=== PATIENT | male | born 1960 | race Hispanic/Latino ===

== ENCOUNTER 2017-08-16 13:31 | Inpatient (IN) | payer MEDICAID, OTHER ==
[2017-08-16 13:42] VITALS: BMI 36.1
--- NOTE | 2017-08-16 13:53 | ED PDOC ---
Arrival/HPI - General Time Seen by Provider: 08/16/17 13:40 Historian: Patient, EMS - History of Present Illness Narrative History of Present Illness (Text): 08/16/17 13:45 A 57 year old male, whose past medical history includes CVA with residual right sided weakness, hypertension and COPD, brought into the emergency department by EMS for possible code stroke. EMS reports patient was found face down on the floor unresponsive at 12:30 today. Patient was turned over then became uncooperative with slurred speech and was unable to move right side. Patient only recalls waking up at 10:00 this morning to have breakfast. Patient admits using heroin daily, her last used 2 bags of heroin yesterday night. He is unable to provide any further details. No clear time to when patient was last seen normal. Patient denies any fever, chills, nausea, vomiting, abdominal pain , chest pain, shortness of breath, headache, dizziness or any other complaints. PMD: Dr. Baxter Past Medical History - Provider Review Nursing Documentation Reviewed: Yes - Past History Past History: Non-Contributing - Infectious Disease Hx of Infectious Diseases: None - Cardiac Hx Hypertension: Yes - Pulmonary Hx Chronic Obstructive Pulmonary Disease (COPD): Yes Hx Emphysema: Yes - Neurological HX Cerebrovascular Accident: Yes Hx Seizures: No - HEENT Hx HEENT Disorder: No - Renal Hx Renal Disorder: No - Endocrine/Metabolic Hx Endocrine Disorders: No - Hematological/Oncological Hx Cancer: No - Integumentary Hx Dermatological Disorder: No - Musculoskeletal/Rheumatological Hx Musculoskeletal Disorders: Yes Hx Back Pain: Yes Hx Falls: No - Gastrointestinal Hx Gastrointestinal Disorders: No - Genitourinary/Gynecological Hx Sexually Transmitted Diseases: No - Psychiatric Hx Substance Use: Yes - Past Surgical History Past Surgical History: No Previous - Surgical History Hx Cardiac Catheterization: Yes - Anesthesia Hx Anesthesia: No - Suicidal Assessment Feels Threatened In Home Enviroment: No Family/Social History - Physician Review Nursing Documentation Reviewed: Yes Family/Social History: No Known Family HX Smoking Status: Light Smoker < 10 Cigarettes Daily Hx Alcohol Use: No Hx Substance Use: Yes Substance used: Heroin daily, last used yesterday night Hx Substance Use Treatment: Yes Allergies/Home Meds Allergies/Adverse Reactions: Allergies Penicillins Allergy (Verified 05/02/16 13:39) RASH Home Medications: Home Meds Medication Instructions Recorded Confirmed Tiotropium [Spiriva] 18 mcg IH DAILY 05/24/17 08/16/17 ALPRAZolam [Xanax] 1 tab PO TID PRN 08/16/17 08/16/17 Atorvastatin [Lipitor] 1 tab PO DAILY 08/16/17 08/16/17 Review of Systems - Physician Review All systems were reviewed & negative as marked: Yes - Review of Systems Constitutional: absent: Fevers, Night Sweats Respiratory: absent: SOB Cardiovascular: absent: Chest Pain Gastrointestinal: absent: Abdominal Pain, Nausea, Vomiting Neurological: Focal Weakness (right sided weakness ), Speech Changes (slurred speech). absent: Headache, Dizziness Physical Exam Vital Signs Reviewed: Yes Vital Signs Temp Pulse Resp BP Pulse Ox 08/16/17 18:20 78 17 165/100 H 95 08/16/17 17:32 82 18 159/110 H 98 08/16/17 16:39 87 168/123 H 08/16/17 16:37 86 18 168/123 H 95 08/16/17 14:45 195/116 H 08/16/17 13:32 98.6 F 89 18 156/122 H 94 L Temperature: Afebrile Blood Pressure: Hypertensive Pulse: Regular Respiratory Rate: Normal Appearance: Positive for: Well-Appearing, Non-Toxic, Comfortable Pain Distress: None Mental Status: Positive for: Alert and Oriented X 3 Finger Stick Blood Glucose: 98 - Systems Exam Head: Present: Other (Abrasion and hemotoma to right sided of forehead) Pupils: Present: PERRL Extroacular Muscles: Present: EOMI Conjunctiva: Present: Normal Mouth: Present: Moist Mucous Membranes Neck: Present: Normal Range of Motion Respiratory/Chest: Present: Clear to Auscultation, Good Air Exchange. No: Respiratory Distress, Accessory Muscle Use Cardiovascular: Present: Regular Rate and Rhythm, Normal S1, S2. No: Murmurs Abdomen: Present: Normal Bowel Sounds. No: Tenderness, Distention, Peritoneal Signs Back: Present: Normal Inspection Upper Extremity: Present: Normal Inspection, Normal ROM, NORMAL PULSES. No: Cyanosis, Edema Lower Extremity: Present: Normal Inspection, NORMAL PULSES. No: Edema, CALF TENDERNESS Neurological: Present: GCS=15, CN II-XII Intact, Speech Normal, Motor Func Grossly Intact, Normal Sensory Function, Normal Cerebellar Funct Skin: Present: Warm, Dry, Normal Color. No: Rashes Psychiatric: Present: Alert, Oriented x 3, Normal Insight, Normal Concentration Medical Decision Making ED Course and Treatment: 08/16/17 13:45 Impression: A 57 year old male brought in for slurred speech and right sided weakness. Patient admits to using 2 bags of heroin last night. Plan: -- Head CT -- Head CTA -- EKG -- Labs -- Reassess and disposition Progress Notes: Code stroke activated at 13:45. 08/16/17 13:45 Case discussed with neurologist Dr. Burnett, states no tPA since time frame is greater than 3 hours. Requests CTA head. States to administer Aspirin if CT results are negative. Report Date : 08/16/2017 14:11:06 PROCEDURE: CT HEAD WITHOUT CONTRAST. Dictator : Wisam Nino MD IMPRESSION: No acute findings. Dr. Lamas was called with results at 2:10 p.m. Report Date: 08/16/17 14:26 Procedure: CT angiography of the neck with contrast Dictated By: Wisam Thakkar MD Impression: Unremarkable CT angiography of the brain. EKG shows NSR at 93 BPM with 1 PVC. Interpreted by me. Will administer Aspirin. 08/16/17 14:55 On reevaluation, blood pressure 180/110. Patient denies any headache or dizziness at this time. Report Date : 08/16/2017 16:15:51 PROCEDURE: CT Cervical Spine without contrast Dictator : Rich Parada MD IMPRESSION: No acute findings related to/accounting for the clinical presentation. Additional benign and/or incidental findings described above. 08/16/17 16:33 Dr. Bae admitting physician for patients PMD Dr. Baxter. Case discussed with Dr. Bae, states to admit to hospitalist. Dr. Duncan jacob, awaiting call back. 08/16/17 17:[address] Song, who accepts patient admission to telemetry. 08/16/17 18:00 Negative Troponin. - Lab Interpretations Microbiology Results: Microbiology Results 08/16/17 14:41 Urine Urine Culture - Final <10,000 CFU/ML. MULTIPLE SPECIES. PROBABLE CONTAMINATION. Lab Results: 08/16/17 14:41 08/16/17 14:41 Lab Results 08/16/17 16:39: Urine Color Yellow, Urine Appearance Clear, Urine pH 6.5, Ur Specific [place] 1.010, Urine Protein Negative, Urine Glucose (UA) Negative, Urine Ketones Negative, Urine Blood Trace-intact H, Urine Nitrate Negative, Urine Bilirubin Negative, Urine Urobilinogen 0.2, Ur Leukocyte Esterase Negative , Urine RBC 0 - 2, Urine WBC 1 - 3, Ur Epithelial Cells 1 - 3 08/16/17 16:39: Urine Opiates Screen Positive H, Urine Methadone Screen Negative , Ur Barbiturates Screen Negative, Ur Phencyclidine Scrn Negative, Ur Amphetamines Screen Negative, U Benzodiazepines Scrn Negative, U Oth Cocaine Metabols Negative, U Cannabinoids Screen Negative 08/16/17 14:41: Hemoglobin A1c 6.1 08/16/17 14:41: Triglycerides 80, Cholesterol 166, LDL Cholesterol Direct 88, HDL Cholesterol 55 08/16/17 14:41: Troponin I < 0.01 08/16/17 14:41: WBC 8.9 D, RBC 5.32, Hgb 15.7, Hct 45.2, MCV 85.0, MCH 29.5, MCHC 34.7, RDW 15.2 H, Plt Count 123, MPV 10.4, Gran % 74.4 H, Lymph % (Auto) 13.4 L, Pierce % (Auto) 10.9 H, Eos % (Auto) 1.1 L, Baso % (Auto) 0.2, Gran # 6.59 H, Lymph # (Auto) 1.2, Pierce # (Auto) 1.0 H, Eos # (Auto) 0.1, Baso # (Auto ) 0.02 08/16/17 14:41: Sodium 136, Potassium 3.7, Chloride 99, Carbon Dioxide 25, Anion Gap 15, BUN 17, Creatinine 1.0, Est GFR ( Amer) > 60, Est GFR (Non- Af Amer) > 60, Random Glucose 106, Calcium 9.8, Total Bilirubin 1.1, AST 62 H, ALT 48, Alkaline Phosphatase 108, Total Protein 8.9 H, Albumin 4.3, Globulin 4.6 , Albumin/Globulin Ratio 0.9 L 08/16/17 14:41: PT 15.0 H, INR 1.31 H, APTT 35.4 - RAD Interpretation Radiology Orders: 08/16/17 13:46 HEAD W/O (CODE STROKE) [CT] Stat 08/16/17 13:47 CTA HEAD/NECK CODE STROKE [CT] Stat 08/16/17 14:54 CERVICAL SPINE W/O CONTRAST [CT] Stat - Medication Orders Current Medication Orders: Alprazolam (Xanax) 1 mg PO BID PRN; Protocol PRN Reason: Anxiety Last Admin: 08/20/17 21:20 Dose: 1 mg Behavioural Document 08/20/17 21:20 JAVIER (Rec: 08/20/17 21:20 JAVIER [id number]) Maintenance Maintenance Dose Yes Nonmedicinal Nonmedicinal Interventions Redirect Behavior Behavior for Medication: Anxiety Amlodipine Besylate (Norvasc) 10 mg PO DAILY MARLYN Last Admin: 08/20/17 09:16 Dose: 10 mg MAR Blood Pressure Document 08/20/17 09:16 TELOL (Rec: 08/20/17 09:16 TELOL [id number]) Blood Pressure Blood Pressure (100/60-150/90) 111/77 Aspirin (Ecotrin) 81 mg PO 0800 MARLYN Last Admin: 08/20/17 09:17 Dose: 81 mg Atorvastatin Calcium (Lipitor) 20 mg PO DIN MARLYN Last Admin: 08/20/17 17:34 Dose: 20 mg Clonidine HCl (Catapres) 0.1 mg PO TID PRN PRN Reason: hypertension Last Admin: 08/17/17 17:39 Dose: 0.1 mg MAR Pulse and Blood Pressure Document 08/17/17 17:39 DELIJ (Rec: 08/17/17 17:41 DELIJ [id number]) Pulse Pulse Rate (60-90) 78 Blood Pressure Blood Pressure (100/60-150/90) 156/108 Gabapentin (Neurontin) 300 mg PO BID MARLYN PRN Reason: Protocol Last Admin: 08/20/17 17:34 Dose: 300 mg Behavioural Document 08/20/17 17:34 [employer] (Rec: 08/20/17 17:34 [employer]VE[employer] WORKER [id number]) Maintenance Maintenance Dose Yes Nonmedicinal Nonmedicinal Interventions Therapeutic Communication Dextrose/Sodium Chloride (Dextrose 5%/0.45% Ns 1000 Ml) 1,000 mls @ 125 mls/hr IV .Q8H MARLYN Last Admin: 08/20/17 21:20 Dose: 125 mls/hr eMAR Start Stop Document 08/20/17 21:20 JAVIER (Rec: 08/20/17 21:21 JAVIER [id number]) Intravenous Solution Start Date 08/20/17 Start Time 21:21 End Date 08/21/17 Labetalol HCl (Trandate) 20 mg IV Q6H PRN PRN Reason: SBP>180 Lisinopril (Zestril) 20 mg PO DAILY MARLYN Last Admin: 08/20/17 09:16 Dose: 20 mg MAR Pulse and Blood Pressure Document 08/20/17 09:16 TELOL (Rec: 08/20/17 09:17 TELOL [id number]) Pulse Pulse Rate (60-90) 75 Blood Pressure Blood Pressure (100/60-150/90) 111/77 Lorazepam (Ativan) 1 mg IVP Q2H PRN; Protocol PRN Reason: Agitation Last Admin: 08/18/17 07:03 Dose: 1 mg IVP Administration Document 08/18/17 07:03 KOPPS (Rec: 08/18/17 07:04 KOPPS [id number]) Charges for Administration # of IVP Administrations 1 Behavioural Document 08/18/17 07:03 KOPPS (Rec: 08/18/17 07:04 KOPPS [id number]) Maintenance Maintenance Dose Yes Nonmedicinal Nonmedicinal Interventions Redirect Therapeutic Communication Activity Behavior Behavior for Medication: Anxiety Re-Assess: Reassess Psych Meds Document 08/18/17 07:33 KOPPS (Rec: 08/18/17 07:49 KOPPS [id number]) Reassess Psych Med Effective Paroxetine HCl (Paxil) 10 mg PO HS MARLYN Last Admin: 08/20/17 21:16 Dose: 10 mg Quetiapine Fumarate (Seroquel) 75 mg PO HS MARLYN PRN Reason: Protocol Tiotropium [place] (Spiriva) 18 mcg IH DAILY MARLYN Last Admin: 08/20/17 09:17 Dose: 18 mcg Discontinued Medications Alprazolam (Xanax) 1 mg PO TID PRN; Protocol PRN Reason: Anxiety Last Admin: 08/18/17 16:27 Dose: 1 mg Behavioural Document 08/18/17 16:27 DC (Rec: 08/18/17 16:27 DC [place] [id number]) Maintenance Maintenance Dose No Nonmedicinal Nonmedicinal Interventions Redirect Therapeutic Communication Activity Behavior Behavior for Medication: Anxiety Re-Assess: Reassess Psych Meds Document 08/18/17 17:27 DC (Rec: 08/18/17 18:17 DC [id number]) Reassess Psych Med Effective Amlodipine Besylate (Norvasc) 10 mg PO DAILY MARLYN Amlodipine Besylate (Norvasc) 10 mg PO STAT STA Stop: 08/17/17 07:45 Last Admin: 08/17/17 08:49 Dose: 10 mg MAR Blood Pressure Document 08/17/17 08:49 DELIJ (Rec: 08/17/17 08:50 DELIJ [id number]) Blood Pressure Blood Pressure (100/60-150/90) 169/71 Aspirin (Aspirin) 325 mg PO STAT STA Stop: 08/16/17 14:59 Last Admin: 08/16/17 15:21 Dose: 325 mg Atorvastatin Calcium (Lipitor) 40 mg PO DAILY [facility] Last Admin: 08/17/17 09:40 Dose: 40 mg Enalaprilat (Vasotec Iv) 1.25 mg IVP STAT STA Stop: 08/16/17 18:55 Last Admin: 08/16/17 19:24 Dose: Not Given Non-Admin Reason: BP Parameters Not Met MAR Blood Pressure Document 08/16/17 19:24 AP (Rec: 08/16/17 19:24 AP [id number]) Blood Pressure Blood Pressure (100/60-150/90) 143/88 Hydralazine HCl (Apresoline) 50 mg PO ONCE ONE Stop: 08/16/17 18:56 Last Admin: 08/16/17 19:59 Dose: 50 mg [facility] Pulse and Blood Pressure Document 08/16/17 19:59 AP (Rec: 08/16/17 19:59 AP [id number]) Pulse Pulse Rate (60-90) 75 Blood Pressure Blood Pressure (100/60-150/90) 143/88 Sodium Chloride (Sodium Chloride 0.9%) 500 mls @ 999 mls/hr IV .Q31M STA Stop: 08/19/17 17:32 Last Admin: 08/19/17 18:26 Dose: 999 mls/hr Comments: does not scan eMAR Start Stop Document 08/19/17 18:26 NALLELY (Rec: 08/19/17 18:26 NALLELY [id number]) Intravenous Solution Start Date 08/19/17 Start Time 18:26 Labetalol HCl (Trandate) 20 mg IV STAT STA Stop: 08/16/17 16:16 Last Admin: 08/16/17 16:39 Dose: 20 mg eMAR Start Stop Document 08/16/17 16:39 [facility] (Rec: 08/16/17 16:39 [facility] [id number]) Intravenous Solution Start Date 08/16/17 Start Time 16:39 End Date 08/16/17 End time 16:43 Total Infusion Time 4 MAR Pulse and Blood Pressure Document 08/16/17 16:39 [facility] (Rec: 08/16/17 16:39 [facility] [id number]) Pulse Pulse Rate (60-90) 87 Blood Pressure Blood Pressure (100/60-150/90) 168/123 Labetalol HCl (Trandate) 20 mg IV PRN PRN PRN Reason: SBP>180 Lisinopril (Zestril) 10 mg PO DAILY [facility] Last Admin: 08/17/17 09:40 Dose: 10 mg MAR Pulse and Blood Pressure Document 08/17/17 09:40 MAYTE (Rec: 08/17/17 09:40 [id number] Pulse Pulse Rate (60-90) 74 Blood Pressure Blood Pressure (100/60-150/90) 169/71 Lisinopril (Zestril) 10 mg PO DAILY [facility] Lisinopril (Zestril) 10 mg PO STAT STA Stop: 08/17/17 13:00 Last Admin: 08/17/17 13:55 Dose: 10 mg MAR Pulse and Blood Pressure Document 08/17/17 13:55 MAYTE (Rec: 08/17/17 13:55 [id number]) Pulse Pulse Rate (60-90) 88 Blood Pressure Blood Pressure (100/60-150/90) 169/108 Methadone HCl (Methadone) 20 mg PO ONCE ONE Stop: 08/17/17 12:05 Last Admin: 08/17/17 13:57 Dose: 20 mg MAR Pain Assessment Document 08/17/17 13:57 MAYTE (Rec: 08/17/17 13:58 [id number]) Pain Reassessment Is this a pain reassessment? No Presence of Pain Presence of Pain No Re-Assess: [facility] Pain Assessment Document 08/17/17 14:57 DELIJ (Rec: 08/17/17 17:39 DELIJ [id number]) Pain Reassessment Is this a pain reassessment? Yes Sleep Is patient sleeping during reassessment? No Presence of Pain Presence of Pain No Methadone HCl (Methadone) 15 mg PO ONCE ONE Stop: 08/18/17 12:01 Last Admin: 08/18/17 11:16 Dose: 15 mg [facility] Pain Assessment Document 08/18/17 11:16 DC (Rec: 08/18/17 11:16 DC [id number]) Pain Reassessment Is this a pain reassessment? Yes Presence of Pain Presence of Pain No Re-Assess: [facility] Pain Assessment Document 08/18/17 12:16 DC (Rec: 08/18/17 13:09 DC [id number]) Pain Reassessment Is this a pain reassessment? No Presence of Pain Presence of Pain No Description Effects of Pain not given for pain Methadone HCl (Methadone) 10 mg PO ONCE ONE Stop: 08/19/17 12:01 Last Admin: 08/19/17 11:34 Dose: Not Given Non-Admin Reason: Patient Refused [facility] Pain Assessment Document 08/19/17 11:34 NALLELY (Rec: 08/19/17 11:35 NALLELY [id number]) Pain Reassessment Is this a pain reassessment? No Pneumococcal Polyvalent Vaccine (Pneumovax 23 Vaccine) 0.5 ml IM .ONCE ONE Stop: 08/16/17 23:04 Last Admin: 08/16/17 23:49 Dose: Immunization Registry Document 08/16/17 23:49 AP (Rec: 08/16/17 23:49 AP [id number]) Immunization Registry Consent Date 05/24/17 Quetiapine Fumarate (Seroquel) 100 mg PO HS [facility] PRN Reason: Protocol Last Admin: 08/18/17 22:06 Dose: 100 mg Behavioural Document 08/18/17 22:06 KOPPS (Rec: 08/18/17 22:06 KOPPS [id number]) Maintenance Maintenance Dose Yes Nonmedicinal Nonmedicinal Interventions Redirect Therapeutic Communication Activity Behavior Behavior for Medication: Anxiety Re-Assess: Reassess Psych Meds Document 08/18/17 23:06 ROSSS (Rec: 08/19/17 05:37 KOPPS [id number]) Reassess Psych Med Effective Disposition/Present on Arrival - Present on Arrival Any Indicators Present on Arrival: No History of DVT/PE: No History of Uncontrolled Diabetes: No Urinary Catheter: No History Surgical Site Infection Following: None - Disposition Have Diagnosis and Disposition been Completed?: Yes Diagnosis: Syncope Disposition: HOSPITALIZED Disposition Time: 15:00 Patient Plan: Admission Patient Problems: Current Active Problems Problem Status Onset Syncope Acute Condition: STABLE
--- NOTE | 2017-08-16 14:19 | CT ---
PROCEDURE: CT HEAD WITHOUT CONTRAST. HISTORY: Code stroke COMPARISON: 07/25/2013 TECHNIQUE: Axial computed tomography images were obtained through the head/brain without intravenous contrast. Radiation dose: Total exam DLP = 1077 mGy-cm. This CT exam was performed using one or more of the following dose reduction techniques: Automated exposure control, adjustment of the mA and/or kV according to patient size, and/or use of iterative reconstruction technique. FINDINGS: HEMORRHAGE: No intracranial hemorrhage. BRAIN: No mass effect or edema. Chronic lacunar infarcts are seen in the left thalamus and the left leblanc radiata. VENTRICLES: Unremarkable. No hydrocephalus. CALVARIUM: Unremarkable. PARANASAL SINUSES: Unremarkable as visualized. No significant inflammatory changes. MASTOID AIR CELLS: Unremarkable as visualized. No inflammatory changes. OTHER FINDINGS: Dr. Lamas was called with results at 2:10 p.m. IMPRESSION: No acute findings
--- NOTE | 2017-08-16 14:28 | CT ---
PROCEDURE: CT Angiography of the neck with contrast HISTORY: ct COMPARISON: None available. TECHNIQUE: Contiguous axial images of the neck were obtained from the level of the skull-base to the superior mediastinum in the arteriographic phase of enhancement. Coronal and sagittal reformats or also generated. IV contrast dose: 150 cc of Omni 350 Radiation Dose - DLP: 738 mGy-cm This CT exam was performed using one or more of the following dose reduction techniques: Automated exposure control, adjustment of the mA and/or kV according to patient size, and/or use of iterative reconstruction technique. FINDINGS: RIGHT CAROTID ARTERIES: Common Carotid Artery: Normal. Carotid Bifurcation: Minimal calcified plaque. No significant stenosis Internal Carotid Artery:Normal. External Carotid Artery (proximal branches): Normal. LEFT CAROTID ARTERIES: Common Carotid Artery: Normal. Carotid Bifurcation: Minimal calcified plaque. No significant stenosis Internal Carotid Artery:Normal. External Carotid Artery (proximal branches): Normal. VERTEBRAL ARTERIES: Right Vertebral Artery: Normal. Left Vertebral Artery: Normal. OTHER FINDINGS: None. IMPRESSION: No evidence of stenosis CT Angiography of the Brain. HISTORY: ct COMPARISON: None available. TECHNIQUE: CT angiography of the intracranial arteries was performed. Coronal and sagittal maximum intensity projection reformated images were generated. This CT exam was performed using one or more of the following dose reduction techniques: Automated exposure control, adjustment of the mA and/or kV according to patient size, and/or use of iterative reconstruction technique. FINDINGS: INTERNAL CEREBRAL ARTERIES: Unremarkable. The skull base, petrous, cavernous and supraclinoid segments are bilaterally widely patent. ANTERIOR CEREBRAL ARTERIES: Unremarkable. A1 and A2 segments are widely patent. Smaller distal branches unremarkable, as visualized. MIDDLE CEREBRAL ARTERIES: Unremarkable. M1 and M2 segments are widely patent. Perisylvian branches grossly symmetric. POSTERIOR CIRCULATION: Basilar Artery: Unremarkable. Distal Vertebral Arteries: Unremarkable. Posterior Cerebral Arteries: Unremarkable. Posterior Inferior Cerebellar Arteries: Unremarkable. ANEURYSM/ VASCULAR MALFORMATIONS: None. OTHER FINDINGS: None. IMPRESSION: Unremarkable CT Angiography of the Brain.
[2017-08-16 15:02] LABS: BASO # 0.02 K/mm3 (0.0-2.0); BASO % 0.2 % (0.0-3.0); EOS # 0.1 (0.0-0.7); EOS % 1.1 % (1.5-5.0); GRAN # 6.59 (1.4-6.5); GRAN % 74.4 % (50.0-68.0); HEMOGLOBIN 15.7 g/dL (14.0-18.0); LYMPH # 1.2 (1.2-3.4); LYMPH % 13.4 % (22.0-35.0); MEAN CORPUSCULAR HEMOGLOBIN 29.5 pg (25.0-35.0); MEAN CORPUSCULAR HGB CONC 34.7 g/dl (31.0-37.0); MEAN PLATELET VOLUME 10.4 fl (7.0-11.0); MONO % 10.9 % (1.0-6.0); RBC 5.32 10^6/uL (3.5-6.1); RED CELL DISTRIBUTION WIDTH 15.2 % (11.5-14.5); WHITE BLOOD COUNT 8.9 10^3/ul (4.5-11.0)
[2017-08-16 15:08] LABS: ALB/GLOB RATIO 0.9 (1.1-1.8); ALBUMIN 4.3 g/dL (3.0-4.8); ALT/SGPT 48 U/L (7-56); AST/SGOT 62 U/L (17-59); BLOOD UREA NITROGEN 17 mg/dL (7-21); CALCIUM 9.8 mg/dL (8.4-10.5); GFR AFRICAN-AMERICAN > 60; GFR NON-AFRICAN AMERICAN > 60
[2017-08-16 15:10] LABS: INR 1.31 (0.93-1.08); PARTIAL THROMBOPLASTIN TIME 35.4 Seconds (25.1-36.5)
[2017-08-16] MEDS ORDERED: Labetalol 5 mg/ml Inj 20ML IV STA (16:15)
--- NOTE | 2017-08-16 16:17 | CT ---
PROCEDURE: CT Cervical Spine without contrast HISTORY: Trauma COMPARISON: None available. TECHNIQUE: Axial computed tomography images were obtained of the cervical spine without the use of intravenous contrast. Coronal and sagittal reformatted images were created and reviewed. Radiation dose: Total exam DLP = 030557 mGy-cm. This CT exam was performed using one or more of the following dose reduction techniques: Automated exposure control, adjustment of the mA and/or kV according to patient size, and/or use of iterative reconstruction technique. FINDINGS: VERTEBRAE: Reversal of the anatomic lordosis with kyphosis. Degree: Mild DISCS/SPINAL CANAL/NEURAL FORAMINA: Degenerative changes C5-6, C6-7. This primarily consists disc space. Discs heights are grossly preserved. PARASPINAL SOFT TISSUES: Unremarkable. OTHER FINDINGS: Upper lobe infiltrates incompletely visualized primarily affecting visible portions of the right upper lobe. Likely underlying emphysematous change. IMPRESSION: No acute findings related to/accounting for the clinical presentation. Additional benign and/or incidental findings described above.
[2017-08-16 17:03] LABS: PH,URINE 6.5 (4.7-8.0); URINE BILIRUBIN NEGATIVE (NEGATIVE); URINE BLOOD TRACE-INTACT (NEGATIVE); URINE GLUCOSE (UA) NEGATIVE (NEGATIVE); URINE LEUKOCYTE ESTERASE NEGATIVE Leu/uL (NEGATIVE); URINE PROTEIN NEGATIVE mg/dL (<30 mg/dL); URINE UROBILINOGEN 0.2 E.U./dL (<1 E.U./dL)
[2017-08-16 17:06] LABS: URINE APPEARANCE CLEAR (CLEAR); URINE COLOR YELLOW (YELLOW)
[2017-08-16 17:18] LABS: URINE RBC 0 - 2 /hpf (0-2)
[2017-08-16 17:22] LABS: BARBITURATES, UR NEGATIVE (NEGATIVE); BENZODIAZEPINES, UR NEGATIVE (NEGATIVE); OPIATES, UR POSITIVE (NEGATIVE); PHENCYCLIDINE, UR NEGATIVE (NEGATIVE)
--- NOTE | 2017-08-16 18:22 | CP.PCM.HP ---
<Liz Cooley - Last Filed: 08/16/17 19:03> History of Present Illness - History of Present Illness History of Present Illness: 57 year old male with a past medical history of hypertension, COPD, HCV, heroin snorting and tobacco smoking and a CVA with right sided residual weakness who presents for a syncopal episode. The son is present at bedside. The patient does not recollect the event. The son states he was sleeping and woke up to a loud noise and saw his father with his face planted on the floor (the area where he normally smokes cigarettes and snorts heroin). The patient denies any pre-syncopal events or experiencing any chest pain, nausea, twitching, or seizure like activity. The son was worried given his father's inebriated state so called 911. PMD: Dr. Baxter PMH: hypertension, CVA, HCV, heroin abuse PSH: Denies Allergies: Penicillin Medications: Reviewed Social: Disabled, smokes, drinks, and snorts heroin-used to do it intravenously in the past. Present on Admission - Present on Admission Any Indicators Present on Admission: No Review of Systems - Review of Systems All systems: reviewed and no additional remarkable complaints except Review of Systems: as per HPI Past Patient History - Infectious Disease Hx of Infectious Diseases: None - Past Medical History & Family History Past Medical History?: Yes - Past Social History Smoking Status: Light Smoker < 10 Cigarettes Daily - CARDIAC Hx Hypertension: Yes - PULMONARY Hx Chronic Obstructive Pulmonary Disease (COPD): Yes Hx Emphysema: Yes - NEUROLOGICAL HX Cerebrovascular Accident: Yes Hx Seizures: No - HEENT Hx HEENT Problems: No - RENAL Hx Chronic Kidney Disease: No - ENDOCRINE/METABOLIC Hx Endocrine Disorders: No - HEMATOLOGICAL/ONCOLOGICAL Hx Cancer: No - INTEGUMENTARY Hx Dermatological Problems: No - MUSCULOSKELETAL/RHEUMATOLOGICAL Hx Musculoskeletal Disorders: Yes Hx Back Pain: Yes Hx Falls: No - GASTROINTESTINAL Hx Gastrointestinal Disorders: No - GENITOURINARY/GYNECOLOGICAL Hx Sexually Transmitted Disorders: No - PSYCHIATRIC Hx Substance Use: Yes - SURGICAL HISTORY Hx Cardiac Catheterization: Yes - ANESTHESIA Hx Anesthesia: No Meds Allergies/Adverse Reactions: Allergies Allergy/AdvReac Type Severity Reaction Status Date / Time Penicillins Allergy RASH Verified 05/02/16 13:39 Physical Exam - Constitutional Appears: Non-toxic, No Acute Distress - Head Exam Head Exam: NORMOCEPHALIC Additional comments: abrasion on right forehead - Eye Exam Eye Exam: Conjunctival injection, Normal appearance - ENT Exam ENT Exam: Mucous Membranes Moist, Normal Oropharynx - Neck Exam Neck exam: Positive for: Normal Inspection - Respiratory Exam Respiratory Exam: Prolonged Expiratory Phase Additional comments: end expiratory wheezes - Cardiovascular Exam Cardiovascular Exam: RRR, +S1, +S2 - GI/Abdominal Exam GI & Abdominal Exam: Normal Bowel Sounds. absent: Guarding, Rebound - Extremities Exam Extremities exam: Positive for: normal inspection. Negative for: normal capillary refill - Back Exam Back exam: NORMAL INSPECTION. absent: CVA tenderness (L), CVA tenderness (R) - Neurological Exam Neurological exam: Alert, Oriented x3 Additional comments: right upper and lower extremity weakness - Psychiatric Exam Psychiatric exam: Normal Affect, Normal Mood - Skin Skin Exam: Dry, Intact, Normal Color, Warm Results - Vital Signs Recent Vital Signs: Last Vital Signs Temp 98.6 F 08/16/17 13:32 Pulse 82 08/16/17 17:32 Resp 18 08/16/17 17:32 BP 159/110 H 08/16/17 17:32 Pulse Ox 98 08/16/17 17:32 - Labs Result Diagrams: 08/16/17 14:41 08/16/17 14:41 Assessment & Plan - Assessment and Plan (Free Text) Assessment: 57 year old male with a past medical history of hypertension, COPD, HCV, heroin snorting and tobacco smoking and a CVA with right sided residual weakness who presents for a syncopal episode. Plan: 1) Syncope - CT head negative for acute infarct, but does demonstrate old left lacunar infarcts - CTA head, neck, and cervical spine - Consult neurology - Swallow and speech evaluation - PT evaulation - monitoring manager with vitals q4h 2) Hypertension - Amlodipine 10 mg - Lisinopril 10 mg 3) History of CVA - Aspirin 81 mg - Lipitor 40 mg 4) COPD - Tiotropium 18 mch INH 5) Affective disorder - Seroquel 100 mg HS - Xanax 1 mg TID PRN for anxiety 6) DVT - SCD Case discussed with attending physician, Dr. Delvis Song - Date & Time Date: 08/16/17 Time: 19:01 <Delvis Song - Last Filed: 08/18/17 16:40> Results - Vital Signs Recent Vital Signs: Last Vital Signs Temp 98.5 F 08/18/17 05:39 Pulse 89 08/18/17 05:39 Resp 20 08/18/17 05:39 BP 147/94 H 08/18/17 05:39 Pulse Ox 92 L 08/18/17 05:39 - Labs Result Diagrams: 08/16/17 14:41 08/16/17 14:41 Labs: Laboratory Results - last 24 hr 08/17/17 08/17/17 08/17/17 13:08 13:30 13:30 Vitamin B12 698 25-OH Vitamin D Total 22.4 L Thyroxine (T4) 15.4 H Total T3 1.80 H TSH 3rd Generation 0.22 L Attending/Attestation - Attestation I have personally seen and examined this patient.: Yes I have fully participated in the care of the patient.: Yes I have reviewed all pertinent clinical information: Yes Notes (Text): I have seen and examined the patient at bedside. Agree with the note above with the following additions/ exceptions: Briefly this is 57 year old male with history of hypertension, COPD, HCV (known and untreated), heroin abuse, tobacco use and CVA with right sided residual weakness who was brought by the son for evaluation of syncope. Patient denies any presyncopal and postictal confusion. CT revealed old lacunar infact. CTA pending. Patient is NPO until speech and swallow eval is done. Will start aspirin, lipitor, norvasc and lisinopril once he will pass his swallow eval. Continue seroquel and xanax prn. Tobacco and substance abuse counsellinng will be provided once he is more awake. Upon discharge patient will follow up with Dr Baxter. Dr Delvis Song
[2017-08-16] MEDS ORDERED: EnalaprilAT 1.25 mg/ml Inj IVP STA (18:54)
[2017-08-16] MEDS ORDERED: Labetalol 5 mg/ml Inj 20ML IV PRN ×2 (19:06→19:18)
[2017-08-16 20:27] LABS: HDL CHOLESTEROL 55 mg/dL (29-60)
[2017-08-16 20:37] LABS: LDL CHOLESTEROL 88 mg/dL (0-129)
[2017-08-16] MEDS ORDERED: Pneumococcal 23-Valent Vaccine IM ONE (23:03)
[2017-08-16] MEDS ORDERED: Influenza Vaccine 60 mcg/0.5 mL SYR (4YR UP) IM ONE (23:03)
--- NOTE | 2017-08-17 08:31 | RAD ---
HISTORY: code stroke COMPARISON: 05/02/2016 FINDINGS: LUNGS: No active pulmonary disease. PLEURA: No significant pleural effusion identified, no pneumothorax apparent. CARDIOVASCULAR: Mild cardiomegaly. OSSEOUS STRUCTURES: No significant abnormalities. VISUALIZED UPPER ABDOMEN: Normal. OTHER FINDINGS: None. IMPRESSION: No active disease.
[2017-08-17] MEDS: Tiotropium 18 mcg Cap For Inhalation IH SCH (11:01)
--- NOTE | 2017-08-17 11:08 | CARD ---
APPROVED REPORT EKG Measurement Heart [id number] [id number] <Conclusion> Sinus rhythm with one premature ventricular complex PRWP Possible Left atrial enlargement Left axis deviation/LAHB Prolonged QTc STTW changes c/w ischemia
--- NOTE | 2017-08-17 12:49 | CP.PCM.CON ---
History of Present Illness - History of Present Illness History of Present Illness: Mr. Yani Bravo is a 57 year old male with a past medical history of hypertension, COPD, HCV, heroin snorting and tobacco smoking and a CVA with right sided residual weakness who presents for a syncopal episode. The patient does not recollect the event. According to the H&P, his son states he was sleeping and woke up to a loud noise and saw his father with his face planted on the floor ( the area where he normally smokes cigarettes and snorts heroin).The son was worried given his father's inebriated state so called 911. The patient denies any pre-syncopal events or experiencing any chest pain, nausea, twitching, or seizure like activity. CTH of the head showed no acute findings. CTA of the head and neck showed no evidence of stenosis in the neck and unremarkable CTA of the brain. The UDOA showed positive for opiates.At present, he denies any headache, dizziness, blurred vision,tongue biting or incontinence, nausea, or vomiting. He does not remember being transported by ambulance, but remember being awake in the ED. He has superficial abrasion in his right side forehead and temporal area. Review of Systems - Review of Systems All systems: reviewed and no additional remarkable complaints except Past Patient History - Infectious Disease Hx of Infectious Diseases: None - Past Medical History & Family History Past Medical History?: Yes - Past Social History Smoking Status: Light Smoker < 10 Cigarettes Daily - CARDIAC Hx Hypertension: Yes Hx Peripheral Edema: Yes (ble +1) - PULMONARY Hx Respiratory Disorders: Yes (rti) Hx Chronic Obstructive Pulmonary Disease (COPD): Yes Hx Emphysema: Yes - NEUROLOGICAL HX Cerebrovascular Accident: Yes (r side weakness residual) Hx Dizziness: Yes Hx Seizures: No - HEENT Hx HEENT Problems: Yes (eyeglasses) - RENAL Hx Chronic Kidney Disease: No - ENDOCRINE/METABOLIC Hx Endocrine Disorders: No - HEMATOLOGICAL/ONCOLOGICAL Hx Hepatitis C: Yes - INTEGUMENTARY Other/Comment: abrasion/hematoma r forehead - MUSCULOSKELETAL/RHEUMATOLOGICAL Hx Falls: Yes (found face down unresponsive today) - GASTROINTESTINAL Hx Gastrointestinal Disorders: Yes (obese) - GENITOURINARY/GYNECOLOGICAL Hx Sexually Transmitted Disorders: No - PSYCHIATRIC Hx Substance Use: Yes (heroine iv) - SURGICAL HISTORY Hx Surgeries: Yes Hx Cardiac Catheterization: Yes - ANESTHESIA Hx Anesthesia: No Meds Allergies/Adverse Reactions: Allergies Allergy/AdvReac Type Severity Reaction Status Date / Time Penicillins Allergy RASH Verified 05/02/16 13:39 - Medications Medications: Current Medications Alprazolam (Xanax) 1 mg PO TID PRN; Protocol PRN Reason: Anxiety Last Admin: 08/16/17 19:59 Dose: 1 mg Amlodipine Besylate (Norvasc) 10 mg PO DAILY [facility] Aspirin (Ecotrin) 81 mg PO 0800 [facility] Last Admin: 08/17/17 08:50 Dose: 81 mg Atorvastatin Calcium (Lipitor) 40 mg PO DAILY [facility] Last Admin: 08/17/17 09:40 Dose: 40 mg Gabapentin (Neurontin) 300 mg PO BID [facility] PRN Reason: Protocol Last Admin: 08/17/17 09:40 Dose: 300 mg Labetalol HCl (Trandate) 20 mg IV Q6H PRN PRN Reason: SBP>180 Lisinopril (Zestril) 10 mg PO DAILY [facility] Last Admin: 08/17/17 09:40 Dose: 10 mg Lorazepam (Ativan) 1 mg IVP Q2H PRN; Protocol PRN Reason: Agitation Quetiapine Fumarate (Seroquel) 100 mg PO HS [facility] PRN Reason: Protocol Last Admin: 08/16/17 23:00 Dose: Not Given Tiotropium [place] (Spiriva) 18 mcg IH DAILY [facility] Last Admin: 08/17/17 11:01 Dose: 18 mcg Physical Exam - Constitutional Appears: No Acute Distress - Head Exam Head Exam: NORMAL INSPECTION - Eye Exam Eye Exam: PERRL Pupil Exam: NORMAL ACCOMODATION, PERRL - ENT Exam ENT Exam: Mucous Membranes Moist, Normal Exam - Neck Exam Neck exam: Positive for: Normal Inspection - Respiratory Exam Respiratory Exam: Clear to Auscultation Bilateral - Cardiovascular Exam Cardiovascular Exam: +S1, +S2 - GI/Abdominal Exam GI & Abdominal Exam: Normal Bowel Sounds, Soft. absent: Tenderness - Extremities Exam Extremities exam: Positive for: normal inspection - Neurological Exam Neurological exam: Alert, CN II-XII Intact, Oriented x3, Reflexes Normal - Expanded Neurological Exam Expanded Patient oriented to: person, place, time Cranial nerves: EOM's Intact: Normal, Facial Palsey w/Forehead Movement: Normal , Facial Palsey w/o Forehead Movement: Normal, Facial Sensation: Normal, Gag Reflex: Normal, Nystagmus: Normal, Tongue Deviation: Normal Ataxia: No Cerebellar Function: Finger to Nose: Normal, Heel to [place]: Normal Upper motor neuron: Pronator Drift: Normal, Sensory Extinction: Normal Sensory exam: Lower Extremity 2 Point Discrimination: Normal, Lower Extremity Light Touch: Normal, Lower Extremity Pin Prick: Normal, Lower Extremity Temperature: Normal, Upper Extremity 2 Point Discrimination: Normal, Upper Extremity Light Touch: Normal, Upper Extremity Pin Prick: Normal, Upper Extremity Temperature: Normal Neuro motor strength exam: Left Upper Extremity: 5, Right Upper Extremity: 4, Left Lower Extremity: 5, Right Lower Extremity: 4 Results - Vital Signs Recent Vital Signs: Last Vital Signs Temp 97.7 F 08/17/17 06:00 Pulse 74 08/17/17 09:40 Resp 20 08/17/17 06:00 BP 169/71 H 08/17/17 09:40 Pulse Ox 95 08/17/17 06:00 - Labs Result Diagrams: 08/16/17 14:41 08/16/17 14:41 Assessment & Plan (1) Syncope Assessment and Plan: 57 year old male with a past medical history of hypertension, COPD, HCV, heroin snorting and tobacco smoking and a CVA with right sided residual weakness who presents for a syncopal episode. Case discussed with Dr. Burnett with recommendations for the following 1. Telemetry monitoring 2. MRI of the brain without contrast 3. Echocardiogram 4. PT, OT, eval. and treat. 5. Aspirin 81 mg PO daily 6. Lipitor 20 mg PO daily to keep LDL< 70. 7. social media designer/ case management referral for alcohol/ drug counseling. 8. DVT prophylaxis. 9. Blood pressure control 10. Blood work: TSH, T3, T4, vitamin D, Vitamin b12 11. EEG Thank you Status: Acute
--- NOTE | 2017-08-17 13:42 | CP.PCM.PN ---
<MiladyDanny - Last Filed: 08/17/17 13:29> Subjective - Date & Time of Evaluation Date of Evaluation: 08/17/17 Time of Evaluation: 13:29 - Subjective Subjective: Medicine progress note: Dr. Tiffani Song Patient seen and examined at bedside. He states he does not recall biting his tongue, losing bowel bladder, or feeling post-ictal after his suspected syncopal episode. Patient does state that he feels like he is withdrawing, and is diaphoretic. Other than that, patient is doing okay. Patient does admit to injecting heroin two months ago but states that now he only snorts it. Objective - Vital Signs/Intake and Output Vital Signs (last 24 hours): Temp Pulse Resp BP Pulse Ox 97.7 F 74 20 169/71 H 95 08/17/17 06:00 08/17/17 09:40 08/17/17 06:00 08/17/17 09:40 08/17/17 06:00 Intake and Output: 08/17/17 08/17/17 06:59 18:59 Intake Total 240 Balance 240 - Medications Medications: Current Medications Alprazolam (Xanax) 1 mg PO TID PRN; Protocol PRN Reason: Anxiety Last Admin: 08/16/17 19:59 Dose: 1 mg Amlodipine Besylate (Norvasc) 10 mg PO DAILY [facility] Aspirin (Ecotrin) 81 mg PO 0800 [facility] Last Admin: 08/17/17 08:50 Dose: 81 mg Atorvastatin Calcium (Lipitor) 20 mg PO DIN [facility] Clonidine HCl (Catapres) 0.1 mg PO TID PRN PRN Reason: hypertension Gabapentin (Neurontin) 300 mg PO BID [facility] PRN Reason: Protocol Last Admin: 08/17/17 09:40 Dose: 300 mg Labetalol HCl (Trandate) 20 mg IV Q6H PRN PRN Reason: SBP>180 Lisinopril (Zestril) 20 mg PO DAILY [facility] Lorazepam (Ativan) 1 mg IVP Q2H PRN; Protocol PRN Reason: Agitation Quetiapine Fumarate (Seroquel) 100 mg PO HS [facility] PRN Reason: Protocol Last Admin: 08/16/17 23:00 Dose: Not Given Tiotropium [place] (Spiriva) 18 mcg IH DAILY [facility] Last Admin: 08/17/17 11:01 Dose: 18 mcg - Labs Labs: PT 15.0 SECONDS (9.4-12.5) H 08/16/17 14:41 INR 1.31 (0.93-1.08) H 08/16/17 14:41 APTT 35.4 Seconds (25.1-36.5) 08/16/17 14:41 - Constitutional Appears: Well - Head Exam Head Exam: NORMAL INSPECTION, NORMOCEPHALIC. absent: ATRAUMATIC (Patient has an abrasion on the right side of his forehead) - Eye Exam Eye Exam: EOMI, Normal appearance, PERRL Pupil Exam: NORMAL ACCOMODATION, PERRL - ENT Exam ENT Exam: Mucous Membranes Moist, Normal Exam - Neck Exam Neck Exam: Full ROM, Normal Inspection. absent: Lymphadenopathy - Respiratory Exam Respiratory Exam: Clear to Ausculation Bilateral, NORMAL BREATHING PATTERN - Cardiovascular Exam Cardiovascular Exam: REGULAR RHYTHM, +S1, +S2, Murmur (Aortic ausculation point) - GI/Abdominal Exam GI & Abdominal Exam: Soft, Normal Bowel Sounds. absent: Tenderness - Extremities Exam Extremities Exam: Full ROM, Normal Capillary Refill, Normal Inspection. absent : Joint Swelling, Pedal Edema - Back Exam Back Exam: NORMAL INSPECTION - Neurological Exam Neurological Exam: Alert, Awake, CN II-XII Intact, Normal Gait, Oriented x3 - Psychiatric Exam Psychiatric exam: Normal Affect, Normal Mood - Skin Skin Exam: Dry, Intact, Normal Color, Warm Assessment and Plan - Assessment and Plan (Free Text) Assessment: 57 year old male with a past medical history of hypertension, COPD, HCV, heroin snorting and tobacco smoking and a CVA with right sided residual weakness who presents for a syncopal episode. Plan: Syncope - CT head negative for acute infarct, but does demonstrate old left lacunar infarcts - CTA head and neck: no acute process - CT Cervical spine: - Consult neurology: Dr. Burnett - Swallow and speech evaluation: passed - PT evaulation: pending - air pumper with vitals q4h Hypertension - Amlodipine 10 mg - Lisinopril 20 mg - Patient started on .1 clonidine TID and was given stat dose of lisinopril 10 just now Heroin Abuse - Discussed use of Methadone 20 with patient, gave him 20 today - ECHO ordered, patient used to inject and murmur appreciated History of CVA - Aspirin 81 mg - Lipitor 40 mg COPD - Tiotropium 18 mch INH Affective disorder - Seroquel 100 mg HS - Xanax 1 mg TID PRN for anxiety DVT - SCD <Delvis Song - Last Filed: 08/18/17 16:44> Objective - Vital Signs/Intake and Output Vital Signs (last 24 hours): Temp Pulse Resp BP Pulse Ox 99.5 F 105 H 20 109/75 92 L 08/18/17 12:00 08/18/17 12:00 08/18/17 12:00 08/18/17 12:00 08/18/17 05:39 Intake and Output: 08/18/17 08/18/17 06:59 18:59 Intake Total 480 Output Total 550 Balance -70 - Medications Medications: Current Medications Alprazolam (Xanax) 1 mg PO TID PRN; Protocol PRN Reason: Anxiety Last Admin: 08/18/17 05:03 Dose: 1 mg Amlodipine Besylate (Norvasc) 10 mg PO DAILY [facility] Last Admin: 08/18/17 11:15 Dose: 10 mg Aspirin (Ecotrin) 81 mg PO 0800 [facility] Last Admin: 08/18/17 11:16 Dose: 81 mg Atorvastatin Calcium (Lipitor) 20 mg PO DIN [facility] Last Admin: 08/17/17 17:38 Dose: 20 mg Clonidine HCl (Catapres) 0.1 mg PO TID PRN PRN Reason: hypertension Last Admin: 08/17/17 17:39 Dose: 0.1 mg Gabapentin (Neurontin) 300 mg PO BID [facility] PRN Reason: Protocol Last Admin: 08/18/17 11:15 Dose: 300 mg Labetalol HCl (Trandate) 20 mg IV Q6H PRN PRN Reason: SBP>180 Lisinopril (Zestril) 20 mg PO DAILY [facility] Last Admin: 08/18/17 11:16 Dose: 20 mg Lorazepam (Ativan) 1 mg IVP Q2H PRN; Protocol PRN Reason: Agitation Last Admin: 08/18/17 07:03 Dose: 1 mg Quetiapine Fumarate (Seroquel) 100 mg PO HS [facility] PRN Reason: Protocol Last Admin: 08/17/17 22:21 Dose: Not Given Tiotropium [place] (Spiriva) 18 mcg IH DAILY [facility] Last Admin: 08/18/17 11:16 Dose: 18 mcg - Labs Labs: PT 15.0 SECONDS (9.4-12.5) H 08/16/17 14:41 INR 1.31 (0.93-1.08) H 08/16/17 14:41 APTT 35.4 Seconds (25.1-36.5) 08/16/17 14:41 Attending/Attestation - Attestation I have personally seen and examined this patient.: Yes I have fully participated in the care of the patient.: Yes I have reviewed all pertinent clinical information, including history, physical exam and plan: Yes Notes (Text): I have seen and examined the patient at bedside. Agree with the note above with the following additions/ exceptions: Briefly this is 57 year old male with history of hypertension, COPD, HCV (known and untreated), heroin abuse, tobacco use and CVA with right sided residual weakness who was brought by the son for evaluation of syncope. Patient denies any presyncopal and postictal confusion. CT revealed old lacunar infact. CTA unremarkable. Patient has passed swallow eval. Will continue aspirin, lipitor, norvasc, seroquel, xanax prn and lisinopril. Patient reports that he is withdrawing from heroin and has lacrimation, rhinorrhea, diaphoresis, nausea, cramps, dizziness, irritability, insomnia and agitation. Will start methadone. Tobacco and substance abuse counselling provided. Upon discharge patient will follow up with Dr Baxter. Dr Delvis Song
[2017-08-17 14:31] LABS: T4 15.4 ug/dL (5.5-11.0)
[2017-08-17 14:45] LABS: T3 1.8 ng/mL (0.97-1.69)
--- NOTE | 2017-08-17 16:31 | MRI ---
PROCEDURE: MRI BRAIN WITHOUT CONTRAST HISTORY: syncope COMPARISON: None. TECHNIQUE: Multiplanar, multisequence MR images of the brain were obtained without intravenous contrast enhancement. FINDINGS: HEMORRHAGE: There is a small area of hemosiderin deposition in the sandra consistent with a previous hemorrhagic infarct. DWI: No evidence of an acute or early subacute infarction. BRAIN PARENCHYMA: No mass effect or edema. Chronic lacunar infarcts are seen in the left leblanc radiata the left thalamus and the sandra. There are no acute findings. VENTRICLES: Unremarkable. No hydrocephalus. CRANIUM: Unremarkable. ORBITS: Grossly unremarkable. PARANASAL SINUSES/MASTOIDS: Clear VASCULAR SYSTEM: Skull base flow voids intact. OTHER FINDINGS: None. IMPRESSION: No acute findings
[2017-08-18] MEDS: Tiotropium 18 mcg Cap For Inhalation IH SCH (11:16)
--- NOTE | 2017-08-18 12:39 | CP.PCM.PN ---
Subjective - Date & Time of Evaluation Date of Evaluation: 08/18/17 Time of Evaluation: 12:32 - Subjective Subjective: Mr. Lomeli was seen and examined at the bedside. He is alert, oriented x 3. He denies any headache, lightheadedness, blurred vision, diplopia, nausea, and vomiting. He is able to follow simple commands. He is able to ambulate in steady gait. MRI of the brain showed no acute findings but small area of hemosiderin deposition in the sandra consistent with a previous hemorrhagic infarct. There was no untoward events overnight. Objective - Vital Signs/Intake and Output Vital Signs (last 24 hours): Temp Pulse Resp BP Pulse Ox 98.5 F 89 20 140/80 92 L 08/18/17 05:39 08/18/17 05:39 08/18/17 05:39 08/18/17 11:15 08/18/17 05:39 Intake and Output: 08/18/17 08/18/17 06:59 18:59 Intake Total 480 Output Total 550 Balance -70 - Medications Medications: Current Medications Alprazolam (Xanax) 1 mg PO TID PRN; Protocol PRN Reason: Anxiety Last Admin: 08/18/17 05:03 Dose: 1 mg Amlodipine Besylate (Norvasc) 10 mg PO DAILY [facility] Last Admin: 08/18/17 11:15 Dose: 10 mg Aspirin (Ecotrin) 81 mg PO 0800 [facility] Last Admin: 08/18/17 11:16 Dose: 81 mg Atorvastatin [place] (Lipitor) 20 mg PO DIN [facility] Last Admin: 08/17/17 17:38 Dose: 20 mg Clonidine HCl (Catapres) 0.1 mg PO TID PRN PRN Reason: hypertension Last Admin: 08/17/17 17:39 Dose: 0.1 mg Gabapentin (Neurontin) 300 mg PO BID [facility] PRN Reason: Protocol Last Admin: 08/18/17 11:15 Dose: 300 mg Labetalol HCl (Trandate) 20 mg IV Q6H PRN PRN Reason: SBP>180 Lisinopril (Zestril) 20 mg PO DAILY [facility] Last Admin: 08/18/17 11:16 Dose: 20 mg Lorazepam (Ativan) 1 mg IVP Q2H PRN; Protocol PRN Reason: Agitation Last Admin: 08/18/17 07:03 Dose: 1 mg Quetiapine Fumarate (Seroquel) 100 mg PO HS [facility] PRN Reason: Protocol Last Admin: 08/17/17 22:21 Dose: Not Given Tiotropium [place] (Spiriva) 18 mcg IH DAILY [facility] Last Admin: 08/18/17 11:16 Dose: 18 mcg - Labs Labs: PT 15.0 SECONDS (9.4-12.5) H 08/16/17 14:41 INR 1.31 (0.93-1.08) H 08/16/17 14:41 APTT 35.4 Seconds (25.1-36.5) 08/16/17 14:41 - Constitutional Appears: No Acute Distress - Head Exam Head Exam: NORMAL INSPECTION - Neurological Exam Neurological Exam: Alert, Awake, Oriented x3 Neuro motor strength exam: Left Upper Extremity: 5, Right Upper Extremity: 4, Left Lower Extremity: 5, Right Lower Extremity: 5 Additional comments: He is alert, oriented in all spheres, follows simple commands. Assessment and Plan (1) Syncope Assessment & Plan: Case discussed with Dr. Burnett, continue all current medical, physical, occupational therapies. Recommend to follow up with an outpatient neurologist and counselling regarding alcohol/ drug use upon discharge. Status: Acute
--- NOTE | 2017-08-18 17:40 | CP.PCM.PN ---
<MiladyDanny Mak - Last Filed: 08/18/17 18:09> Subjective - Date & Time of Evaluation Date of Evaluation: 08/18/17 Time of Evaluation: 17:37 - Subjective Subjective: Medicine progress note for Dr. Song Patient seen and examined at bedside, stated that he was withdrawing today. He got a xanax around 5A, but that did not help. Patient is also stating that he is wondering around ending his life, and patient said this to other staff as well. Other than that, patient has no new complaints Objective - Vital Signs/Intake and Output Vital Signs (last 24 hours): Temp Pulse Resp BP Pulse Ox 99.5 F 105 H 20 109/75 92 L 08/18/17 12:00 08/18/17 12:00 08/18/17 12:00 08/18/17 12:00 08/18/17 05:39 Intake and Output: 08/18/17 08/18/17 06:59 18:59 Intake Total 480 Output Total 550 Balance -70 - Medications Medications: Current Medications Alprazolam (Xanax) 1 mg PO TID PRN; Protocol PRN Reason: Anxiety Last Admin: 08/18/17 16:27 Dose: 1 mg Amlodipine Besylate (Norvasc) 10 mg PO DAILY [facility] Last Admin: 08/18/17 11:15 Dose: 10 mg Aspirin (Ecotrin) 81 mg PO 0800 [facility] Last Admin: 08/18/17 11:16 Dose: 81 mg Atorvastatin Calcium (Lipitor) 20 mg PO DIN [facility] Last Admin: 08/17/17 17:38 Dose: 20 mg Clonidine HCl (Catapres) 0.1 mg PO TID PRN PRN Reason: hypertension Last Admin: 08/17/17 17:39 Dose: 0.1 mg Gabapentin (Neurontin) 300 mg PO BID [facility] PRN Reason: Protocol Last Admin: 08/18/17 11:15 Dose: 300 mg Labetalol HCl (Trandate) 20 mg IV Q6H PRN PRN Reason: SBP>180 Lisinopril (Zestril) 20 mg PO DAILY [facility] Last Admin: 08/18/17 11:16 Dose: 20 mg Lorazepam (Ativan) 1 mg IVP Q2H PRN; Protocol PRN Reason: Agitation Last Admin: 08/18/17 07:03 Dose: 1 mg Quetiapine Fumarate (Seroquel) 100 mg PO [facility] PRN Reason: Protocol Last Admin: 08/17/17 22:21 Dose: Not Given Tiotropium [place] (Spiriva) 18 mcg IH DAILY [facility] Last Admin: 08/18/17 11:16 Dose: 18 mcg - Labs Labs: PT 15.0 SECONDS (9.4-12.5) H 08/16/17 14:41 INR 1.31 (0.93-1.08) H 08/16/17 14:41 APTT 35.4 Seconds (25.1-36.5) 08/16/17 14:41 - Constitutional Appears: Well - Head Exam Head Exam: ATRAUMATIC, NORMAL INSPECTION, NORMOCEPHALIC - Eye Exam Eye Exam: EOMI, Normal appearance, PERRL Pupil Exam: NORMAL ACCOMODATION, PERRL - ENT Exam ENT Exam: Mucous Membranes Moist, Normal Exam - Neck Exam Neck Exam: Full ROM, Normal Inspection. absent: Lymphadenopathy - Respiratory Exam Respiratory Exam: Clear to Ausculation Bilateral, NORMAL BREATHING PATTERN - Cardiovascular Exam Cardiovascular Exam: REGULAR RHYTHM, +S1, +S2. absent: Murmur - GI/Abdominal Exam GI & Abdominal Exam: Soft, Normal Bowel Sounds. absent: Tenderness - Extremities Exam Extremities Exam: Full ROM, Normal Capillary Refill, Normal Inspection. absent : Joint Swelling, Pedal Edema - Back Exam Back Exam: NORMAL INSPECTION - Neurological Exam Neurological Exam: Alert, Awake, CN II-XII Intact, Normal Gait, Oriented x3 - Psychiatric Exam Psychiatric exam: Normal Affect, Normal Mood - Skin Skin Exam: Dry, Intact, Normal Color, Warm Assessment and Plan - Assessment and Plan (Free Text) Assessment: 57 year old male with a past medical history of hypertension, COPD, HCV, heroin snorting and tobacco smoking and a CVA with right sided residual weakness who presents for a syncopal episode. Plan: Syncope - CT head negative for acute infarct, but does demonstrate old left lacunar infarcts - CTA head and neck: no acute process - CT Cervical spine: No acute findings - Consult neurology: Dr. Burnett - Swallow and speech evaluation: passed - PT evaulation: pending - dial brusher with vitals q4h Hypertension - Amlodipine 10 mg - Lisinopril 20 mg - Patient started on .1 clonidine TID and was given stat dose of lisinopril 10 just now Heroin Abuse - Discussed use of Methadone 20 with patient, gave him 20 today - ECHO ordered, patient used to inject and murmur appreciated: performed, pending read History of CVA - Aspirin 81 mg - Lipitor 40 mg COPD - Tiotropium 18 mch INH Affective disorder - Seroquel 100 mg HS - Xanax 1 mg TID PRN for anxiety Suicidal Ideations - Psych consult: Dr. Peguero - 1:1 DVT - SCD <Delvis Song B - Last Filed: 08/19/17 11:30> Objective - Vital Signs/Intake and Output Vital Signs (last 24 hours): Temp Pulse Resp BP Pulse Ox 97.5 F L 88 20 122/85 91 L 08/18/17 16:00 08/18/17 16:00 08/18/17 16:00 08/18/17 16:00 08/18/17 16:00 Intake and Output: 08/18/17 08/18/17 06:59 18:59 Intake Total 480 Output Total 550 Balance -70 - Medications Medications: Current Medications Alprazolam (Xanax) 1 mg PO TID PRN; Protocol PRN Reason: Anxiety Last Admin: 08/18/17 16:27 Dose: 1 mg Amlodipine Besylate (Norvasc) 10 mg PO DAILY [facility] Last Admin: 08/18/17 11:15 Dose: 10 mg Aspirin (Ecotrin) 81 mg PO 0800 [facility] Last Admin: 08/18/17 11:16 Dose: 81 mg Atorvastatin Calcium (Lipitor) 20 mg PO DIN [facility] Last Admin: 08/18/17 18:17 Dose: 20 mg Clonidine HCl (Catapres) 0.1 mg PO TID PRN PRN Reason: hypertension Last Admin: 08/17/17 17:39 Dose: 0.1 mg Gabapentin (Neurontin) 300 mg PO BID [facility] PRN Reason: Protocol Last Admin: 08/18/17 18:17 Dose: 300 mg Labetalol HCl (Trandate) 20 mg IV Q6H PRN PRN Reason: SBP>180 Lisinopril (Zestril) 20 mg PO DAILY [facility] Last Admin: 08/18/17 11:16 Dose: 20 mg Lorazepam (Ativan) 1 mg IVP Q2H PRN; Protocol PRN Reason: Agitation Last Admin: 08/18/17 07:03 Dose: 1 mg Quetiapine Fumarate (Seroquel) 100 mg PO HS [facility] PRN Reason: Protocol Last Admin: 08/17/17 22:21 Dose: Not Given Tiotropium [place] (Spiriva) 18 mcg IH DAILY [facility] Last Admin: 08/18/17 11:16 Dose: 18 mcg - Labs Labs: PT 15.0 SECONDS (9.4-12.5) H 08/16/17 14:41 INR 1.31 (0.93-1.08) H 08/16/17 14:41 APTT 35.4 Seconds (25.1-36.5) 08/16/17 14:41 Attending/Attestation - Attestation I have personally seen and examined this patient.: Yes I have fully participated in the care of the patient.: Yes I have reviewed all pertinent clinical information, including history, physical exam and plan: Yes Notes (Text): I have seen and examined the patient at bedside. Agree with the note above with the following additions/ exceptions: Briefly this is 57 year old male with history of hypertension, COPD, HCV (known and untreated), heroin abuse, tobacco use and CVA with right sided residual weakness who was brought by the son for evaluation of syncope. Patient denies any presyncopal and postictal confusion. CT revealed old lacunar infact. CTA unremarkable. Patient has passed swallow eval. Will continue aspirin, lipitor, norvasc, seroquel, xanax prn and lisinopril. Patient also has been having heroin withdrawal. Patient had lacrimation, rhinorrhea, diaphoresis, nausea, cramps, dizziness, irritability, insomnia and agitation. All symptoms are slightly better today. Continue tapering dose of methadone. Patient also expressed suicidal ideation. 1:1 was started and psych consult was called. Tobacco and substance abuse counselling provided. Upon discharge patient will follow up with Dr Baxter. Dr Delvis Song
[2017-08-19] MEDS: Tiotropium 18 mcg Cap For Inhalation IH SCH (09:23)
--- NOTE | 2017-08-19 13:30 | CP.PCM.PN ---
Subjective - Date & Time of Evaluation Date of Evaluation: 08/19/17 Time of Evaluation: 13:26 - Subjective Subjective: Medicine progress note: Dr. Tiffani Song Patient seen and examined at bedside. Patient denies any new complaints besides being sleepy. Objective - Vital Signs/Intake and Output Vital Signs (last 24 hours): Temp Pulse Resp BP Pulse Ox 97.8 F 70 20 120/80 94 L 08/19/17 06:00 08/19/17 06:00 08/19/17 06:00 08/19/17 09:22 08/19/17 06:00 Intake and Output: 08/19/17 08/19/17 06:59 18:59 Intake Total 900 Balance 900 - Medications Medications: Current Medications Alprazolam (Xanax) 1 mg PO TID PRN; Protocol PRN Reason: Anxiety Last Admin: 08/18/17 16:27 Dose: 1 mg Amlodipine Besylate (Norvasc) 10 mg PO DAILY [facility] Last Admin: 08/19/17 09:22 Dose: 10 mg Aspirin (Ecotrin) 81 mg PO 0800 [facility] Last Admin: 08/19/17 07:46 Dose: 81 mg Atorvastatin Calcium (Lipitor) 20 mg PO DIN [facility] Last Admin: 08/18/17 18:17 Dose: 20 mg Clonidine HCl (Catapres) 0.1 mg PO TID PRN PRN Reason: hypertension Last Admin: 08/17/17 17:39 Dose: 0.1 mg Gabapentin (Neurontin) 300 mg PO BID [facility] PRN Reason: Protocol Last Admin: 08/19/17 09:22 Dose: 300 mg Labetalol HCl (Trandate) 20 mg IV Q6H PRN PRN Reason: SBP>180 Lisinopril (Zestril) 20 mg PO DAILY [facility] Last Admin: 08/19/17 09:23 Dose: 20 mg Lorazepam (Ativan) 1 mg IVP Q2H PRN; Protocol PRN Reason: Agitation Last Admin: 08/18/17 07:03 Dose: 1 mg Quetiapine Fumarate (Seroquel) 100 mg PO HS [facility] PRN Reason: Protocol Last Admin: 08/18/17 22:06 Dose: 100 mg Tiotropium Lead (Spiriva) 18 mcg IH DAILY [facility] Last Admin: 08/19/17 09:23 Dose: 18 mcg - Labs Labs: PT 15.0 SECONDS (9.4-12.5) H 08/16/17 14:41 INR 1.31 (0.93-1.08) H 08/16/17 14:41 APTT 35.4 Seconds (25.1-36.5) 08/16/17 14:41 - Constitutional Appears: Well - Head Exam Head Exam: ATRAUMATIC, NORMAL INSPECTION, NORMOCEPHALIC - Eye Exam Eye Exam: EOMI, Normal appearance, PERRL Pupil Exam: NORMAL ACCOMODATION, PERRL - ENT Exam ENT Exam: Mucous Membranes Moist, Normal Exam - Neck Exam Neck Exam: Full ROM, Normal Inspection. absent: Lymphadenopathy - Respiratory Exam Respiratory Exam: Clear to Ausculation Bilateral, NORMAL BREATHING PATTERN - Cardiovascular Exam Cardiovascular Exam: REGULAR RHYTHM, +S1, +S2. absent: Murmur - GI/Abdominal Exam GI & Abdominal Exam: Soft, Normal Bowel Sounds. absent: Tenderness - Extremities Exam Extremities Exam: Full ROM, Normal Capillary Refill, Normal Inspection. absent : Joint Swelling, Pedal Edema - Back Exam Back Exam: NORMAL INSPECTION - Neurological Exam Neurological Exam: Alert, Awake, CN II-XII Intact, Normal Gait, Oriented x3 - Psychiatric Exam Psychiatric exam: Normal Affect, Normal Mood - Skin Skin Exam: Dry, Intact, Normal Color, Warm Assessment and Plan - Assessment and Plan (Free Text) Assessment: 57 year old male with a past medical history of hypertension, COPD, HCV, heroin snorting and tobacco smoking and a CVA with right sided residual weakness who presents for a syncopal episode. Plan: Syncope - CT head negative for acute infarct, but does demonstrate old left lacunar infarcts - CTA head and neck: no acute process - CT Cervical spine: No acute findings - Consult neurology: Dr. Burnett Patient should follow up as an outpatient - ECHO shows normal EF - Swallow and speech evaluation: passed - PT evaulation: Patient safe for discharge home - change director with vitals q4h Hypertension - Amlodipine 10 mg - Lisinopril 20 mg - Patient started on .1 clonidine TID Heroin Abuse - Discussed use of Methadone with patient; Methadone 10 given 08/19 (20 day 1, 15 day 2, 10 today) - Psych on board for cessation History of CVA - Aspirin 81 mg - Lipitor 40 mg COPD - Tiotropium 18 mch INH Affective disorder - Seroquel 100 mg HS - Xanax 1 mg TID PRN for anxiety Suicidal Ideations - Psych consult: Dr. Peguero Per Dr. Guo, patient should be kept for the weekend, may be taken to Psych tomorrow. Depends on bed availability - 1:1 discontinued DVT - SCD
[2017-08-19] MEDS ORDERED: Dextrose 50% SYRINGE Inj (50 ml) IVP ONE (16:55)
[2017-08-19] MEDS ORDERED: Sodium Chloride 0.9% 500 ML IV SCH (17:00)
[2017-08-19] MEDS ORDERED: Sodium Chloride 0.9% 500 ML IV STA (17:02)
[2017-08-19 17:27] LABS: HEMOGLOBIN 16.3 g/dL (14.0-18.0); MEAN CELL VOLUME 86.3 fl (80.0-105.0); MEAN CORPUSCULAR HEMOGLOBIN 30.1 pg (25.0-35.0); MEAN CORPUSCULAR HGB CONC 34.9 g/dl (31.0-37.0); MEAN PLATELET VOLUME 10.7 fl (7.0-11.0); RBC 5.41 10^6/uL (3.5-6.1); RED CELL DISTRIBUTION WIDTH 15.4 % (11.5-14.5); WHITE BLOOD COUNT 12.4 10^3/ul (4.5-11.0)
[2017-08-19 17:47] LABS: ALB/GLOB RATIO 1.1 (1.1-1.8); ALBUMIN 4.5 g/dL (3.0-4.8)
[2017-08-19 17:52] LABS: CALCIUM 9.8 mg/dL (8.4-10.5)
[2017-08-19 18:16] LABS: FREE T4 1.44 ng/dL (0.78-2.19)
[2017-08-19] MEDS: Dextrose 5%/0.45% NS 1,000 ML IV SCH (18:25)
--- NOTE | 2017-08-19 18:42 | CT ---
PROCEDURE: CT HEAD WITHOUT CONTRAST. HISTORY: Patient sukhdeep, has hx of cva COMPARISON: Comparison is made to the previous study dated 08/16/2017 TECHNIQUE: Axial computed tomography images were obtained through the head/brain without intravenous contrast. Radiation dose: Total exam DLP = 1006.97 mGy-cm. This CT exam was performed using one or more of the following dose reduction techniques: Automated exposure control, adjustment of the mA and/or kV according to patient size, and/or use of iterative reconstruction technique. FINDINGS: HEMORRHAGE: No intracranial hemorrhage. BRAIN: Again seen are foci of encephalomalacia at the left basal ganglia and leblanc radiata suggestive of old chronic infarction. Mild atrophy and mild chronic microvascular white matter ischemic disease are again noted. VENTRICLES: Unremarkable. No hydrocephalus. CALVARIUM: Unremarkable. PARANASAL SINUSES: Unremarkable as visualized. No significant inflammatory changes. MASTOID AIR CELLS: Unremarkable as visualized. No inflammatory changes. OTHER FINDINGS: None. IMPRESSION: No significant interval change noted since the previous exam. No evidence of acute intracranial hemorrhage mass effect or midline shift.
--- NOTE | 2017-08-20 00:29 | CON ---
DATE: HISTORY OF PRESENT ILLNESS: The patient is a 57-year-old white male with a long history of opiate dependency, almost 50-year history with multiple relapses, history of likely substance-induced mood disorder, possible major depression, anxiety disorder, no prior psychiatric admissions, no current psychiatric outpatient treatment, no history of suicide attempt, who was admitted to Medicine due to status post a syncopal episode. Psychiatrist called this patient; he indicated that he did not want to live anymore, and Psychiatry was requested for evaluation in this regard. Patient has been on a one-to-one and has been in fair control, but currently I prepared this recent note and met the patient at bedside. He feels tired, mildly sedated; however, he is well oriented to month, year, circumstances; and responses are coherent and consistent. Patient demonstrates that he is friendly and he is engaged and cooperative with questioning. Patient admits to feeling depressed, reports that this is because of major stressors, which includes his difficulty with opiate dependency, which started at age 10 and continues to use 10 to 15 bags of heroin daily. Patient also uses multiple other drugs and states, "doctor, I will be honest, I will use whatever comes my way." Patient is prescribed Xanax 1 mg p.o. t.i.d. by his primary care doctor, who he does not know the name of but is located on [place]. Patient reports that he minimizes the use of Xanax because he is aware that this drug can cause seizures and . Consistent with this, the patient has not required the Xanax three times daily while he was hospitalized [facility]. Patient appears generally well related and is not overly constricted and does not appear hopeless. He reports multiple stressors such as, as mentioned, heroin use as well as financial issues and he is wishing to move back to his home. Patient also has legal issues and putting a warrant for misdemeanor conduct, and because of this he cannot apply for housing. Patient reports that he wants to live; however, feels overwhelmed by current stressors. He also indicates that he is worried about returning to drugs, he has a very long history, and would like some social support as well in this regard. He does not appear to be interested in psychiatric admission at this time. Denies any suicidal thoughts or wishes and presented coherent, calm, and consistent and does not show any evidence of thought disorder. The vital signs and labs were reviewed by this provider. Relevant medications include Xanax 1 mg p.o. t.i.d., Neurontin 300 mg p.o. b.i.d., Ativan 1 mg IV q. 2 p.r.n., Seroquel 100 mg p.o. nightly and patient also received a 10 mg dose of methadone at noon this morning. SOCIAL HISTORY: The patient was born and raised in [place]. He is . He has three sons, he lives with his older son. He had a stroke a few years ago which led him to be on disability. Patient has a very long debilitating history of opiate dependency since age 10 with multiple relapses. He currently uses 10-15 bags of heroin daily and "whatever else he can gets his hands on." Please note that UDS was only positive for opiates on 08/16/2017. Patient reports there is warrant for arrest for misdemeanor due to disorderly conduct. Patient denies any alcohol abuse. Patient reports that he is prescribed Xanax 1 mg p.o. t.i.d.; however, does not use this medication on a daily basis. He fears the repercussions from withdrawal can lead to , and patient reports he has a supply at home which was recently written to him by his primary care doctor located in [place]. PSYCHIATRIC HISTORY: Patient denies any prior psychiatric admissions, suicide attempts, or psychiatric outpatient treatment. As noted above in social history, he is prescribed Xanax 1 mg p.o. t.i.d. by his primary care doctor and reports he has a supply at home and that he tries to take his medication infrequently as he is aware that would cause stroke and lead to . 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 RECOMMENDATIONS: At this time, patient is not in acute danger to himself or others; however, would benefit from stabilization on the Psychiatric Unit; however, patient differs on this treatment intervention. I would continue Xanax 1 mg p.o. t.i.d. p.r.n. for patient. He appears to be using this medication possibly on the unit. I would also continue Seroquel; however, lowered the dose to 75 mg nightly that he appeared very little sedated this morning. I would continue methadone 10 mg, to be decreased to 5 mg tomorrow, and then discontinued on Monday. Regarding depression, it is unclear whether the patient requires an antidepressant at this time as he does have multiple stressors including drug use causing mood issues as well as the fact that the patient does not appear hopeless or apathetic or depressed during my interview with him this morning. We will hold on an antidepressant recommendation at this time unless of course he changes his mind about going to the Psychiatric Inpatient Unit. I strongly recommend the patient that he get Social Work involved to determine his options regarding inpatient versus outpatient rehab program as well as referrals for prescribers of possible Suboxone or methadone on even naltrexone, which may help patient focus on his main priorities of improving his life rather than obtaining his next opiate dose for his craving. Patient knows that naltrexone cannot be given to the patient at this time as he must be clean from all opiates for at least 7 to 10 days. Psychiatry will continue to follow the patient every other day to monitor his progress on the unit and tolerance to the medication and stability. Please note that next followup will be on 08/21/2017. Osmany Guo MD
[2017-08-20] MEDS: Dextrose 5%/0.45% NS 1,000 ML IV SCH ×4 (06:06→21:20)
[2017-08-20 08:57] LABS: HEMOGLOBIN 15.2 g/dL (14.0-18.0); MEAN CELL VOLUME 87.2 fl (80.0-105.0); MEAN CORPUSCULAR HEMOGLOBIN 29.9 pg (25.0-35.0); MEAN CORPUSCULAR HGB CONC 34.3 g/dl (31.0-37.0); MEAN PLATELET VOLUME 10.6 fl (7.0-11.0); RBC 5.08 10^6/uL (3.5-6.1); RED CELL DISTRIBUTION WIDTH 15.2 % (11.5-14.5); WHITE BLOOD COUNT 9.1 10^3/ul (4.5-11.0)
[2017-08-20 09:10] LABS: CALCIUM 9.4 mg/dL (8.4-10.5)
[2017-08-20] MEDS: Tiotropium 18 mcg Cap For Inhalation IH SCH (09:17)
--- NOTE | 2017-08-20 12:46 | CP.PCM.PN ---
<MiladyDanny - Last Filed: 08/20/17 12:42> Subjective - Date & Time of Evaluation Date of Evaluation: 08/20/17 Time of Evaluation: 12:42 - Subjective Subjective: Medicine progress note: Dr. Talbot Patient seen and examined at bedside. Patient states he still feels drowsy, but feels better from yesterday. Patient denies any other complaints, and is willing to go to psych. Nurse called me yesterday and stated that patient felt fatigued and drowsy. Given Hx of CVA and initial presentation, I ordered Fingerstick, CT Head, Carotid U/s, NS bolus and D5 at 125/hr. Patient felt better. Objective - Vital Signs/Intake and Output Vital Signs (last 24 hours): Temp Pulse Resp BP Pulse Ox 97.8 F 81 19 111/77 98 08/20/17 06:00 08/20/17 10:00 08/20/17 06:00 08/20/17 09:16 08/20/17 06:00 Intake and Output: 08/20/17 08/20/17 06:59 18:59 Intake Total 1440 3480 Output Total 600 600 Balance 840 2880 - Medications Medications: Current Medications Alprazolam (Xanax) 1 mg PO BID PRN; Protocol PRN Reason: Anxiety Amlodipine Besylate (Norvasc) 10 mg PO DAILY [facility] Last Admin: 08/20/17 09:16 Dose: 10 mg Aspirin (Ecotrin) 81 mg PO 0800 [facility] Last Admin: 08/20/17 09:17 Dose: 81 mg Atorvastatin Calcium (Lipitor) 20 mg PO DIN [facility] Last Admin: 08/19/17 18:29 Dose: 20 mg Clonidine HCl (Catapres) 0.1 mg PO TID PRN PRN Reason: hypertension Last Admin: 08/17/17 17:39 Dose: 0.1 mg Gabapentin (Neurontin) 300 mg PO BID [facility] PRN Reason: Protocol Last Admin: 08/20/17 09:16 Dose: 300 mg Dextrose/Sodium Chloride (Dextrose 5%/0.45% Ns 1000 Ml) 1,000 mls @ 125 mls/hr IV .Q8H [facility] Last Admin: 08/20/17 10:35 Dose: Not Given Labetalol HCl (Trandate) 20 mg IV Q6H PRN PRN Reason: SBP>180 Lisinopril (Zestril) 20 mg PO DAILY [facility] Last Admin: 08/20/17 09:16 Dose: 20 mg Lorazepam (Ativan) 1 mg IVP Q2H PRN; Protocol PRN Reason: Agitation Last Admin: 08/18/17 07:03 Dose: 1 mg Paroxetine HCl (Paxil) 10 mg PO HS [facility] Quetiapine Fumarate (Seroquel) 75 mg PO HS [facility] PRN Reason: Protocol Tiotropium [place] (Spiriva) 18 mcg IH DAILY [facility] Last Admin: 08/20/17 09:17 Dose: 18 mcg - Labs Labs: 08/20/17 08:45 08/20/17 08:45 PT 15.0 SECONDS (9.4-12.5) H 08/16/17 14:41 INR 1.31 (0.93-1.08) H 08/16/17 14:41 APTT 35.4 Seconds (25.1-36.5) 08/16/17 14:41 - Constitutional Appears: Well - Head Exam Head Exam: ATRAUMATIC, NORMAL INSPECTION, NORMOCEPHALIC - Eye Exam Eye Exam: EOMI, Normal appearance, PERRL Pupil Exam: NORMAL ACCOMODATION, PERRL - ENT Exam ENT Exam: Mucous Membranes Moist, Normal Exam - Neck Exam Neck Exam: Full ROM, Normal Inspection. absent: Lymphadenopathy - Respiratory Exam Respiratory Exam: Clear to Ausculation Bilateral, NORMAL BREATHING PATTERN - Cardiovascular Exam Cardiovascular Exam: REGULAR RHYTHM, +S1, +S2. absent: Murmur - GI/Abdominal Exam GI & Abdominal Exam: Soft, Normal Bowel Sounds. absent: Tenderness - Extremities Exam Extremities Exam: Full ROM, Normal Capillary Refill, Normal Inspection. absent : Joint Swelling, Pedal Edema - Back Exam Back Exam: NORMAL INSPECTION - Neurological Exam Neurological Exam: Alert, Awake, CN II-XII Intact, Normal Gait, Oriented x3 - Psychiatric Exam Psychiatric exam: Normal Affect, Normal Mood - Skin Skin Exam: Dry, Intact, Normal Color, Warm Assessment and Plan - Assessment and Plan (Free Text) Assessment: 57 year old male with a past medical history of hypertension, COPD, HCV, heroin snorting and tobacco smoking and a CVA with right sided residual weakness who presents for a syncopal episode. Plan: Syncope - CT head negative for acute infarct, but does demonstrate old left lacunar infarcts - CTA head and neck: no acute process - CT Cervical spine: No acute findings - Consult neurology: Dr. 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 - CT head yesterday: No acute process - Carotid U/s: Performed, pending read AMANDA likely 2/2 dehydration - Patient's creatinine was 4.1 08/19, down to 2.8 08/20 - Continue hydration Hypertension - Hold all meds right now except Clonidine .1 TID - Amlodipine 10 mg - Lisinopril 20 mg - Patient started on .1 clonidine TID Heroin Abuse - Discussed use of Methadone with patient; No more methadone being given - Psych on board for cessation - Xanax for severe withdrawals History of CVA - Aspirin 81 mg - Lipitor 40 mg COPD - Tiotropium 18 mch INH Affective disorder - Seroquel 100 mg HS - Xanax 1 mg TID PRN for anxiety Suicidal Ideations - Psych consult: Dr. Peguero Per Dr. Guo, patient should be kept for the weekend, may be taken to Psych tomorrow. Depends on bed availability - 1:1 discontinued DVT - SCD Dispo: Pending resolution of AMANDA, Carotid Ultrasound read, and bed availability , patient may be able to go to psych tomorrow <Breanna Talbot - Last Filed: 08/20/17 14:45> Objective - Vital Signs/Intake and Output Vital Signs (last 24 hours): Temp Pulse Resp BP Pulse Ox 99.6 F 74 18 146/91 H 98 08/20/17 12:00 08/20/17 14:00 08/20/17 12:00 08/20/17 12:00 08/20/17 06:00 Intake and Output: 08/20/17 08/20/17 06:59 18:59 Intake Total 1440 3480 Output Total 600 600 Balance 840 2880 - Medications Medications: Current Medications Alprazolam (Xanax) 1 mg PO BID PRN; Protocol PRN Reason: Anxiety Amlodipine Besylate (Norvasc) 10 mg PO DAILY [facility] Last Admin: 08/20/17 09:16 Dose: 10 mg Aspirin (Ecotrin) 81 mg PO 0800 [facility] Last Admin: 08/20/17 09:17 Dose: 81 mg Atorvastatin Calcium (Lipitor) 20 mg PO DIN [facility] Last Admin: 08/19/17 18:29 Dose: 20 mg Clonidine HCl (Catapres) 0.1 mg PO TID PRN PRN Reason: hypertension Last Admin: 08/17/17 17:39 Dose: 0.1 mg Gabapentin (Neurontin) 300 mg PO BID [facility] PRN Reason: Protocol Last Admin: 08/20/17 09:16 Dose: 300 mg Dextrose/Sodium Chloride (Dextrose 5%/0.45% Ns 1000 Ml) 1,000 mls @ 125 mls/hr IV .Q8H [facility] Last Admin: 08/20/17 10:35 Dose: Not Given Labetalol HCl (Trandate) 20 mg IV Q6H PRN PRN Reason: SBP>180 Lisinopril (Zestril) 20 mg PO DAILY [facility] Last Admin: 08/20/17 09:16 Dose: 20 mg Lorazepam (Ativan) 1 mg IVP Q2H PRN; Protocol PRN Reason: Agitation Last Admin: 08/18/17 07:03 Dose: 1 mg Paroxetine HCl (Paxil) 10 mg PO HS [facility] Quetiapine Fumarate (Seroquel) 75 mg PO HS [facility] PRN Reason: Protocol Tiotropium [place] (Spiriva) 18 mcg IH DAILY [facility] Last Admin: 08/20/17 09:17 Dose: 18 mcg - Labs Labs: 08/20/17 08:45 08/20/17 08:45 PT 15.0 SECONDS (9.4-12.5) H 08/16/17 14:41 INR 1.31 (0.93-1.08) H 08/16/17 14:41 APTT 35.4 Seconds (25.1-36.5) 08/16/17 14:41 Attending/Attestation - Attestation I have personally seen and examined this patient.: Yes I have fully participated in the care of the patient.: Yes I have reviewed all pertinent clinical information, including history, physical exam and plan: Yes Notes (Text): 08/20/17 14:40 attending note; Patient seen and examined with resident. Patient is a 57 year old male with history of hypertension, COPD, HCV (known and untreated), heroin abuse, tobacco use and CVA with right sided residual weakness who was brought by the son for evaluation of syncope. Patient denies any presyncopal and postictal confusion. CT revealed old lacunar infact. CTA unremarkable. MRI of the brain is normal. patient had an episode of hypotension and dizziness yesterday. Repeat CT head is normal. Blood pressure medications on hold. creatinine improved from 4.1-2.6. continue IV fluids. Monitor creatinine closely. Will continue aspirin, lipitor. neurology evaluation appreciated. Patient also has been having heroin withdrawal.improved significantly. Patient also expressed suicidal ideation. Psychiatric evaluation appreciated. One-to-one discontinued. Tobacco and substance abuse counselling provided. Upon discharge patient will follow up with Dr. Baxter. possible transfer to psychiatric floor tomorrow if creatinine improves.
--- NOTE | 2017-08-21 00:24 | CON ---
DATE: HISTORY OF PRESENT ILLNESS: Patient is a 57-year-old white male with a long history of opiate dependency with multiple relapses, history of substance-induced mood disorder, anxiety disorder, multiple bouts of depression throughout his life, no prior psychiatric admissions, no current outpatient psychiatric treatment or suicide attempts, who was admitted to Medicine for further evaluation status post syncopal episode. Psychiatry was called to follow up on patient as he indicated to staff nurse that he did not want to live anymore. I met with patient at bedside yesterday and patient indicated that he was not suicidal or he was depressed and that he was frustrated about his stressors in his life. I met with him again today and he remains well oriented to month, year, and circumstances. His responses are coherent and consistent as they were yesterday. He is friendly, he is engaged, and he reports feeling more depressed today, a little hopeless, which he relates to his major stressors which include his opiate addiction and pending legal issues, and wish to finally move out of his son's home. He reports that he has low motivation, low energy, feels overwhelmed easily as well as hopeless and helpless. He is not hallucinating. He denies hallucinations. Anxiety is under fair control. There have been no behavioral issues on the unit. Affect is constricted, but at times appropriately reactive. Insight and judgement are considered to be fair. Vital signs and laboratory data were reviewed by this provider. Psychiatric medications were reviewed by this provider including Xanax 1 mg p.o. b.i.d. p.r.n., Neurontin 300 mg p.o. b.i.d., Seroquel 100 mg p.o. nightly. IMPRESSION: 1. Mood disorder, not otherwise specified. 2. Severe opiate use disorder. 3. Anxiety disorder, not otherwise specified, likely contribution of substance-induced mood disorder and substance-induced anxiety disorder, rule out major depressive disorder, moderate to severe. RECOMMENDATIONS: At this time, we will continue with medications as prescribed and start low-dose antidepressants for this patient, as this might help with his mood and anxiety. I appreciate that the patient's Xanax dose was decreased to 1 mg p.o. b.i.d., and addition of a standing agent might decrease his reliance on p.r.n. benzos for anxiety. Seroquel will be reduced to 75 mg nightly. Patient is interested in transfer to the Psychiatric Inpatient Unit for treatment and stabilization of depression; however, there are no beds available at this time. We will continue to monitor the patient on the medical floor. The Psychiatry will continue to visit with the patient in the medical floor and monitor his mood, symptoms, tolerance to the medications and determine continued appropriateness of psychiatric transfer. Specifically, Dr. Campos will follow up with patient tomorrow, on 08/21/2017. Osmany Guo MD
[2017-08-21] MEDS: Dextrose 5%/0.45% NS 1,000 ML IV SCH ×2 (06:17→14:31)
[2017-08-21 06:51] LABS: BASO # 0.04 K/mm3 (0.0-2.0); BASO % 0.5 % (0.0-3.0); EOS # 0.4 (0.0-0.7); EOS % 4.6 % (1.5-5.0); GRAN # 4.63 (1.4-6.5); GRAN % 54.6 % (50.0-68.0); HEMOGLOBIN 16.2 g/dL (14.0-18.0); LYMPH # 2.3 (1.2-3.4); LYMPH % 27.4 % (22.0-35.0); MEAN CORPUSCULAR HEMOGLOBIN 29.7 pg (25.0-35.0); MEAN PLATELET VOLUME 10.6 fl (7.0-11.0); MONO # 1.1 (0.1-0.6); MONO % 12.9 % (1.0-6.0); RBC 5.45 10^6/uL (3.5-6.1); RED CELL DISTRIBUTION WIDTH 14.7 % (11.5-14.5); WHITE BLOOD COUNT 8.5 10^3/ul (4.5-11.0)
[2017-08-21 07:18] LABS: ALB/GLOB RATIO 0.9 (1.1-1.8); ALBUMIN 3.8 g/dL (3.0-4.8); ALT/SGPT 38 U/L (7-56); AST/SGOT 36 U/L (17-59); BLOOD UREA NITROGEN 24 mg/dL (7-21); GFR AFRICAN-AMERICAN > 60; GFR NON-AFRICAN AMERICAN > 60
--- NOTE | 2017-08-21 10:02 | CARD ---
APPROVED REPORT EXAM: Two-dimensional and M-mode echocardiogram with Doppler and color Doppler. Other Information Quality : AverageRhythm : INDICATION Syncope , IV DRUG ABUSE 2D DIMENSIONS RVDd3.8 (2.9-3.5cm)Left Atrium (2D)3.8 (1.6-4.0cm) IVSd1.0 (0.7-1.1cm)LVDd4.0 (3.9-5.9cm) PWd1.2 (0.7-1.1cm)LVDs2.5 (2.5-4.0cm) FS (%) 37.9 %LVEF (%)68.0 (>50%) M-Mode DIMENSIONS Aortic Root3.80 (2.2-3.7cm)Aortic Cusp Exc.1.90 (1.5-2.0cm) Aortic Valve AoV Peak Qjtqdamu096.0cm/s Mitral Valve MV E Zywfizzo14.1cm/sMV A Kqyprqxa70.2cm/sE/A ratio0.6 TDI Lateral E' Peak V8.97cm/sMedial E' Peak V5.07cm/sE/Lateral E'6.3 E/Medial E'11.1 Pulmonary Valve PV Peak Dlwjnbka67.5cm/sPV Peak Grad.1mmHg Tricuspid Valve TR Peak Opxbcntg512cd/sRAP [id number] Peak Gr.61mmHg [id number] LEFT VENTRICLE The left ventricle is normal size. There is normal left ventricular wall thickness. The left ventricular function is normal. The left ventricular ejection fraction is within the normal range. Septal motion is abnormal. RIGHT VENTRICLE The right ventricle is mildly to moderately dilated. ATRIA The left atrium size is normal. The right atrium is mildly dilated. The interatrial septum is intact with no evidence for an atrial septal defect. AORTIC VALVE The aortic valve is normal in structure. MITRAL VALVE The mitral valve is normal in structure. TRICUSPID VALVE The tricuspid valve is normal in structure. There is mild tricuspid regurgitation. There is moderate-severe pulmonary hypertension. PULMONIC VALVE The pulmonary valve is normal in structure. GREAT VESSELS The aortic root is normal in size. PERICARDIAL EFFUSION There is no pericardial effusion. <Conclusion> The left ventricle is normal size. There is normal left ventricular wall thickness. The left ventricular function is normal. Septal motion is abnormal c/w RV pressure or volume overload. The right ventricle is mildly to moderately dilated. The right atrium is mildly dilated. There is mild tricuspid regurgitation. There is moderate-severe pulmonary hypertension.
[2017-08-21] MEDS: Tiotropium 18 mcg Cap For Inhalation IH SCH (10:16)
--- NOTE | 2017-08-21 12:57 | CP.PCM.PN ---
Subjective - Date & Time of Evaluation Date of Evaluation: 08/21/17 Time of Evaluation: 12:57 - Subjective Subjective: Mr. Lomeli was seen and examined at the bedside. He is alert, oriented x 3. He denies any headache, lightheadedness, blurred vision, diplopia, nausea, and vomiting. He is able to follow simple commands. He is able to ambulate in steady gait with the right side slightly weaker than the left. Echocardiogram showed moderate to severe pulmonary hypertension.There was no untoward events overnight. Objective - Vital Signs/Intake and Output Vital Signs (last 24 hours): Temp Pulse Resp BP Pulse Ox 98.1 F 70 18 177/99 H 93 L 08/21/17 12:00 08/21/17 12:00 08/21/17 12:00 08/21/17 12:00 08/21/17 06:00 Intake and Output: 08/21/17 08/21/17 06:59 18:59 Intake Total 2940 Output Total 4500 Balance -1560 - Medications Medications: Current Medications Alprazolam (Xanax) 1 mg PO BID PRN; Protocol PRN Reason: Anxiety Last Admin: 08/21/17 10:12 Dose: 1 mg Amlodipine Besylate (Norvasc) 10 mg PO DAILY [facility] Last Admin: 08/21/17 10:12 Dose: 10 mg Aspirin (Ecotrin) 81 mg PO 0800 [facility] Last Admin: 08/21/17 10:12 Dose: 81 mg Atorvastatin Calcium (Lipitor) 20 mg PO DIN [facility] Last Admin: 08/20/17 17:34 Dose: 20 mg Clonidine HCl (Catapres) 0.1 mg PO TID PRN PRN Reason: hypertension Last Admin: 08/20/17 23:54 Dose: 0.1 mg Gabapentin (Neurontin) 300 mg PO BID [facility] PRN Reason: Protocol Last Admin: 08/21/17 10:12 Dose: 300 mg Labetalol HCl (Trandate) 20 mg IV Q6H PRN PRN Reason: SBP>180 Lisinopril (Zestril) 20 mg PO DAILY [facility] Last Admin: 08/20/17 09:16 Dose: 20 mg Lorazepam (Ativan) 1 mg IVP Q2H PRN; Protocol PRN Reason: Agitation Last Admin: 08/18/17 07:03 Dose: 1 mg Paroxetine HCl (Paxil) 10 mg PO HS [facility] Last Admin: 08/20/17 21:16 Dose: 10 mg Quetiapine Fumarate (Seroquel) 75 mg PO HS [facility] PRN Reason: Protocol Tiotropium [place] (Spiriva) 18 mcg IH DAILY [facility] Last Admin: 08/21/17 10:16 Dose: 18 mcg - Labs Labs: 08/21/17 06:00 08/21/17 06:00 PT 15.0 SECONDS (9.4-12.5) H 08/16/17 14:41 INR 1.31 (0.93-1.08) H 08/16/17 14:41 APTT 35.4 Seconds (25.1-36.5) 08/16/17 14:41 - Constitutional Appears: No Acute Distress - Head Exam Head Exam: NORMAL INSPECTION - Neurological Exam Neurological Exam: Alert, Awake, Oriented x3 Neuro motor strength exam: Left Upper Extremity: 5, Right Upper Extremity: 4, Left Lower Extremity: 5, Right Lower Extremity: 4 Additional comments: Neurological unchanged from previous examination. Assessment and Plan (1) Syncope Assessment & Plan: Case discussed with Dr. Burnett, continue all current medical, physical, and occupational therapies. Recommend cardiology consult for the evaluation of moderate to severe pulmonary hypertension. Recommend blood pressure control. Status: Acute
--- NOTE | 2017-08-21 13:32 | CP.PCM.PN ---
<MiladyDanny - Last Filed: 08/21/17 13:28> Subjective - Date & Time of Evaluation Date of Evaluation: 08/21/17 Time of Evaluation: 09:15 - Subjective Subjective: Medicine progress note for Dr. Talbot Patient seen and examined at bedside. No acute complaints at this time, patient is less fatigued and groggy than he was over the weekend. Per chart review, patient has had a few hypertensive episodes over night. Patient is otherwise doing well, denies withdrawal symptoms. Objective - Vital Signs/Intake and Output Vital Signs (last 24 hours): Temp Pulse Resp BP Pulse Ox 98.1 F 70 18 177/99 H 93 L 08/21/17 12:00 08/21/17 12:00 08/21/17 12:00 08/21/17 12:00 08/21/17 06:00 Intake and Output: 08/21/17 08/21/17 06:59 18:59 Intake Total 2940 Output Total 4500 Balance -1560 - Medications Medications: Current Medications Alprazolam (Xanax) 1 mg PO BID PRN; Protocol PRN Reason: Anxiety Last Admin: 08/21/17 10:12 Dose: 1 mg Amlodipine Besylate (Norvasc) 10 mg PO DAILY [facility] Last Admin: 08/21/17 10:12 Dose: 10 mg Aspirin (Ecotrin) 81 mg PO 0800 [facility] Last Admin: 08/21/17 10:12 Dose: 81 mg Atorvastatin Calcium (Lipitor) 20 mg PO DIN [facility] Last Admin: 08/20/17 17:34 Dose: 20 mg Clonidine HCl (Catapres) 0.1 mg PO TID PRN PRN Reason: hypertension Last Admin: 08/20/17 23:54 Dose: 0.1 mg Gabapentin (Neurontin) 300 mg PO BID [facility] PRN Reason: Protocol Last Admin: 08/21/17 10:12 Dose: 300 mg Labetalol HCl (Trandate) 20 mg IV Q6H PRN PRN Reason: SBP>180 Lisinopril (Zestril) 20 mg PO DAILY [facility] Last Admin: 08/20/17 09:16 Dose: 20 mg Lorazepam (Ativan) 1 mg IVP Q2H PRN; Protocol PRN Reason: Agitation Last Admin: 08/18/17 07:03 Dose: 1 mg Paroxetine HCl (Paxil) 10 mg PO HS [facility] Last Admin: 08/20/17 21:16 Dose: 10 mg Quetiapine Fumarate (Seroquel) 75 mg PO HS [facility] PRN Reason: Protocol Tiotropium [place] (Spiriva) 18 mcg IH DAILY [facility] Last Admin: 08/21/17 10:16 Dose: 18 mcg - Labs Labs: 08/21/17 06:00 08/21/17 06:00 PT 15.0 SECONDS (9.4-12.5) H 08/16/17 14:41 INR 1.31 (0.93-1.08) H 08/16/17 14:41 APTT 35.4 Seconds (25.1-36.5) 08/16/17 14:41 - Constitutional Appears: Well - Head Exam Head Exam: ATRAUMATIC, NORMAL INSPECTION, NORMOCEPHALIC - Eye Exam Eye Exam: EOMI, Normal appearance, PERRL Pupil Exam: NORMAL ACCOMODATION, PERRL - ENT Exam ENT Exam: Mucous Membranes Moist, Normal Exam - Neck Exam Neck Exam: Full ROM, Normal Inspection. absent: Lymphadenopathy - Respiratory Exam Respiratory Exam: Clear to Ausculation Bilateral, NORMAL BREATHING PATTERN - Cardiovascular Exam Cardiovascular Exam: REGULAR RHYTHM, +S1, +S2. absent: Murmur - GI/Abdominal Exam GI & Abdominal Exam: Soft, Normal Bowel Sounds. absent: Tenderness - Extremities Exam Extremities Exam: Full ROM, Normal Capillary Refill, Normal Inspection. absent : Joint Swelling, Pedal Edema - Back Exam Back Exam: NORMAL INSPECTION - Neurological Exam Neurological Exam: Alert, Awake, CN II-XII Intact, Normal Gait, Oriented x3 - Psychiatric Exam Psychiatric exam: Normal Affect, Normal Mood - Skin Skin Exam: Dry, Intact, Normal Color, Warm Assessment and Plan - Assessment and Plan (Free Text) Assessment: 57 year old male with a past medical history of hypertension, COPD, HCV, heroin snorting and tobacco smoking and a CVA with right sided residual weakness who presents for a syncopal episode. Plan: Syncope - CT head negative for acute infarct, but does demonstrate old left lacunar infarcts - CTA head and neck: no acute process - CT Cervical spine: No acute findings - Consult neurology: Dr. Burnett Patient should follow up as an outpatient - ECHO shows normal EF - Swallow and speech evaluation: passed - PT evaulation: Patient safe for discharge home - Telemetry: discontinued Hypertension - Amlodipine 10 mg - restarted - Lisinopril 20 mg - still held, continue tomorrow - Labetalol 20 - restarted - Patient started on .1 clonidine TID Heroin Abuse - Discussed use of Methadone with patient; Methadone 10 given 08/19 (20 day 1, 15 day 2, 10 day 3) - Psych on board for cessation History of CVA - Aspirin 81 mg - Lipitor 40 mg COPD - Tiotropium 18 mch INH Affective disorder - Seroquel 100 mg HS - on hold 07/07 patient being groggy and hypotensive - Xanax 1 mg TID PRN for anxiety Suicidal Ideations - Psych consult: Dr. Peguero Per Dr. Guo, patient should be kept for the weekend, may be taken to Psych tomorrow. Depends on bed availability - 1:1 discontinued - Patient will be transferred to psychiatry DVT - SCD Dispo: At this time, patient stable from a medicine standpoint. Awaiting a bed in psychiatry unit. Will continue to monitor blood pressure today <Breanna Talbot - Last Filed: 08/21/17 15:55> Objective - Vital Signs/Intake and Output Vital Signs (last 24 hours): Temp Pulse Resp BP Pulse Ox 98.1 F 77 18 141/82 93 L 08/21/17 12:00 08/21/17 13:45 08/21/17 12:00 08/21/17 15:35 08/21/17 06:00 Intake and Output: 08/21/17 08/21/17 06:59 18:59 Intake Total 2940 540 Output Total 4500 Balance -1560 540 - Medications Medications: Current Medications Alprazolam (Xanax) 1 mg PO BID PRN; Protocol PRN Reason: Anxiety Last Admin: 08/21/17 10:12 Dose: 1 mg Amlodipine Besylate (Norvasc) 10 mg PO DAILY [facility] Last Admin: 08/21/17 10:12 Dose: 10 mg Aspirin (Ecotrin) 81 mg PO 0800 [facility] Last Admin: 08/21/17 10:12 Dose: 81 mg Atorvastatin [place] (Lipitor) 20 mg PO DIN [facility] Last Admin: 08/20/17 17:34 Dose: 20 mg Clonidine HCl (Catapres) 0.1 mg PO TID PRN PRN Reason: hypertension Last Admin: 08/20/17 23:54 Dose: 0.1 mg Gabapentin (Neurontin) 300 mg PO BID [facility] PRN Reason: Protocol Last Admin: 08/21/17 10:12 Dose: 300 mg Labetalol HCl (Trandate) 20 mg IV Q6H PRN PRN Reason: SBP>180 Last Admin: 08/21/17 13:45 Dose: 20 mg Lisinopril (Zestril) 20 mg PO DAILY [facility] Last Admin: 08/20/17 09:16 Dose: 20 mg Lorazepam (Ativan) 1 mg IVP Q2H PRN; Protocol PRN Reason: Agitation Last Admin: 08/18/17 07:03 Dose: 1 mg Paroxetine HCl (Paxil) 10 mg PO HS [facility] Last Admin: 08/20/17 21:16 Dose: 10 mg Quetiapine Fumarate (Seroquel) 75 mg PO HS [facility] PRN Reason: Protocol Tiotropium [place] (Spiriva) 18 mcg IH DAILY [facility] Last Admin: 08/21/17 10:16 Dose: 18 mcg - Labs Labs: 08/21/17 06:00 08/21/17 06:00 PT 15.0 SECONDS (9.4-12.5) H 08/16/17 14:41 INR 1.31 (0.93-1.08) H 08/16/17 14:41 APTT 35.4 Seconds (25.1-36.5) 08/16/17 14:41 Attending/Attestation - Attestation I have personally seen and examined this patient.: Yes I have fully participated in the care of the patient.: Yes I have reviewed all pertinent clinical information, including history, physical exam and plan: Yes Notes (Text): 08/21/17 15:53 attending note; Patient seen and examined with resident. Patient is a 57 year old male with history of hypertension, COPD, HCV (known and untreated), heroin abuse, tobacco use and CVA with right sided residual weakness who was brought by the son for evaluation of syncope. Patient denies any presyncopal and postictal confusion. CT revealed old lacunar infact. CTA unremarkable. MRI of the brain showed old lacunar infarct. No acute stroke. Blood pressure is elevated today. Started back on Norvasc and clonidine. creatinine improved from 2.6 to 1.1. Will continue aspirin, lipitor. neurology evaluation appreciated. Patient also has been having heroin withdrawal.improved significantly. Patient also expressed suicidal ideation. Psychiatric evaluation appreciated. Possible transfer to psychiatric floor tomorrow once bed available. Tobacco and substance abuse counselling provided. Upon discharge patient will follow up with Dr. Baxter. 08/21/17 15:54
--- NOTE | 2017-08-21 15:59 | CP.PCM.PCO ---
Addendum Addendum: 08/21/17 15:58 due to high volume pt's load, will f/u on pt tomorrow, BP was elevated, possible transfer to the psych unit am. discussed with .
[2017-08-22 07:28] LABS: BASO # 0.01 K/mm3 (0.0-2.0); BASO % 0.1 % (0.0-3.0); EOS # 0.3 (0.0-0.7); EOS % 2.8 % (1.5-5.0); GRAN # 6.8 (1.4-6.5); GRAN % 65.7 % (50.0-68.0); HEMOGLOBIN 15.3 g/dL (14.0-18.0); LYMPH # 2.3 (1.2-3.4); LYMPH % 22.3 % (22.0-35.0); MEAN CORPUSCULAR HEMOGLOBIN 29.8 pg (25.0-35.0); MEAN CORPUSCULAR HGB CONC 35.4 g/dl (31.0-37.0); MEAN PLATELET VOLUME 10.6 fl (7.0-11.0); MONO # 0.9 (0.1-0.6); MONO % 9.1 % (1.0-6.0); RBC 5.14 10^6/uL (3.5-6.1); RED CELL DISTRIBUTION WIDTH 14.7 % (11.5-14.5); WHITE BLOOD COUNT 10.4 10^3/ul (4.5-11.0)
[2017-08-22 08:01] LABS: ALBUMIN 4.1 g/dL (3.0-4.8); ALT/SGPT 35 U/L (7-56); AST/SGOT 37 U/L (17-59); BLOOD UREA NITROGEN 19 mg/dL (7-21); GFR AFRICAN-AMERICAN > 60; GFR NON-AFRICAN AMERICAN > 60
[2017-08-22] MEDS ORDERED: Potassium Chloride 20 mEq ER Tab PO ONE (08:37)
[2017-08-22 13:47] VITALS: RESP 20; TEMP 97.8; O2SAT 94
[2017-08-22 15:20] VITALS: BP 131/91
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
[2017-08-22] MEDS: Tiotropium 18 mcg Cap For Inhalation IH SCH (17:11)
[2017-08-22 17:18] VITALS: PULSE 63
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
== END 2017-08-22 18:48 | DRG 744 ==
LOC: ED 13:31 → ERH 17:01 → 3RSO 19:06 → 5RSO 08-21 21:06
PROVIDERS: ADMIT Hospitalist; ATTEND Internal Medicine
DX: F11.23 Opioid dependence with withdrawal (principal); F11.24 Opioid dependence with opioid-induced mood disorder; B19.20 Unspecified viral hepatitis C without hepatic coma; I27.20 Pulmonary hypertension, unspecified; R45.851 Suicidal ideations; J44.9 Chronic obstructive pulmonary disease, unspecified; I69.351 Hemiplegia and hemiparesis following cerebral infarction affecting right dominant side; I10 Essential (primary) hypertension; F41.9 Anxiety disorder, unspecified; G47.00 Insomnia, unspecified; F17.210 Nicotine dependence, cigarettes, uncomplicated; Z91.14 Patient's other noncompliance with medication regimen

== ENCOUNTER 2017-08-22 18:20 | Inpatient (IN) | payer MEDICAID ==
[2017-08-22 22:27] VITALS: BMI 37.0
[2017-08-23] MEDS ORDERED: Alum-Mag Hydrox-Simethicone Susp (30 mL) PO PRN (02:06)
[2017-08-23] MEDS ORDERED: Magnesium Hydroxide Susp 30 ml UD PO PRN (02:06)
--- NOTE | 2017-08-23 02:40 | PCM.BM ---
<DaveBlaze - Last Filed: 08/23/17 02:37> Treatment Plan Problems - Problems identified on initial assessmt Ineffective Coping Date Initiated: 08/22/17 Time Initiated: 19:00 Assessment reference: NA Status: Active Priority: 1 Hopelessness/Helplessness Date Initiated: 08/22/17 Time Initiated: 19:00 Assessment reference: NA Status: Active Priority: 2 Feelings of Worthlessness Date Initiated: 08/22/17 Time Initiated: 19:00 Assessment reference: NA Status: Active Priority: 3 Altered Sleep Patterns Date Initiated: 08/22/17 Time Initiated: 19:00 Assessment reference: NA Status: Active Priority: 4 Treatment assets and liabiliti Patient Assests: cooperative, motivated, ADL independent, good support system, negotiates basic needs, cognitively intact, good interpersonal skills Patient Liabilities: financial problems, substance abuse - Milieu Protocol Maintain good personal hygiene: daily Encourage regular showers, every shift Remind patient to perform daily oral care, every shift Assist patient to perform ADL's Maintain personal safety: every shift Educate patient to report safety concerns to staff, every shift Monitor environment for contraband/sharps Medication safety: Monitor for expected outcome, potential side effects: every shift, Assess barriers to learning: every shift, Assess readiness for medication education: every shift Family Contact Family involvement: Family/SO is involved Family contact: Patient agrees to contact - Goals for Treatment Patient goals for treatment: stop using drugs Discharge/Continuing Care - Education Needs Education Needs: Patient Medication, Patient Diagnosis/Disease Process, Patient Coping Skills, Patient Anger Management skills, Patient Placement options, Patient Community resources, Patient Activities of Daily Living, Patient Pain, Patient Nutrition, Patient Uses of Medical Equipment, Patient Health Practices/ Safety, Patient Personal Hygiene/Grooming, Patient Aftercare Safety Plan, Patient Other - Discharge Discharge Criteria: Tolerates medication w/o severe side effects, Normal sleep pattern, No longer exhibiting s/s of withdrawal <Marielena Campos - Last Filed: 08/23/17 08:16> - Diagnosis (1) MDD (major depressive disorder) Status: Acute Interventions: 08/23/17 08:16 Psychoeducation Psychopharmacology/adjustment of medications as needed/ monitoring possible side effects Evaluate pt on daily basis Compliance with medications and follow up appointments Suicide and homicide risk assessment and prevention Relapse prevention Reduction of symptoms Improve functional status Family involvement As outpatient: cognitive behavioral therapy (2) Opiate dependence Status: Acute Interventions: 08/23/17 08:17 Monitoring withdrawal symptoms Medical detoxification Pharmacotherapy for alcohol/benzos/opioid dependence Maintaining sobriety Relapse prevention Possible rehabilitation Motivational interviewing 12-step programs: AA meetings <Yecenia Leal - Last Filed: 08/23/17 15:21> Family Contact - Goals for Treatment Patient goals for treatment: "I want to go to rehab."
[2017-08-23 08:14] LABS: GLUCOSE,FASTING 98 mg/dL (65-110); HDL CHOLESTEROL 43 mg/dL (29-60)
[2017-08-23 08:24] LABS: LDL CHOLESTEROL 59 mg/dL (0-129)
[2017-08-23] MEDS: Tiotropium 18 mcg Cap For Inhalation IH SCH (10:19)
--- NOTE | 2017-08-23 11:48 | CP.PCM.CON ---
<Danny Henning - Last Filed: 08/23/17 11:43> History of Present Illness - History of Present Illness History of Present Illness: Medicine consult note for Dr. Dahiana Henning DO PGY - 1 Reason for consult: Medical management of hypertension HPI: [age] year old male with a past medical history of hypertension, COPD, HCV, heroin snorting and tobacco smoking and a CVA with right sided residual weakness presented to [facility] on 08/16 for a syncopal episode. Patient was seen by the medical team and was treated for potential CVA (which was ruled out) as well as refractory hypertension and heroin withdrawal (with methadone). Patient was stabilized medically and was transferred to psychiatry We have been consulted by psychiatry to manage patient's medical issues. Patient denies any symptoms on interview, and states that he has been feeling fine since leaving the medical jorge. PMD: Dr. Baxter Medical History: Hypertension, CVA, HCV, heroin abuse Surgical History: Denies Allergies: Penicillin Family History: Non-contributory Medications: Reviewed Social: Admits to tobacco use, alcohol use, and heroin use - snorts, did use IV in the past ROS: 12 point review of systems conducted and negative except per HPI Past Patient History - Infectious Disease Hx of Infectious Diseases: None - Past Medical History & Family History Past Medical History?: Yes - Past Social History Smoking Status: Light Smoker < 10 Cigarettes Daily - CARDIAC Hx Hypertension: Yes - PULMONARY Hx Chronic Obstructive Pulmonary Disease (COPD): Yes Hx Emphysema: Yes - NEUROLOGICAL HX Cerebrovascular Accident: Yes Hx Seizures: No - HEENT Hx HEENT Problems: No - RENAL Hx Chronic Kidney Disease: No - ENDOCRINE/METABOLIC Hx Endocrine Disorders: No - HEMATOLOGICAL/ONCOLOGICAL Hx Cancer: No - INTEGUMENTARY Hx Dermatological Problems: No - MUSCULOSKELETAL/RHEUMATOLOGICAL Hx Musculoskeletal Disorders: Yes Hx Back Pain: Yes Hx Falls: No - GASTROINTESTINAL Hx Gastrointestinal Disorders: No - GENITOURINARY/GYNECOLOGICAL Hx Sexually Transmitted Disorders: No - PSYCHIATRIC Hx Physical Abuse: No Hx Sexual Abuse: No Hx Substance Use: Yes - SURGICAL HISTORY Hx Cardiac Catheterization: Yes - ANESTHESIA Hx Anesthesia: No Meds Allergies/Adverse Reactions: Allergies Allergy/AdvReac Type Severity Reaction Status Date / Time Penicillins Allergy RASH Verified 08/22/17 22:28 - Medications Medications: Current Medications Acetaminophen (Tylenol 325mg Tab) 650 mg PO Q6H PRN PRN Reason: Pain, moderate (4-7) Al Hydrox/Mg Hydrox/Simethicone (Maalox Plus 30 Ml) 30 ml PO DAILY PRN PRN Reason: Indigestion / Heartburn Alprazolam (Xanax) 1 mg PO BID PRN; Protocol PRN Reason: Anxiety Amlodipine Besylate (Norvasc) 10 mg PO DAILY [facility] Last Admin: 08/23/17 10:16 Dose: 10 mg Aspirin (Ecotrin) 81 mg PO DAILY [facility] Last Admin: 08/23/17 10:20 Dose: 81 mg Atorvastatin Calcium (Lipitor) 20 mg PO DIN [facility] Clonidine HCl (Catapres) 0.1 mg PO TID [facility] Last Admin: 08/23/17 10:19 Dose: 0.1 mg Famotidine (Pepcid) 20 mg PO 1000,2200 [facility] Last Admin: 08/23/17 10:20 Dose: 20 mg Gabapentin (Neurontin) 300 mg PO BID [facility] PRN Reason: Protocol Last Admin: 08/23/17 10:20 Dose: 300 mg Labetalol HCl (Trandate) 100 mg PO BID [facility] Last Admin: 08/23/17 10:18 Dose: 100 mg Lisinopril (Zestril) 20 mg PO DAILY [facility] Last Admin: 08/23/17 10:17 Dose: 20 mg Magnesium Hydroxide (Milk Of Magnesia) 30 ml PO DAILY PRN PRN Reason: Constipation Mirtazapine (Remeron) 15 mg PO HS PRN PRN Reason: Insomnia Paroxetine HCl (Paxil) 10 mg PO HS [facility] Last Admin: 08/22/17 22:59 Dose: 10 mg Quetiapine Fumarate (Seroquel) 75 mg PO HS [facility] PRN Reason: Protocol Last Admin: 08/22/17 22:59 Dose: 75 mg Tiotropium Lug[place] (Spiriva) 18 mcg IH DAILY [facility] Last Admin: 08/23/17 10:19 Dose: 18 mcg Ziprasidone (Geodon Cap) 20 mg PO Q8H PRN; Protocol PRN Reason: Agitation Ziprasidone (Geodon Inj) 10 mg IM Q8H PRN; Protocol PRN Reason: Severe Agitation Physical Exam - Constitutional Appears: Well - Head Exam Head Exam: ATRAUMATIC, NORMAL INSPECTION, NORMOCEPHALIC - Eye Exam Eye Exam: EOMI, Normal appearance, PERRL Pupil Exam: NORMAL ACCOMODATION, PERRL - ENT Exam ENT Exam: Mucous Membranes Moist, Normal Exam - Neck Exam Neck exam: Positive for: Normal Inspection - Respiratory Exam Respiratory Exam: Clear to Auscultation Bilateral, NORMAL BREATHING PATTERN - Cardiovascular Exam Cardiovascular Exam: REGULAR RHYTHM - GI/Abdominal Exam GI & Abdominal Exam: Normal Bowel Sounds, Soft. absent: Tenderness - Extremities Exam Extremities exam: Positive for: normal inspection - Back Exam Back exam: NORMAL INSPECTION - Neurological Exam Neurological exam: Alert, CN II-XII Intact, Normal Gait, Oriented x3, Reflexes Normal - Psychiatric Exam Psychiatric exam: Normal Affect, Normal Mood - Skin Skin Exam: Dry, Intact, Normal Color, Warm Results - Vital Signs Recent Vital Signs: Last Vital Signs Temp 97.9 F 08/23/17 07:36 Pulse 56 L 08/23/17 10:19 Resp 20 08/23/17 07:36 BP 143/76 08/23/17 10:19 Pulse Ox 98 08/22/17 19:01 - Labs Labs: Laboratory Results - last 24 hr 08/23/17 08/23/17 07:30 07:30 Fasting Glucose 98 Triglycerides 71 Cholesterol 119 L LDL Cholesterol Direct 59 HDL Cholesterol 43 TSH 3rd Generation 0.10 L Assessment & Plan - Assessment and Plan (Free Text) Assessment: 57 year old male with a past medical history of hypertension, COPD, HCV, heroin snorting and tobacco smoking and a CVA with right sided residual weakness who presented for a syncopal episode, was treated and stabilized medically, then transferred to psych. We are now consulted for management of hypertension. Plan: Hypertension - Patient at baseline blood pressure right now - Amlodipine 10 mg - Continue - Lisinopril 20 mg - Continue - Labetalol 20 - Continue - Clonidine .1 TID - Continue COPD - Tiotropium 18 mch INH History of CVA - Aspirin 81 mg - Lipitor 40 mg Heroin Abuse - Per psychiatry - Advised cessation Affective disorder - Per psychiatry DVT and GI Prophylaxis - No necessity patient ambulating - Pepcid for GI <Breanna Talbot - Last Filed: 08/24/17 13:59> Meds - Medications Medications: Current Medications Acetaminophen (Tylenol 325mg Tab) 650 mg PO Q6H PRN PRN Reason: Pain, moderate (4-7) Al Hydrox/Mg Hydrox/Simethicone (Maalox Plus 30 Ml) 30 ml PO DAILY PRN PRN Reason: Indigestion / Heartburn Amlodipine Besylate (Norvasc) 10 mg PO DAILY [facility] Last Admin: 08/24/17 10:34 Dose: 10 mg Aspirin (Ecotrin) 81 mg PO DAILY [facility] Last Admin: 08/24/17 10:36 Dose: 81 mg Atorvastatin Calcium (Lipitor) 20 mg PO DIN [facility] Last Admin: 08/23/17 17:16 Dose: 20 mg Clonidine HCl (Catapres) 0.1 mg PO TID [facility] Last Admin: 08/24/17 10:35 Dose: 0.1 mg Famotidine (Pepcid) 20 mg PO 1000,2200 [facility] Last Admin: 08/24/17 10:35 Dose: 20 mg Gabapentin (Neurontin) 600 mg PO TID [facility] PRN Reason: Protocol Hydroxyzine Pamoate (Vistaril) 50 mg PO QID PRN; Protocol PRN Reason: Anxiety Labetalol HCl (Trandate) 100 mg PO BID [facility] Last Admin: 08/24/17 10:35 Dose: 100 mg Lisinopril (Zestril) 20 mg PO DAILY [facility] Last Admin: 08/23/17 10:17 Dose: 20 mg Magnesium Hydroxide (Milk Of Magnesia) 30 ml PO DAILY PRN PRN Reason: Constipation Mirtazapine (Remeron) 30 mg PO HS PRN PRN Reason: Insomnia Paroxetine HCl (Paxil) 20 mg PO HS [facility] Quetiapine Fumarate (Seroquel) 100 mg PO HS [facility] Tiotropium Lugoff (Spiriva) 18 mcg IH DAILY [facility] Last Admin: 08/23/17 10:19 Dose: 18 mcg Ziprasidone (Geodon Cap) 20 mg PO Q8H PRN; Protocol PRN Reason: Agitation Ziprasidone (Geodon Inj) 10 mg IM Q8H PRN; Protocol PRN Reason: Severe Agitation Results - Vital Signs Recent Vital Signs: Last Vital Signs Temp 97.5 F L 08/24/17 07:33 Pulse 64 08/24/17 07:33 Resp 20 08/24/17 07:33 BP 151/86 H 08/24/17 10:34 Pulse Ox 98 08/22/17 19:01 - Labs Labs: Laboratory Results - last 24 hr 08/23/17 08:00 RPR Nonreactive Attending/Attestation - Attestation I have personally seen and examined this patient.: Yes I have fully participated in the care of the patient.: Yes I have reviewed all pertinent clinical information: Yes Notes (Text): 08/24/17 13:32 attending note; Patient seen and examined with resident in psychiatry floor. Patient was transferred to yesterday from medical floor. Patient is a 57 year old male with history of hypertension, COPD, HCV (known and untreated), heroin abuse, tobacco use and CVA with right sided residual weakness who was brought by the son for evaluation of syncope. Mostly secondary to drug abuse. CT revealed old lacunar infact. CTA unremarkable. MRI of the brain showed old lacunar infarct. No acute stroke. Blood pressure is better controlled. Continue Norvasc, labetalol, clonidine, lisinopril. Acute renal insufficiency resolved. Will continue aspirin, lipitor. neurology evaluation appreciated. Patient also had heroin withdrawal initially. Treated with methadone. Currently no withdrawal symptoms. Continue management per psychiatrist. Tobacco and substance abuse counselling provided. Upon discharge patient will follow up with Dr. Baxter.
--- NOTE | 2017-08-23 14:43 | PCM.PSYCH ---
Initial Psychiatric Evaluation - Initial Psychiatric Evaluation Type of Admission: Voluntary Legal Status: Capacity (pt has a capacity to sign consent for treatment) Chief Complaint (in patient's own words): "there is no fixing what I got...I need to find a comfortable spot some place, I did not expect to live so long" Patient's Reaction to Hospitalization: pt was transferred from the medical floor where he was admitted s/p fall and some weakness r/o CVA, pt was found to be depressed, hopeless, unable to function. 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 pt was transferred from medical side for evaluation of depression, hopelessness, med management. Patient was seen and examined today at the treatment team meeting with social media content specialist, recreational therapist, nurse. Patient presented to have acceptable personal hygiene but seems to be careless about his appearance, patient also had acceptable ADLs. Patient reported that that she was feeling depressed because he has no job, he has a lot of free time, patient reported that he was using heroin in snorting, patient has history or being on heroine IV drug use for more than 25 years, patient reported that his veins are collapsed and now he can only snort heroine. Patient has multiple rehabs, detoxes in the past, the longest period of sobriety is 8 years while he was incarcerated. patient reported that he was feeling depressed, hopeless, helpless, feeling that he is a burden for his son, patient reported that she was using drugs more frequently, during the interview patient denied any withdrawal symptoms. Patient reported that he had difficulties to fall and stay asleep. Treatment goals: "there is no fixing what I got...I need to find a comfortable spot some place." pt willing to go to inpatient rehab. pt reported to smoke about 3cigarettes a day, refused nicotine patch, counseling provided. pt denied hearing voices, denied seeing things, denied paranoid ideation. History of multiple arrests, incarcerations, history of being witness of violence in the community. denied PTSD. past psychiatric history: patient denied history of being admitted to psychiatric inpatient units, denied history of suicidal attempts. Family history: Patient denied family history of mental illness, but history or substance abuse as well as incarcerations. Medical issues: CVA with residual weakness on the right side, chronic back pain, obesity, hypertension. 08/23/17 08/23/17 07:30 07:30 Fasting Glucose 98 Triglycerides 71 Cholesterol 119 L LDL Cholesterol Direct 59 HDL Cholesterol 43 TSH 3rd Generation 0.10 L Vital Signs Temp Pulse Pulse Resp BP Pulse Ox 08/23/17 10:19 56 L 143/76 08/23/17 10:18 53 L 143/76 08/23/17 10:17 56 L 143/76 08/23/17 10:16 143/76 08/23/17 07:36 97.9 F 56 L 20 143/76 08/22/17 20:00 67 20 08/22/17 19:01 98.2 F 57 L 16 124/81 98 Current Medications: Active Medications Generic Name Dose Route Start Last Admin Trade Name Freq PRN Reason Stop Dose Admin Acetaminophen 650 mg 08/23/17 02:06 Tylenol 325mg Tab PO Q6H PRN Pain, moderate (4-7) Al Hydrox/Mg Hydrox/Simethicone 30 ml 08/23/17 02:06 Maalox Plus 30 Ml PO DAILY PRN Indigestion / Heartburn Alprazolam 1 mg 08/22/17 22:47 Xanax PO BID PRN Anxiety Protocol Amlodipine Besylate 10 mg 08/23/17 08:00 Norvasc PO DAILY [facility] Aspirin 81 mg 08/23/17 08:00 Ecotrin PO DAILY [facility] Atorvastatin Calcium 20 mg 08/23/17 17:00 Lipitor PO DIN [facility] Clonidine HCl 0.1 mg 08/23/17 08:00 Catapres PO TID [facility] Famotidine 20 mg 08/22/17 22:45 08/22/17 22:59 Pepcid PO 20 mg 1000,2200 [facility] Administration Gabapentin 300 mg 08/23/17 08:00 Neurontin PO BID [facility] Protocol Labetalol HCl 100 mg 08/23/17 08:00 Trandate PO BID [facility] Lisinopril 20 mg 08/23/17 08:00 Zestril PO DAILY [facility] Magnesium Hydroxide 30 ml 08/23/17 02:06 Milk Of Magnesia PO DAILY PRN Constipation Mirtazapine 15 mg 08/22/17 22:44 Remeron PO HS PRN Insomnia Paroxetine HCl 10 mg 08/22/17 22:45 08/22/17 22:59 Paxil PO 10 mg HS [facility] Administration Quetiapine Fumarate 75 mg 08/22/17 22:45 08/22/17 22:59 Seroquel PO 75 mg HS [facility] Administration Protocol Tiotropium Aurora 18 mcg 08/23/17 08:00 Spiriva IH DAILY [facility] Ziprasidone 20 mg 08/23/17 02:16 Geodon Cap PO Q8H PRN Agitation Protocol Ziprasidone 10 mg 08/23/17 02:16 Geodon Inj IM Q8H PRN Severe Agitation Protocol Past Psychiatric History - Past Psychiatric History Previous Treatment History: None Prior Professional Help: see HPI Prior Psychiatric Treatment: see HPI At what hospital: see HPI Duration: see HPI Nature of Treatment: see HPI Explanation of prior treatment: see HPI History of Abuse: see HPI History of ETOH/Drug Use: see HPI History of Family Illness: see HPI Pertinent Medical Hx (Current Medical&Sleep Prob, Allergies): Allergies Allergy/AdvReac Type Severity Reaction Status Date / Time Penicillins Allergy RASH Verified 08/22/17 22:28 Tiotropium [Spiriva] 18 mcg IH DAILY 05/24/17 Gabapentin [Neurontin] 300 mg PO BID #60 cap 05/30/17 Lisinopril [Zestril] 10 mg PO DAILY #30 tab 05/30/17 QUEtiapine [Seroquel] 100 mg PO HS #30 tab 05/30/17 amLODIPine [Norvasc] 10 mg PO DAILY #30 tab 05/30/17 ALPRAZolam [Xanax] 1 tab PO TID PRN 08/16/17 Atorvastatin [Lipitor] 1 tab PO DAILY 08/16/17 Labetalol [Trandate] 100 mg PO BID tab 08/22/17 Lisinopril [Zestril] 20 mg PO DAILY tab 08/22/17 cloNIDine [Catapres] 0.1 mg PO TID tab 08/22/17 Mental Status Examination - Personal Presentation Personal Presentation: Looks older than stated age - Affect Affect: Flat - Motor Activity Motor Activity: Calm - Reliability in Providing Information Reliability in Providing Information: Fair - Speech Speech: Organized - Mood Mood: Depressed, Anxious - Formal Thought Process Formal Thought Process: No Impairment - Cognitive Functions Orientation: Person, Place, Situation, Time Sensorium: Alert Attention/Concentration: Easily distracted Abstract Thinking: [place] Estimate of Intelligence: Average Judgement: Intact, as evidence by: Insight regarding need for hospitalization - Risk Risk: Self-mutilation, Diminished functioning - Strength & Assets Inventory Strength & Assets Inventory: Intelligence, Family support, Employment history, Skills, Cooperative - Limitations Limitations: Other (multiple medical issues, substance abuse history) DSM 5 DX - DSM 5 DSM 5 Diagnosis: rule out major depressive disorder Rule out substance induced mood disorder Opioid use disorder with addiction - Recommended/Plan of Treatment Treatment Recommendations and Plan of Treatment: milieu, structure, supportive therapy Gabapentin [Neurontin] 300 mg PO 3 times a day for withdrawals as well as mood stabilization Lisinopril [Zestril] 10 mg PO DAILY will be continued QUEtiapine [Seroquel] 75 mg at the nighttime from mood stabilization Paxil at the nighttime for depression as well as anxiety Remeron 50 mg at the nighttime as needed for insomnia Vistaril as needed for anxiety Tiotropium [Spiriva] 18 mcg IH DAILY will be continued amLODIPine [Norvasc] 10 mg PO DAILY will be continued no benzodiazepines required Atorvastatin [Lipitor] 1 tab PO DAILY will be continued Labetalol [Trandate] 100 mg PO BID will be continued Lisinopril [Zestril] 20 mg PO DAILY will be continued cloNIDine [Catapres] 0.1 mg PO TID will be continued Milieu/structure/supportive therapy Medical consult appreciated, see medical team note for more detailed info SW consultation for discharge plan and social issues Family involvement Follow up on labs Will monitor closely Pt was educated about risk/benefits and alternatives of medications, coping strategies (safety plan, suicide prevention), relapse prevention, importance of follow up with psychiatrist and therapist, stay away from drugs/alcohol/smoking Projected ELOS: 7days Prognosis: guarded Discharge Plan and Discharge Criteria: Pt will be not depressed or manic, will be more hopeful, will be not psychotic or anxious, will be not having thoughts of harming self or others, will be tolerating medications well, will not have major side effects, will be able to function, will not pose threat to self or others. - Smoking Cessation Smoking Cessation Initiated: Yes
--- NOTE | 2017-08-24 11:26 | CP.PCM.PN ---
<MiladyDanny Mak - Last Filed: 08/24/17 11:22> Subjective - Date & Time of Evaluation Date of Evaluation: 08/24/17 Time of Evaluation: 11:22 - Subjective Subjective: Medicine progress note: Dr. Talbot Patient seen and examined at bedside. Patient denies any new complaints. States that he is feeling better emotionally as well. Objective - Vital Signs/Intake and Output Vital Signs (last 24 hours): Temp Pulse Resp BP Pulse Ox 97.5 F L 64 20 151/86 H 98 08/24/17 07:33 08/24/17 07:33 08/24/17 07:33 08/24/17 10:34 08/22/17 19:01 - Medications Medications: Current Medications Acetaminophen (Tylenol 325mg Tab) 650 mg PO Q6H PRN PRN Reason: Pain, moderate (4-7) Al Hydrox/Mg Hydrox/Simethicone (Maalox Plus 30 Ml) 30 ml PO DAILY PRN PRN Reason: Indigestion / Heartburn Alprazolam (Xanax) 1 mg PO BID PRN; Protocol PRN Reason: Anxiety Amlodipine Besylate (Norvasc) [address] [facility] Last Admin: 08/24/17 10:34 Dose: 10 mg Aspirin (Ecotrin) [address] [facility] Last Admin: 08/24/17 10:36 Dose: 81 mg Atorvastatin Calcium (Lipitor) [address] [facility] Last Admin: 08/23/17 17:16 Dose: 20 mg Clonidine HCl (Catapres) 0.[address] [facility] Last Admin: 08/24/17 10:35 Dose: 0.1 mg Famotidine (Pepcid) 20 mg PO 1000,2200 [facility] Last Admin: 08/24/17 10:35 Dose: 20 mg Gabapentin (Neurontin) [address] [facility] PRN Reason: Protocol Last Admin: 08/24/17 10:35 Dose: 300 mg Hydroxyzine Pamoate (Vistaril) 50 mg PO QID PRN; Protocol PRN Reason: Anxiety Labetalol HCl (Trandate) [address] [facility] Last Admin: 08/24/17 10:35 Dose: 100 mg Lisinopril (Zestril) [address] [facility] Last Admin: 08/23/17 10:17 Dose: 20 mg Magnesium Hydroxide (Milk Of Magnesia) 30 ml PO DAILY PRN PRN Reason: Constipation Mirtazapine (Remeron) 15 mg PO HS PRN PRN Reason: Insomnia Paroxetine HCl (Paxil) [address] [facility] Last Admin: 08/23/17 22:29 Dose: 10 mg Quetiapine Fumarate (Seroquel) [address] [facility] PRN Reason: Protocol Last Admin: 08/23/17 22:29 Dose: 75 mg Tiotropium Bent[place] (Spiriva) [address] [facility] Last Admin: 08/23/17 10:19 Dose: 18 mcg Ziprasidone (Geodon Cap) 20 mg PO Q8H PRN; Protocol PRN Reason: Agitation Ziprasidone (Geodon Inj) 10 mg IM Q8H PRN; Protocol PRN Reason: Severe Agitation - Constitutional Appears: Well - Head Exam Head Exam: ATRAUMATIC, NORMAL INSPECTION, NORMOCEPHALIC - Eye Exam Eye Exam: EOMI, Normal appearance, PERRL Pupil Exam: NORMAL ACCOMODATION, PERRL - ENT Exam ENT Exam: Mucous Membranes Moist, Normal Exam - Neck Exam Neck Exam: Full ROM, Normal Inspection. absent: Lymphadenopathy - Respiratory Exam Respiratory Exam: Clear to Ausculation Bilateral, NORMAL BREATHING PATTERN - Cardiovascular Exam Cardiovascular Exam: REGULAR RHYTHM, +S1, +S2. absent: Murmur - GI/Abdominal Exam GI & Abdominal Exam: Soft, Normal Bowel Sounds. absent: Tenderness - Extremities Exam Extremities Exam: Full ROM, Normal Capillary Refill, Normal Inspection. absent : Joint Swelling, Pedal Edema - Back Exam Back Exam: NORMAL INSPECTION - Neurological Exam Neurological Exam: Alert, Awake, CN II-XII Intact, Normal Gait, Oriented x3 - Psychiatric Exam Psychiatric exam: Normal Affect, Normal Mood - Skin Skin Exam: Dry, Intact, Normal Color, Warm Assessment and Plan - Assessment and Plan (Free Text) Assessment: Assessment and Plan 57 year old male with a past medical history of hypertension, COPD, HCV, heroin snorting and tobacco smoking and a CVA with right sided residual weakness who presented for a syncopal episode, was treated and stabilized medically, then transferred to psych. We are now consulted for management of hypertension. Plan: Hypertension - Patient's blood pressure well controlled right now - Amlodipine 10 mg - Continue - Lisinopril 20 mg - Continue - Labetalol 20 - Continue - Clonidine .1 TID - Continue COPD - Tiotropium 18 mch INH History of CVA - Aspirin 81 mg - Lipitor 40 mg Heroin Abuse - Per psychiatry - Advised cessation Affective disorder - Per psychiatry DVT and GI Prophylaxis - No necessity patient ambulating - Pepcid for GI Dispo: Thank you for this consult. At this point, patient is medically stable. We will continue to follow peripherally but will sign off for now. Please re- consult as necessary <Breanna Talbot - Last Filed: 08/24/17 14:01> Objective - Vital Signs/Intake and Output Vital Signs (last 24 hours): Temp Pulse Resp BP Pulse Ox 97.5 F L 64 20 151/86 H 98 08/24/17 07:33 08/24/17 13:55 08/24/17 07:33 08/24/17 13:55 08/22/17 19:01 - Medications Medications: Current Medications Acetaminophen (Tylenol 325mg Tab) 650 mg PO Q6H PRN PRN Reason: Pain, moderate (4-7) Al Hydrox/Mg Hydrox/Simethicone (Maalox Plus 30 Ml) 30 ml PO DAILY PRN PRN Reason: Indigestion / Heartburn Amlodipine Besylate (Norvasc) [address] [facility] Last Admin: 08/24/17 10:34 Dose: 10 mg Aspirin (Ecotrin) [address] [facility] Last Admin: 08/24/17 10:36 Dose: 81 mg Atorvastatin Calcium (Lipitor) [address] [facility] Last Admin: 08/23/17 17:16 Dose: 20 mg Clonidine HCl (Catapres) 0.[address] [facility] Last Admin: 08/24/17 13:55 Dose: 0.1 mg Famotidine (Pepcid) 20 mg PO 1000,2200 [facility] Last Admin: 08/24/17 10:35 Dose: 20 mg Gabapentin (Neurontin) [address] [facility] PRN Reason: Protocol Last Admin: 08/24/17 13:57 Dose: 600 mg Hydroxyzine Pamoate (Vistaril) 50 mg PO QID PRN; Protocol PRN Reason: Anxiety Labetalol HCl (Trandate) [address] [facility] Last Admin: 08/24/17 10:35 Dose: 100 mg Lisinopril (Zestril) [address] [facility] Last Admin: 08/23/17 10:17 Dose: 20 mg Magnesium Hydroxide (Milk Of Magnesia) 30 ml PO DAILY PRN PRN Reason: Constipation Mirtazapine (Remeron) 30 mg PO HS PRN PRN Reason: Insomnia Paroxetine HCl (Paxil) 20 mg PO HS [facility] Quetiapine Fumarate (Seroquel) 100 mg PO HS [facility] Tiotropium Bentley (Spiriva) [address] [facility] Last Admin: 08/23/17 10:19 Dose: 18 mcg Ziprasidone (Geodon Cap) 20 mg PO Q8H PRN; Protocol PRN Reason: Agitation Ziprasidone (Geodon Inj) 10 mg IM Q8H PRN; Protocol PRN Reason: Severe Agitation Attending/Attestation - Attestation I have personally seen and examined this patient.: Yes I have fully participated in the care of the patient.: Yes I have reviewed all pertinent clinical information, including history, physical exam and plan: Yes Notes (Text): 08/24/17 14:00 attending note; Patient seen and examined with resident in psychiatry floor. Patient is a 57 year old male with history of hypertension, COPD, HCV (known and untreated), heroin abuse, tobacco use and CVA with right sided residual weakness who was brought by the son for evaluation of syncope. Mostly secondary to drug abuse. CT revealed old lacunar infact. CTA unremarkable. MRI of the brain showed old lacunar infarct. No acute stroke. Blood pressure is better controlled. Continue Norvasc, labetalol, clonidine, lisinopril. Acute renal insufficiency resolved. Will continue aspirin, lipitor. neurology evaluation appreciated. Patient also had heroin withdrawal initially. Treated with methadone. Currently no withdrawal symptoms. Continue management per psychiatrist. Tobacco and substance abuse counselling provided. Patient is medically stable. Please reconsult as needed. Upon discharge patient will follow up with Dr. Baxter.
--- NOTE | 2017-08-24 14:08 | PCM.PYCHPN ---
Psychiatric Progress Note - Psychiatric Progress Note Patient seen today, length of contact: 30 minutes Patient Chief Complaint: "I did not expect to live so long, all of my friends are , some of them from AIDS, some of them in halfway, some of them overdosed, now I have a question why I am steel here in this planet of earth? Problems Identified/Issues Discussed: Suicide/ homicide prevention, past psychiatric h/o, current psychiatric symptoms , medical problems, risk/benefits and alternatives of medications, medications compliance, coping strategies, substance abuse h/o, relapse prevention, importance of follow up with psychiatrist and therapist, discharge plan. Medical Problems: see HPI Diagnostic Results: Lab Results 08/23/17 08:00: RPR Nonreactive 08/23/17 07:30: TSH 3rd Generation 0.10 L 08/23/17 07:30: Fasting Glucose 98, Triglycerides 71, Cholesterol 119 L, LDL Cholesterol Direct 59, HDL Cholesterol 43 Vital Signs Temp Pulse Pulse Resp BP Pulse Ox 08/24/17 13:55 64 151/86 H 08/24/17 10:34 151/86 H 08/24/17 07:33 97.5 F L 64 20 151/86 H 08/23/17 19:05 57 L 118/80 08/23/17 16:44 59 L 120/84 08/23/17 16:43 59 L 120/84 08/23/17 10:19 56 L 143/76 08/23/17 10:18 53 L 143/76 08/23/17 10:17 56 L 143/76 08/23/17 10:16 143/76 08/23/17 07:36 97.9 F 56 L 20 143/76 08/22/17 20:00 67 20 08/22/17 19:01 98.2 F 57 L 16 124/81 98 DSM 5 Symptoms Update: shortly patient is 57 year old male, 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 pt was transferred from medical side for evaluation of depression, hopelessness, med management. Patient was seen and examined today at the treatment team meeting room hygiene is better pt appeared to be depressed, hopeless, helpless, feeling that he is a burden for his son, pt wanted to have his own place. pt said that he has h/o stealing, he has a warrant for his arrest for that. pt wants to pay fines and "I want to apply for the [employer]". pt reported to have insomnia. pt tolerates meds well, no side effects observed or reported AIMS 0, no EPS. DSM 5 Diagnosis: rule out major depressive disorder Rule out substance induced mood disorder Opioid use disorder with addiction Medication Change: Yes Medical Record Reviewed: Yes Consults ordered or reviewed: med consult appreciated Mental Status Examination - Cognitive Function Orientation: Person, Place, Situation, Time Memory: Intact Attention: Poor Concentration: Poor Association: WNL Fund of Knowledge: WNL - Mood Mood: Depressed, Anxious - Affect Affect: Flat - Formal Thought Process Formal Thought Process: No Impairment - Suicidal Ideation Suicidal Ideation: No - Homicidal Ideation Homicidal Ideation: No Goal/Treatment Plan - Goal/Treatment Plan Need for Continued Stay: Remain at risks for inpatient hospitalization, Severe depression anxiety, Discharge may exacerbated symptoms, Severe functional impairment Progress Toward Problem(s) and Goals/Treatment Plan: milieu, structure, supportive therapy Gabapentin [Neurontin] 300 mg PO 3 times a day for withdrawals as well as mood stabilization Lisinopril [Zestril] 10 mg PO DAILY will be continued QUEtiapine [Seroquel] 100 mg at the nighttime from mood stabilization Paxil at the nighttime for depression as well as anxiety Remeron 30 mg at the nighttime as needed for insomnia Vistaril as needed for anxiety Tiotropium [Spiriva] 18 mcg IH DAILY will be continued amLODIPine [Norvasc] 10 mg PO DAILY will be continued no benzodiazepines required Atorvastatin [Lipitor] 1 tab PO DAILY will be continued Labetalol [Trandate] 100 mg PO BID will be continued Lisinopril [Zestril] 20 mg PO DAILY will be continued cloNIDine [Catapres] 0.1 mg PO TID will be continued Milieu/structure/supportive therapy Medical consult appreciated, see medical team note for more detailed info SW consultation for discharge plan and social issues Family involvement Follow up on labs Will monitor closely Pt was educated about risk/benefits and alternatives of medications, coping strategies (safety plan, suicide prevention), relapse prevention, importance of follow up with psychiatrist and therapist, stay away from drugs/alcohol/smoking Estimated Date of D/C: 08/30/17
[2017-08-25] MEDS: Tiotropium 18 mcg Cap For Inhalation IH SCH ×2 (09:13→09:20)
--- NOTE | 2017-08-25 13:32 | PCM.PYCHPN ---
Psychiatric Progress Note - Psychiatric Progress Note Patient seen today, length of contact: 30 minutes Patient Chief Complaint: "I am doing better" Problems Identified/Issues Discussed: Suicide/ homicide prevention, past psychiatric h/o, current psychiatric symptoms , medical problems, risk/benefits and alternatives of medications, medications compliance, coping strategies, substance abuse h/o, relapse prevention, importance of follow up with psychiatrist and therapist, discharge plan. Medical Problems: see HPI Diagnostic Results: Lab Results 08/23/17 08:00: RPR Nonreactive 08/23/17 07:30: TSH 3rd Generation 0.10 L 08/23/17 07:30: Fasting Glucose 98, Triglycerides 71, Cholesterol 119 L, LDL Cholesterol Direct 59, HDL Cholesterol 43 Vital Signs Temp Pulse Pulse Resp BP Pulse Ox 08/24/17 13:55 64 151/86 H 08/24/17 10:34 151/86 H 08/24/17 07:33 97.5 F L 64 20 151/86 H 08/23/17 19:05 57 L 118/80 08/23/17 16:44 59 L 120/84 08/23/17 16:43 59 L 120/84 08/23/17 10:19 56 L 143/76 08/23/17 10:18 53 L 143/76 08/23/17 10:17 56 L 143/76 08/23/17 10:16 143/76 08/23/17 07:36 97.9 F 56 L 20 143/76 08/22/17 20:00 67 20 08/22/17 19:01 98.2 F 57 L 16 124/81 98 DSM 5 Symptoms Update: shortly patient is 57 year old male, 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 pt was transferred from medical side for evaluation of depression, hopelessness, med management. Patient was seen and examined today at the treatment team meeting room, hygiene is better pt appeared to be depressed, hopeless, helpless, feeling that he is a burden for his son, pt wanted to have his own place. pt reported now he wants to find his purpose in life. pt said that he has h/o stealing, he has a warrant for his arrest for that. pt wants to pay fines and "I want to apply for the [employer]". pt reported to have insomnia. pt tolerates meds well, no side effects observed or reported AIMS 0, no EPS. DSM 5 Diagnosis: rule out major depressive disorder Rule out substance induced mood disorder Opioid use disorder with addiction Medication Change: Yes (paxil increased) Medical Record Reviewed: Yes Consults ordered or reviewed: med consult appreciated Mental Status Examination - Cognitive Function Orientation: Person, Place, Situation, Time Memory: Intact Attention: Poor (some improvement) Concentration: Poor (some improvement) Association: WNL Fund of Knowledge: WNL - Mood Mood: Depressed, Anxious - Affect Affect: Flat - Formal Thought Process Formal Thought Process: No Impairment - Suicidal Ideation Suicidal Ideation: No - Homicidal Ideation Homicidal Ideation: No Goal/Treatment Plan - Goal/Treatment Plan Need for Continued Stay: Remain at risks for inpatient hospitalization, Severe depression anxiety, Discharge may exacerbated symptoms, Severe functional impairment Progress Toward Problem(s) and Goals/Treatment Plan: milieu, structure, supportive therapy Gabapentin [Neurontin] 300 mg PO 3 times a day for withdrawals as well as mood stabilization Lisinopril [Zestril] 10 mg PO DAILY will be continued QUEtiapine [Seroquel] 100 mg at the nighttime from mood stabilization Paxil 30mg at the nighttime for depression as well as anxiety Remeron 30 mg at the nighttime as needed for insomnia Vistaril as needed for anxiety Tiotropium [Spiriva] 18 mcg IH DAILY will be continued amLODIPine [Norvasc] 10 mg PO DAILY will be continued no benzodiazepines required Atorvastatin [Lipitor] 1 tab PO DAILY will be continued Labetalol [Trandate] 100 mg PO BID will be continued Lisinopril [Zestril] 20 mg PO DAILY will be continued cloNIDine [Catapres] 0.1 mg PO TID will be continued Milieu/structure/supportive therapy Medical consult appreciated, see medical team note for more detailed info SW consultation for discharge plan and social issues Family involvement Follow up on labs Will monitor closely Pt was educated about risk/benefits and alternatives of medications, coping strategies (safety plan, suicide prevention), relapse prevention, importance of follow up with psychiatrist and therapist, stay away from drugs/alcohol/smoking Estimated Date of D/C: 08/30/17
[2017-08-26] MEDS: Tiotropium 18 mcg Cap For Inhalation IH SCH (09:26)
--- NOTE | 2017-08-26 09:32 | PCM.PYCHPN ---
Psychiatric Progress Note - Psychiatric Progress Note Patient seen today, length of contact: 25 minutes Patient Chief Complaint: "things seem like they are getting better" Problems Identified/Issues Discussed: I reviewed assessment and recent notes. 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 Patient remains depressed and has been appearing a little brighter on the unit recently. Generally has been pleasant and cooperative with staff. He tells me that "things seem like they are getting better". Affect is neutral. He is visible on unit, attending groups and watching tv. He is now sleeping well and appetite is good. Denies any side effects from his medications except for dry mouth. There were no behavioral issues overnight. Diagnostic Results: rule out major depressive disorder Rule out substance induced mood disorder Opioid use disorder with addiction Medication Change: Yes (paxil increased) Medical Record Reviewed: Yes Mental Status Examination - Cognitive Function Orientation: Person, Place, Situation, Time Memory: Intact Attention: Poor (some improvement) Concentration: Poor (some improvement) Association: WNL Fund of Knowledge: WNL - Mood Mood: Depressed ("things seem like they are getting better"), Anxious - Affect Affect: Flat - Formal Thought Process Formal Thought Process: No Impairment - Suicidal Ideation Suicidal Ideation: No - Homicidal Ideation Homicidal Ideation: No Goal/Treatment Plan - Goal/Treatment Plan Need for Continued Stay: Remain at risks for inpatient hospitalization, Severe depression anxiety, Discharge may exacerbated symptoms, Severe functional impairment Progress Toward Problem(s) and Goals/Treatment Plan: Group, milieu and supportive tx Vitals reviewed and noted below 08/25/17 08/25/17 08/25/17 07:06 09:13 09:14 Temperature 97.8 F Pulse Rate 54 L 60 60 Respiratory 20 Rate Blood Pressure 133/92 H 130/90 130/90 08/25/17 08/25/17 08/25/17 09:52 12:30 16:00 Temperature Pulse Rate 60 60 52 L Respiratory Rate Blood Pressure 130/90 117/75 103/67 08/25/17 17:50 Temperature Pulse Rate 65 Respiratory Rate Blood Pressure 106/66 No new weekend labs thus far CONTINUE MEDICATIONS Neurontin 600 mg PO tid for withdrawals as well as mood stabilization Seroquel 100 mg at the nighttime from mood stabilization Paxil 30mg at the nighttime for depression as well as anxiety Remeron 30 mg at the nighttime as needed for insomnia Vistaril 50 mg po QID prn anxiety Estimated Date of D/C: 08/30/17
[2017-08-27 06:48] VITALS: O2SAT 94
[2017-08-27] MEDS: Tiotropium 18 mcg Cap For Inhalation IH SCH (08:37)
--- NOTE | 2017-08-27 09:43 | PCM.PYCHPN ---
Psychiatric Progress Note - Psychiatric Progress Note Patient seen today, length of contact: 25 minutes Patient Chief Complaint: "things are okay" Problems Identified/Issues Discussed: I reviewed assessment and recent notes. 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 Patient remains depressed but has appeared a little brighter on the unit recently. Generally has been pleasant and cooperative with staff. I saw patient at bedside this morning and he tells me that "things are okay". Denies any new concerns. Affect is neutral. He has been visible on unit, attending groups and watching tv. He continues to sleep well and appetite is good. Denies any side effects from his medications except for dry mouth. There were no behavioral issues over the weekend. Diagnostic Results: rule out major depressive disorder Rule out substance induced mood disorder Opioid use disorder with addiction Medication Change: Yes (paxil increased) Medical Record Reviewed: Yes Mental Status Examination - Cognitive Function Orientation: Person, Place, Situation, Time Memory: Intact Attention: Poor (some improvement) Concentration: Poor (some improvement) Association: WNL Fund of Knowledge: WNL - Mood Mood: Depressed ( "things are okay"), Anxious - Affect Affect: Flat - Formal Thought Process Formal Thought Process: No Impairment - Suicidal Ideation Suicidal Ideation: No - Homicidal Ideation Homicidal Ideation: No Goal/Treatment Plan - Goal/Treatment Plan Need for Continued Stay: Remain at risks for inpatient hospitalization, Severe depression anxiety, Discharge may exacerbated symptoms, Severe functional impairment Progress Toward Problem(s) and Goals/Treatment Plan: Group, milieu and supportive tx Vitals reviewed and noted below 08/27/17 08/27/17 06:47 08:36 Temperature 97.4 F L Pulse Rate 51 L 60 Respiratory 18 Rate Blood Pressure 110/64 112/66 O2 Sat by Pulse 94 L Oximetry No new weekend labs CONTINUE MEDICATIONS Neurontin 600 mg PO tid for withdrawals as well as mood stabilization Seroquel 100 mg at the nighttime from mood stabilization Paxil 30mg at the nighttime for depression as well as anxiety Remeron 30 mg at the nighttime as needed for insomnia Vistaril 50 mg po QID prn anxiety Estimated Date of D/C: 08/30/17
[2017-08-28 07:41] VITALS: RESP 20
[2017-08-28] MEDS: Tiotropium 18 mcg Cap For Inhalation IH SCH (08:30)
--- NOTE | 2017-08-28 16:24 | PCM.PYCHPN ---
Psychiatric Progress Note - Psychiatric Progress Note Patient seen today, length of contact: 25 minutes Patient Chief Complaint: "I am doing better" Problems Identified/Issues Discussed: Suicide/ homicide prevention, past psychiatric h/o, current psychiatric symptoms , medical problems, risk/benefits and alternatives of medications, medications compliance, coping strategies, substance abuse h/o, relapse prevention, importance of follow up with psychiatrist and therapist, discharge plan. Medical Problems: see HPI Diagnostic Results: Lab Results 08/23/17 08:00: RPR Nonreactive 08/23/17 07:30: TSH 3rd Generation 0.10 L 08/23/17 07:30: Fasting Glucose 98, Triglycerides 71, Cholesterol 119 L, LDL Cholesterol Direct 59, HDL Cholesterol 43 Vital Signs Temp Pulse Pulse Resp BP Pulse Ox 08/24/17 13:55 64 151/86 H 08/24/17 10:34 151/86 H 08/24/17 07:33 97.5 F L 64 20 151/86 H 08/23/17 19:05 57 L 118/80 08/23/17 16:44 59 L 120/84 08/23/17 16:43 59 L 120/84 08/23/17 10:19 56 L 143/76 08/23/17 10:18 53 L 143/76 08/23/17 10:17 56 L 143/76 08/23/17 10:16 143/76 08/23/17 07:36 97.9 F 56 L 20 143/76 08/22/17 20:00 67 20 08/22/17 19:01 98.2 F 57 L 16 124/81 98 Temp Pulse Resp BP Pulse Ox 97.9 F 56 L 20 108/71 94 L 08/28/17 07:40 08/28/17 08:29 08/28/17 07:40 08/28/17 08:29 08/27/17 06:47 DSM 5 Symptoms Update: shortly patient is 57 year old male, 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 pt was transferred from medical side for evaluation of depression, hopelessness, med management. Patient was seen and examined today at the treatment team meeting room, hygiene is better, pt c/o low energy, BP now is very low, d/w , clonidine and lisinopril will be decreased. pt appeared to be less depressed, more hopeful. pt wants to apply for senior citizen housing program. pt sleeps better. pt tolerates meds well, no side effects observed or reported AIMS 0, no EPS. DSM 5 Diagnosis: rule out major depressive disorder Rule out substance induced mood disorder Opioid use disorder with addiction Medication Change: Yes (paxil increased) Medical Record Reviewed: Yes Consults ordered or reviewed: med consult appreciated Mental Status Examination - Cognitive Function Orientation: Person, Place, Situation, Time Memory: Intact Attention: Poor Concentration: Poor (some improvement) Association: WNL Fund of Knowledge: WNL - Mood Mood: Depressed ( "things are okay"), Anxious - Affect Affect: Flat - Formal Thought Process Formal Thought Process: No Impairment - Suicidal Ideation Suicidal Ideation: No - Homicidal Ideation Homicidal Ideation: No Goal/Treatment Plan - Goal/Treatment Plan Need for Continued Stay: Remain at risks for inpatient hospitalization, Severe depression anxiety, Discharge may exacerbated symptoms, Severe functional impairment Progress Toward Problem(s) and Goals/Treatment Plan: milieu, structure, supportive therapy Gabapentin [Neurontin] 300 mg PO 3 times a day for withdrawals as well as mood stabilization Lisinopril [Zestril] 10 mg PO DAILY will be continued QUEtiapine [Seroquel] 100 mg at the nighttime from mood stabilization Paxil 40mg at the nighttime for depression as well as anxiety Remeron 30 mg at the nighttime as needed for insomnia Vistaril as needed for anxiety Tiotropium [Spiriva] 18 mcg IH DAILY will be continued amLODIPine [Norvasc] 10 mg PO DAILY will be continued no benzodiazepines required Atorvastatin [Lipitor] 1 tab PO DAILY will be continued Labetalol [Trandate] 100 mg PO BID will be continued Lisinopril [Zestril] 20 mg PO DAILY will be continued cloNIDine [Catapres] 0.1 mg PO TID will be continued Milieu/structure/supportive therapy Medical consult appreciated, see medical team note for more detailed info SW consultation for discharge plan and social issues Family involvement Follow up on labs Will monitor closely Pt was educated about risk/benefits and alternatives of medications, coping strategies (safety plan, suicide prevention), relapse prevention, importance of follow up with psychiatrist and therapist, stay away from drugs/alcohol/smoking Estimated Date of D/C: 08/30/17
[2017-08-29] MEDS: Tiotropium 18 mcg Cap For Inhalation IH SCH (09:15)
--- NOTE | 2017-08-29 15:11 | PCM.PYCHPN ---
Psychiatric Progress Note - Psychiatric Progress Note Patient seen today, length of contact: 30min Patient Chief Complaint: "I am okay" Problems Identified/Issues Discussed: Suicide/ homicide prevention, past psychiatric h/o, current psychiatric symptoms , medical problems, risk/benefits and alternatives of medications, medications compliance, coping strategies, substance abuse h/o, relapse prevention, importance of follow up with psychiatrist and therapist, discharge plan. Medical Problems: CVA with residual weakness on the right side, chronic back pain, obesity, hypertension. Diagnostic Results: Lab Results 08/23/17 08:00: RPR Nonreactive 08/23/17 07:30: TSH 3rd Generation 0.10 L 08/23/17 07:30: Fasting Glucose 98, Triglycerides 71, Cholesterol 119 L, LDL Cholesterol Direct 59, HDL Cholesterol 43 Vital Signs Temp Pulse Pulse Resp BP Pulse Ox 08/24/17 13:55 64 151/86 H 08/24/17 10:34 151/86 H 08/24/17 07:33 97.5 F L 64 20 151/86 H 08/23/17 19:05 57 L 118/80 08/23/17 16:44 59 L 120/84 08/23/17 16:43 59 L 120/84 08/23/17 10:19 56 L 143/76 08/23/17 10:18 53 L 143/76 08/23/17 10:17 56 L 143/76 08/23/17 10:16 143/76 08/23/17 07:36 97.9 F 56 L 20 143/76 08/22/17 20:00 67 20 08/22/17 19:01 98.2 F 57 L 16 124/81 98 Temp Pulse Resp BP Pulse Ox 97.9 F 56 L 20 108/71 94 L 08/28/17 07:40 08/28/17 08:29 08/28/17 07:40 08/28/17 08:29 08/27/17 06:47 Temp Pulse Resp BP Pulse Ox 97.8 F 58 L 20 130/88 94 L 08/29/17 06:55 08/29/17 09:14 08/29/17 06:55 08/29/17 09:14 08/27/17 06:47 DSM 5 Symptoms Update: shortly patient is 57 year old male, 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 pt was transferred from medical side for evaluation of depression, hopelessness, med management. Patient was seen and examined today at the treatment team meeting room, hygiene is better, pt's BP was on the low side yesterday, discussed with medical attending , clonidine and lisinopril were decreased, BP WNL today, pt presented to be depressed, flat affect, disengaged in conversation. even though pt said he is less depressed, it is obvious that pt presented this way. pt reported sleeping better, pt was interviewed by SW, pt said that he is "giving up", but denied any active plan or intent to harm self or others. pt tolerates meds well, no side effects observed or reported AIMS 0, no EPS. DSM 5 Diagnosis: rule out major depressive disorder Rule out substance induced mood disorder Opioid use disorder with addiction will consider TCA for mdd for this pt Medication Change: Yes (remeron d/c) Medical Record Reviewed: Yes Mental Status Examination - Cognitive Function Orientation: Person, Place, Situation, Time Memory: Intact Attention: Poor Concentration: Poor (some improvement) Association: WNL Fund of Knowledge: WNL - Mood Mood: Depressed ("I am okay"), Anxious - Affect Affect: Flat - Formal Thought Process Formal Thought Process: No Impairment - Suicidal Ideation Suicidal Ideation: No - Homicidal Ideation Homicidal Ideation: No Goal/Treatment Plan - Goal/Treatment Plan Need for Continued Stay: Remain at risks for inpatient hospitalization, Severe depression anxiety, Discharge may exacerbated symptoms, Severe functional impairment Progress Toward Problem(s) and Goals/Treatment Plan: milieu, structure, supportive therapy Gabapentin [Neurontin] 300 mg PO 3 times a day for withdrawals as well as mood stabilization Lisinopril [Zestril] 10 mg PO DAILY will be continued QUEtiapine [Seroquel] 100 mg at the nighttime from mood stabilization Paxil 40mg at the nighttime for depression as well as anxiety Remeron will be d/c Vistaril as needed for anxiety Tiotropium [Spiriva] 18 mcg IH DAILY will be continued amLODIPine [Norvasc] 10 mg PO DAILY will be continued no benzodiazepines required Atorvastatin [Lipitor] 1 tab PO DAILY will be continued Labetalol [Trandate] 100 mg PO BID will be continued Lisinopril [Zestril] was decreased cloNIDine [Catapres] 0.1 mg PO bid Milieu/structure/supportive therapy Medical consult appreciated, see medical team note for more detailed info consultation for discharge plan and social issues Family involvement Follow up on labs Will monitor closely Pt was educated about risk/benefits and alternatives of medications, coping strategies (safety plan, suicide prevention), relapse prevention, importance of follow up with psychiatrist and therapist, stay away from drugs/alcohol/smoking Estimated Date of D/C: 09/01/17 (pt said "I am giving up to the ")
[2017-08-30 07:28] VITALS: BP 145/88; PULSE 55; TEMP 97.6
[2017-08-30] MEDS: Tiotropium 18 mcg Cap For Inhalation IH SCH (09:44)
--- NOTE | 2017-08-30 14:32 | PCM.PYCHDC ---
Mental Status Examination - Mental Status Examination Orientation: Person, Place, Situation, Time Memory: Intact Mood: Neutral Affect: Broad (and mood congruent) Speech: Appropriate Attention: WNL Concentration: WNL Association: WNL Fund of Knowledge: WNL Formal Thought Process: No Impairment Description of patient's judgement and insight: Pt has improved insight into mental and medical illness, pt was compliant with medications and unit rules and regulations, pt was going to groups, was calm, cooperative, socially appropriate, no behavioral incidents, no agitation, no aggression. Psychotic Thoughts and Behaviors: Pt denied v/a/t hallucinations, denied paranoid ideations, pt does not appear to be psychotic, and thought process is goal directed. Suicidal Ideation: No Current Homicidal Ideation?: No Plan: pt adamantly denied thoughts of harming self or others denied intent or plan. Discharge Summary - Discharge Note Reason for Hospitalization: pt was transferred from the medical floor where he was admitted s/p fall and some weakness r/o CVA, pt was found to be depressed, hopeless, unable to function. Psychiatric History (includes Medical, Family, Personal Hx): see HPI Laboratory Data: Lab Results 08/23/17 08:00: RPR Nonreactive 08/23/17 07:30: TSH 3rd Generation 0.10 L 08/23/17 07:30: Fasting Glucose 98, Triglycerides 71, Cholesterol 119 L, LDL Cholesterol Direct 59, HDL Cholesterol 43 Vital Signs Temp Pulse Pulse Resp BP Pulse Ox 08/30/17 09:44 55 L 145/88 08/30/17 09:43 55 L 145/88 08/30/17 09:42 55 L 145/88 08/30/17 07:27 97.6 F 55 L 20 145/88 08/29/17 17:35 56 L 113/72 08/29/17 17:34 56 L 113/72 08/29/17 16:00 56 L 113/72 08/29/17 09:14 58 L 130/88 08/29/17 09:13 58 L 130/88 08/29/17 09:12 130/88 08/29/17 06:55 97.8 F 58 L 20 130/88 08/28/17 17:12 61 129/85 08/28/17 16:00 61 129/85 08/28/17 08:29 56 L 108/71 08/28/17 08:27 56 L 108/71 08/28/17 07:40 97.9 F 56 L 20 108/71 08/27/17 17:21 62 108/66 08/27/17 16:31 54 L 105/70 08/27/17 14:02 62 108/62 08/27/17 08:36 60 112/66 08/27/17 06:47 97.4 F L 51 L 18 110/64 94 L 08/26/17 17:56 63 105/76 08/26/17 17:54 62 105/76 08/26/17 15:00 56 L 103/70 08/26/17 14:08 64 110/76 08/26/17 09:25 72 107/70 08/26/17 09:24 72 107/70 08/26/17 09:23 107/70 08/26/17 07:00 97.9 F 72 20 107/70 08/26/17 06:48 97.9 F 72 20 107/70 08/25/17 17:50 65 106/66 08/25/17 16:00 52 L 103/67 08/25/17 12:30 60 117/75 08/25/17 09:52 60 130/90 08/25/17 09:14 60 130/90 08/25/17 09:13 60 130/90 08/25/17 07:06 97.8 F 54 L 20 133/92 H 08/24/17 17:19 53 L 102/64 08/24/17 16:25 53 L 102/64 08/24/17 15:43 64 151/86 H 08/24/17 13:55 64 151/86 H 08/24/17 10:34 151/86 H 08/24/17 07:33 97.5 F L 64 20 151/86 H 08/23/17 19:05 57 L 118/80 08/23/17 16:44 59 L 120/84 08/23/17 16:43 59 L 120/84 08/23/17 10:19 56 L 143/76 08/23/17 10:18 53 L 143/76 08/23/17 10:17 56 L 143/76 08/23/17 10:16 143/76 08/23/17 07:36 97.9 F 56 L 20 143/76 08/22/17 20:00 67 20 03/20/18 19:01 98.2 F 57 L 16 124/81 98 Consultations:: List each consultation separately and include: 1. Reason for request. 2. Findings. 3. Follow-up Consultations: med consult appreciated see notes for more detailed information BP much better, meds adjusted Summary of Hospital Course include:: 1. Description of specific treatment plan utilized for patients during their course of treatmen. 2. Summarize the time- course for resolution of acute symptoms and/or regressed behaviors. 3. Describe issues identified and worked on during hospitalization. 4. Describe medication utilized. 5. Describe medical problems identified and treated. 6. 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 pt was transferred from medical side for evaluation of depression, hopelessness, med management. at the time of admission to the psychiatric inpatient unit patient presented to have acceptable personal hygiene but seems to be careless about his appearance, patient also had acceptable ADLs. Patient reported that that he was feeling depressed because he has no job, he has a lot of free time, patient reported that he was using heroin in snorting, patient has history or being on heroine IV drug use for more than 25 years, patient reported that his veins are collapsed and now he can only snort heroine. Patient has multiple rehabs, detoxes in the past, the longest period of sobriety is 8 years while he was incarcerated. patient reported that he was feeling depressed, hopeless, helpless, feeling that he is a burden for his son, patient reported that she was using drugs more frequently, during the interview patient denied any withdrawal symptoms. Patient reported that he had difficulties to fall and stay asleep. Treatment goals: "there is no fixing what I got...I need to find a comfortable spot some place." pt was willing to go to inpatient rehab, but due to medical issues pt was not accepted. pt reported to smoke about 3cigarettes a day, refused nicotine patch, counseling provided. pt denied hearing voices, denied seeing things, denied paranoid ideation. History of multiple arrests, incarcerations, history of being witness of violence in the community. denied PTSD. past psychiatric history: patient denied history of being admitted to psychiatric inpatient units, denied history of suicidal attempts. Family history: Patient denied family history of mental illness, but history or substance abuse as well as incarcerations. Medical issues: CVA with residual weakness on the right side, chronic back pain, obesity, hypertension. 08/23/17 08/23/17 07:30 07:30 Fasting Glucose 98 Triglycerides 71 Cholesterol 119 L LDL Cholesterol Direct 59 HDL Cholesterol 43 TSH 3rd Generation 0.10 L Vital Signs Temp Pulse Pulse Resp BP Pulse Ox 08/23/17 10:19 56 L 143/76 08/23/17 10:18 53 L 143/76 08/23/17 10:17 56 L 143/76 08/23/17 10:16 143/76 08/23/17 07:36 97.9 F 56 L 20 143/76 08/22/17 20:00 67 20 08/22/17 19:01 98.2 F 57 L 16 124/81 98 over the course of this hospitalization pt was stabilized on the following medications: Gabapentin [Neurontin] 300 mg PO 3 times a day for withdrawals as well as mood stabilization QUEtiapine [Seroquel] 100 mg at the nighttime from mood stabilization Paxil 40mg at the nighttime for depression as well as anxiety Vistaril as needed for anxiety pt tolerated medications well, no side effects observed or reported, aims 0, no EPS. Patient was continued on following medical medications: Lisinopril [Zestril] 10 mg PO DAILY Tiotropium [Spiriva] 18 mcg IH DAILY amLODIPine [Norvasc] 10 mg PO DAILY Atorvastatin [Lipitor] 1 tab PO DAILY Labetalol [Trandate] 100 mg PO BID Lisinopril [Zestril] was decreased cloNIDine [Catapres] 0.1 mg PO bid Over the course of this hospitalization pt was attending groups, pt also had medication management, had therapeutic milieu. Overall pt improved significantly, pt's affect became brighter, pt was less depressed, has realistic future oriented plans "I want to stay with my brother in [facility], he lives far, I want to stay sober, he is coming tomorrow to my son's house to pick me up, I am okay now, I am fine", pt also does not appear to be psychotic, or anxious, pt was socially appropriate, no behavioral issues, pts insight improved as well and soon pt deemed to be ready for discharge. 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 pt denied h/o suicidal attempts. At the time of the discharge pt denied been depressed, denied thoughts of harming self or others, denied psychotic symptoms, and pt does not appeared to be psychotic, denied been anxious, pt is not in imminent danger to self or others, will be following up at [facility], information about follow up appointment, time and address provided to the pt, it is patient responsibility to follow up with outpatient clinic, PMD as well as specialists (see note for more detailed information). In case pt will need to obtain results of studies pending at discharge pt was provided with contact information of Psychiatric Inpatient unit [phone] as well as Medical Record Department [phone]. Nicotine patch was offered Naltrexone treatment is not indicated, pt needs to be off opioids for at least two weeks, moreover pt does not want to be on any suboxone, methadone Counseling about smoking and alcohol cessation provided AA meetings as well as smoking cessation treatment program information was provided by the pt was provided with prescriptions for all of medications (please see medication reconciliation form) Pt was educated about safety plan in case of worsening of symptoms or in case of suicidal or homicidal ideation call 911 or go to the nearest ER, also was educated to take meds as prescribed and stay away from drugs, pt verbalized understanding. - Diagnosis (1) MDD (major depressive disorder) Current Visit: Yes Status: Acute Priority: Medium (2) Opiate dependence Current Visit: No Status: Chronic Priority: High Comment: Per Dr. Garay continue Methadone taper Transfer to Psych when medically cleared. Zofran 4mg IV q6 prn N/V Monitor COWS - Final Diagnosis (DSM 5) Condition upon Discharge: STABLE Disposition: HOME/ ROUTINE Follow-up Treatment Plan: At the time of the discharge pt denied been depressed, denied thoughts of harming self or others, denied psychotic symptoms, and pt does not appeared to be psychotic, denied been anxious, pt is not in imminent danger to self or others, will be following up at [facility], information about follow up appointment, time and address provided to the pt, it is patient responsibility to follow up with outpatient clinic, PMD as well as specialists (see note for more detailed information). In case pt will need to obtain results of studies pending at discharge pt was provided with contact information of Psychiatric Inpatient unit [phone] as well as Medical Record Department [phone]. Nicotine patch was offered Naltrexone treatment is not indicated, pt needs to be off opioids for at least two weeks, moreover pt does not want to be on any suboxone, methadone Counseling about smoking and alcohol cessation provided AA meetings as well as smoking cessation treatment program information was provided by the pt was provided with prescriptions for all of medications (please see medication reconciliation form) Pt was educated about safety plan in case of worsening of symptoms or in case of suicidal or homicidal ideation call 911 or go to the nearest ER, also was educated to take meds as prescribed and stay away from drugs, pt verbalized understanding. Prescriptions/Medication Reconciliation: RX: amLODIPine [Norvasc] 10 mg PO DAILY #7 tab RX: Aspirin [Ecotrin] 81 mg PO DAILY #7 tabec RX: Atorvastatin [Lipitor] 20 mg PO DIN #7 tab RX: cloNIDine [Catapres] 0.1 mg PO BID #14 tab RX: Famotidine [Pepcid] 20 mg PO 1000,2200 #14 tab RX: Gabapentin [Neurontin] 600 mg PO TID #45 tab RX: Labetalol [Trandate] 100 mg PO BID #14 tab RX: Lisinopril [Zestril] 10 mg PO DAILY #7 tab Paroxetine HCl [Paxil] 40 mg PO HS #14 tablet RX: QUEtiapine [Seroquel] 100 mg PO HS #14 tab RX: Tiotropium [Spiriva] 18 mcg IH DAILY #1 cap - Smoking Cessation Smoking Cessation Medication prescribed: Yes - Antipsychotic Medications Pt discharged on 2 or more routine antipsychotic medications: No
== END 2017-08-30 17:05 | disposition home or self-care (01) | DRG 426 ==
LOC: PSYC 18:20
PROVIDERS: ADMIT Psychiatry & Neurology Psychiatry; ATTEND Psychiatry & Neurology Psychiatry
DX: F32.9 Major depressive disorder, single episode, unspecified (principal); F11.23 Opioid dependence with withdrawal; J43.9 Emphysema, unspecified; G47.00 Insomnia, unspecified; E66.9 Obesity, unspecified; F41.9 Anxiety disorder, unspecified; G89.29 Other chronic pain; I10 Essential (primary) hypertension; I69.351 Hemiplegia and hemiparesis following cerebral infarction affecting right dominant side; N28.9 Disorder of kidney and ureter, unspecified; Z79.899 Other long term (current) drug therapy; F17.210 Nicotine dependence, cigarettes, uncomplicated; Z68.41 Body mass index [BMI] 40.0-44.9, adult

== ENCOUNTER 2017-11-25 20:15 | Inpatient (IN) | payer MEDICAID ==
[2017-11-25 20:16] VITALS: BMI 36.1
--- NOTE | 2017-11-25 21:03 | ED PDOC ---
Arrival/HPI - General Historian: Patient - History of Present Illness Time/Duration: 24 hours Symptom Onset: Sudden - General Chief Complaint: Anxiety Time Seen by Provider: 11/25/17 20:39 - History of Present Illness Narrative History of Present Illness (Text): 57 year old male with psychiatric history, alcohol abuse history, drug abuse, presents because he says he "feels crappy". Patient states he used 4 bags of heroine yesterday after several weeks and does not want to go back to using drugs. Patient wants help and wants to see psychiatrist. denies suicidal ideation, homicidal ideation, denies shortness of breath, chest pain, fever, chills, sore throat or any other complaints at this time. 11/25/17 21:01 (Josh Harding) Past Medical History - Provider Review Nursing Documentation Reviewed: Yes - Past History Past History: Non-Contributing - Infectious Disease Hx of Infectious Diseases: None - Cardiac Hx Cardiac Disorders: Yes Hx Hypertension: Yes - Pulmonary Hx Respiratory Disorders: Yes Hx Chronic Obstructive Pulmonary Disease (COPD): Yes Hx Emphysema: Yes - Neurological Hx Neurological Disorder: Yes HX Cerebrovascular Accident: Yes - HEENT Hx HEENT Disorder: No - Renal Hx Renal Disorder: No - Endocrine/Metabolic Hx Endocrine Disorders: No - Hematological/Oncological Hx Blood Disorders: No - Integumentary Hx Dermatological Disorder: No - Musculoskeletal/Rheumatological Hx Musculoskeletal Disorders: Yes Hx Back Pain: Yes - Gastrointestinal Hx Gastrointestinal Disorders: No - Genitourinary/Gynecological Hx Genitourinary Disorders: No - Psychiatric Hx Psychophysiologic Disorder: Yes Hx Anxiety: Yes Hx Bipolar Disorder: Yes Hx Depression: Yes Hx Substance Use: Yes - Past Surgical History Past Surgical History: No Previous - Surgical History Hx Cardiac Catheterization: Yes - Anesthesia Hx Anesthesia: No - Suicidal Assessment Feels Threatened In Home Enviroment: No Family/Social History - Physician Review Nursing Documentation Reviewed: Yes Family/Social History: No Known Family HX Smoking Status: Light Smoker < 10 Cigarettes Daily Hx Alcohol Use: No Hx Substance Use: Yes Substance used: Heroin daily, last used yesterday night Hx Substance Use Treatment: Yes Allergies/Home Meds Allergies/Adverse Reactions: Allergies Penicillins Allergy (Verified 11/25/17 20:18) RASH Home Medications: Home Meds Medication Instructions Recorded Confirmed Furosemide 20 mg PO DAILY 06/24/18 06/24/18 Review of Systems - Review of Systems Constitutional: Normal Eyes: Normal ENT: Normal Respiratory: Normal Cardiovascular: Normal Gastrointestinal: Normal Genitourinary Male: Normal Musculoskeletal: Normal Skin: Normal Neurological: Normal Endocrine: Normal Hemo/Lymphatic: Normal Psychiatric: Anxiety. absent: Suicidal Ideation Physical Exam Temperature: Afebrile Blood Pressure: Normal Pulse: Regular Respiratory Rate: Normal Appearance: Positive for: Well-Appearing, Non-Toxic, Comfortable, Unkept Pain Distress: None Mental Status: Positive for: Alert and Oriented X 3 - Systems Exam Head: Present: Atraumatic, Normocephalic Pupils: Present: PERRL Extroacular Muscles: Present: EOMI Conjunctiva: Present: Normal Mouth: Present: Moist Mucous Membranes Neck: Present: Normal Range of Motion Respiratory/Chest: Present: Clear to Auscultation. No: Respiratory Distress, Accessory Muscle Use Cardiovascular: Present: Regular Rate and Rhythm, Normal S1, S2 Abdomen: No: Tenderness, Distention Upper Extremity: No: Edema Lower Extremity: Present: NORMAL PULSES. No: Edema Neurological: Present: GCS=15 Skin: Present: Warm Psychiatric: Present: Alert, Oriented x 3, Normal Insight, Normal Concentration , Anxious. No: Depressed Mood, Suicidal Ideation, Homicidal Ideation, Delusional, Hallucinations Vital Signs Temp Pulse Resp BP Pulse Ox 11/26/17 06:58 98.0 F 62 17 130/86 96 11/26/17 04:16 82 16 107/66 11/26/17 02:16 80 17 116/74 100 11/25/17 22:16 84 16 108/68 99 11/25/17 20:21 98.1 F 80 16 104/71 96 Medical Decision Making ED Course and Treatment: Plan -EKG, UDS, CBC, chest xray, CPK -reasses 11/25/17 21:04 -EKG, labs WNL -Chest CT Pending 11/25/17 23:56 1. Mosaic pattern of pulmonary attenuation with moderate pulmonary overinflation and prominent main pulmonary arteries. The findings suggest pulmonary artery hypertension although there may be an element of air trapping accounting for the mosaic attenuation. 2. No other CT evidence of intrathoracic mass, acute inflammatory process or lymphadenopathy. 3. Shrunken and macronodular liver suggesting underlying hepatic cirrhosis. 11/26/17 06:07 (Josh Harding) Patient Seen With Resident: In agreement with resident note which contains more details about the patient. Patient was seen and evaluated with resident. Came up with plan and treatment together.. on re evaluation pending ct scan pt states chest pressure on and off for a day , no fever or chills will tele obs for chest pain and abnormal ekg 11/26/17 07:08 case d/w dr villa [id number] case (Jorge Pitts) - Lab Interpretations Lab Results: 11/25/17 21:49 11/25/17 21:49 Lab Results 11/26/17 03:10: Urine Color Yellow, Urine Appearance Clear, Urine pH 5.5, Ur Specific [place] >= 1.030, Urine Protein Negative, Urine Glucose (UA) Negative, Urine Ketones Negative, Urine Blood Negative, Urine Nitrate Negative, Urine Bilirubin Negative, Urine Urobilinogen 0.2, Ur Leukocyte Esterase Negative 11/26/17 03:10: Urine Opiates Screen Negative, Urine Methadone Screen Negative, Ur Barbiturates Screen Negative, Ur Phencyclidine Scrn Negative, Ur Amphetamines Screen Negative, U Benzodiazepines Scrn Positive H, U Oth Cocaine Metabols Negative, U Cannabinoids Screen Negative 11/25/17 21:49: Lactate Dehydrogenase 598, Total Creatine Kinase 62, Troponin I < 0.01, NT-Pro-B Natriuret Pep 235 11/25/17 21:49: Salicylates < 1 L, Acetaminophen < 10.0 L 11/25/17 21:49: Sodium 139, Potassium 4.2, Chloride 99, Carbon Dioxide 28, Anion Gap 17, BUN 17, Creatinine 1.4, Est GFR ( Amer) > 60, Est GFR (Non- Af Amer) 52, Random Glucose 66 L, Calcium 9.5, Magnesium 1.7, Total Bilirubin 0.7, AST 43, ALT 40, Alkaline Phosphatase 88, Total Creatine Kinase 61, Total Protein 9.1 H, Albumin 4.5, Globulin 4.6, Albumin/Globulin Ratio 1.0 L 11/25/17 21:49: WBC 8.9, RBC 5.43, Hgb 15.7, Hct 45.6, MCV 84.0, MCH 28.9, MCHC 34.4, RDW 14.4, Plt Count 186, MPV 10.5, Gran % 48.0 L, Lymph % (Auto) 36.5 H, [place] % (Auto) 12.3 H, Eos % (Auto) 2.8, Baso % (Auto) 0.4, Gran # 4.28, Lymph # (Auto) 3.3, [place] # (Auto) 1.1 H, Eos # (Auto) 0.3, Baso # (Auto) 0.04 11/25/17 21:49: Alcohol, Quantitative < 10 - RAD Interpretation Radiology Orders: 11/25/17 21:22 CHEST PORTABLE [RAD] Stat 11/25/17 23:55 CHEST W/O CONTRAST [CT] Stat - EKG Interpretation EKG Interpretation (Text): 11/26/17 06:32 sinus rate of 57 , nssts chsnges (Jorge Pitts) - Medication Orders Current Medication Orders: Amlodipine Besylate (Norvasc) 10 mg PO DAILY [facility] Last Admin: 11/26/17 12:00 Dose: 10 mg MAR Blood Pressure Document 11/26/17 12:00 (Rec: 11/26/17 12:00 [id number]) Blood Pressure Blood Pressure (100/60-150/90) 127/85 Aspirin (Ecotrin) 81 mg PO DAILY [facility]N Last Admin: 11/26/17 11:54 Dose: 81 mg Famotidine (Pepcid) 20 mg PO 1000,2200 [facility]N Last Admin: 11/26/17 22:55 Dose: 20 mg Furosemide (Lasix) 20 mg PO DAILY [facility] Heparin Sodium (Porcine) (Heparin) 5,000 units SC Q12 [facility] PRN Reason: Protocol Last Admin: 11/26/17 22:56 Dose: 5,000 units Subcutaneous Administrations Document 11/26/17 22:56 (Rec: 11/26/17 22:56 [id number] Charges for Administration # of Subcutaneous Administrations 1 Azithromycin (Zithromax 500mg In Ns) 500 mg in 250 mls @ 167 mls/hr IVPB DAILY [facility]N PRN Reason: Protocol Last Admin: 11/26/17 18:14 Dose: 167 mls/hr eMAR Start Stop Document 11/26/17 18:14 RV (Rec: 11/26/17 18:15 RV [id number]) Intravenous Solution Start Date 11/26/17 Start Time 18:14 End Date 11/26/17 End time 19:14 Total Infusion Time 60 Ceftriaxone Sodium (Rocephin 1 Gram Ivpb) 1 gm in 100 mls @ 100 mls/hr IVPB DAILY [facility] PRN Reason: Protocol Last Admin: 11/26/17 18:15 Dose: 100 mls/hr eMAR Start Stop Document 11/26/17 18:15 RV (Rec: 11/26/17 18:15 RV [id number]) Intravenous Solution Start Date 11/26/17 Start Time 18:15 End Date 11/26/17 End time 19:15 Total Infusion Time 60 Lisinopril (Zestril) 10 mg PO DAILY [facility] Last Admin: 11/26/17 12:00 Dose: 10 mg Paroxetine HCl (Paxil) 10 mg PO HS [facility]N Last Admin: 11/26/17 22:55 Dose: 10 mg Quetiapine Fumarate (Seroquel) 100 mg PO HS [facility] PRN Reason: Protocol Last Admin: 11/26/17 22:55 Dose: 100 mg Behavioural Document 11/26/17 22:55 RM (Rec: 11/26/17 22:55 RM [id number] Maintenance Maintenance Dose Yes Tiotropium [place] (Spiriva) 18 mcg IH DAILY [facility] Last Admin: 11/26/17 11:58 Dose: 18 mcg Discontinued Medications Albuterol/Ipratropium (Duoneb 3 Mg/0.5 Mg (3 Ml) Ud) 3 ml IH Q6H PRN PRN Reason: Shortness of Breath Stop: 11/26/17 19:31 Furosemide (Lasix) 40 mg IVP ONCE ONE Stop: 11/26/17 17:27 Last Admin: 11/26/17 18:12 Dose: 40 mg MAR Blood Pressure Document 11/26/17 18:12 RV (Rec: 11/26/17 18:15 RV [id number]) Blood Pressure Blood Pressure (100/60-150/90) 139/90 IVP Administration Document 11/26/17 18:12 RV (Rec: 11/26/17 18:15 RV [id number]) Charges for Administration # of IVP Administrations 1 Disposition/Present on Arrival - Present on Arrival Any Indicators Present on Arrival: No History of DVT/PE: No History of Uncontrolled Diabetes: No Urinary Catheter: No History of Decub. Ulcer: No History Surgical Site Infection Following: None - Disposition Have Diagnosis and Disposition been Completed?: Yes Disposition Time: 06:09 - Disposition Diagnosis: Anxiety, Drug abuse Disposition: HOSPITALIZED Patient Problems: Current Active Problems Problem Status Onset Anxiety Acute Drug abuse Acute Condition: GOOD
[2017-11-25 22:07] LABS: BASO # 0.04 K/mm3 (0.0-2.0); BASO % 0.4 % (0.0-3.0); EOS # 0.3 (0.0-0.7); EOS % 2.8 % (1.5-5.0); GRAN # 4.28 (1.4-6.5); HEMOGLOBIN 15.7 g/dL (14.0-18.0); LYMPH # 3.3 (1.2-3.4); LYMPH % 36.5 % (22.0-35.0); MEAN CORPUSCULAR HEMOGLOBIN 28.9 pg (25.0-35.0); MEAN CORPUSCULAR HGB CONC 34.4 g/dl (31.0-37.0); MEAN PLATELET VOLUME 10.5 fl (7.0-11.0); MONO # 1.1 (0.1-0.6); MONO % 12.3 % (1.0-6.0); RBC 5.43 10^6/uL (3.5-6.1); RED CELL DISTRIBUTION WIDTH 14.4 % (11.5-14.5); WHITE BLOOD COUNT 8.9 10^3/ul (4.5-11.0)
[2017-11-25 22:19] LABS: ACETAMINOPHEN < 10.0 ug/ml (10.0-20.0); ALBUMIN 4.5 g/dL (3.0-4.8); ALT/SGPT 40 U/L (7-56); AST/SGOT 43 U/L (17-59); BLOOD UREA NITROGEN 17 mg/dL (7-21); CALCIUM 9.5 mg/dL (8.4-10.5); GFR NON-AFRICAN AMERICAN 52; SALICYLATE < 1 mg/dL (2.0-20.0)
[2017-11-25 23:52] LABS: B-TYPE NATRIURETIC PEPTIDE 235 pg/mL (0-450); TROPONIN I < 0.01 ng/mL
[2017-11-26 03:24] LABS: PH,URINE 5.5 (4.7-8.0); URINE BILIRUBIN NEGATIVE (NEGATIVE); URINE BLOOD NEGATIVE (NEGATIVE); URINE GLUCOSE (UA) NEGATIVE (NEGATIVE); URINE LEUKOCYTE ESTERASE NEGATIVE Leu/uL (NEGATIVE); URINE PROTEIN NEGATIVE mg/dL (<30 mg/dL); URINE UROBILINOGEN 0.2 E.U./dL (<1 E.U./dL)
[2017-11-26 03:26] LABS: URINE APPEARANCE CLEAR (CLEAR); URINE COLOR YELLOW (YELLOW)
[2017-11-26 03:50] LABS: BARBITURATES, UR NEGATIVE (NEGATIVE); BENZODIAZEPINES, UR POSITIVE (NEGATIVE); OPIATES, UR NEGATIVE (NEGATIVE); PHENCYCLIDINE, UR NEGATIVE (NEGATIVE)
--- NOTE | 2017-11-26 07:03 | CP.PCM.HP ---
<Abby Li - Last Filed: 11/26/17 07:58> History of Present Illness - History of Present Illness History of Present Illness: 57 yo male PMHx HTN, COPD, CVA 2014, HCV, heroin and tobacco abuse presents with complaints of depression and anxiety worsening over the past 3 days. Patient denies any suicidal ideations/homicidal ideations/visual hallucinations/ auditory hallucinations. Patient denies any recent inciting factors exacerbation his symptoms. He reported using 4-5 bags heroin the day prior to admission after being clean for several weeks and is seeking help from a psychiatrist so as to not revert to drug abuse, He complained of some intermittent chest pain, 8/10 in intensity, sharp in nature, located "away from the heart" on his chest wall with no radiation. He reported the "chest pain isn' t my heart." He also admitted to some hot flashes the night prior when having anxiety. Patient also complained of b/l leg swelling but no leg pain/warmth/ skin changes. He denied any fever, chills, headache, dizziness, palpitations, SOB, cough, abd pain, nausea, vomiting, bowel/bladder complaints, pain in his legs b/l. PMHx: Hypertension, CVA, HCV, heroin abuse SurgHx: Denies All: Penicillin FamHx: Non-contributory Meds: Reviewed SocHx: Admits to tobacco use, alcohol use, and heroin use - snorts, did use IV in the past PMD: Dr. Baxter Pharmacy: [facility] Present on Admission - Present on Admission Any Indicators Present on Admission: No Review of Systems - Review of Systems All systems: reviewed and no additional remarkable complaints except Review of Systems: as per HPI Past Patient History - Infectious Disease Hx of Infectious Diseases: None - Past Medical History & Family History Past Medical History?: Yes - Past Social History Smoking Status: Light Smoker < 10 Cigarettes Daily - CARDIAC Hx Cardiac Disorders: Yes Hx Hypertension: Yes - PULMONARY Hx Respiratory Disorders: Yes Hx Chronic Obstructive Pulmonary Disease (COPD): Yes Hx Emphysema: Yes - NEUROLOGICAL Hx Neurological Disorder: Yes HX Cerebrovascular Accident: Yes - HEENT Hx HEENT Problems: No - RENAL Hx Chronic Kidney Disease: No - ENDOCRINE/METABOLIC Hx Endocrine Disorders: No - HEMATOLOGICAL/ONCOLOGICAL Hx Blood Disorders: No - INTEGUMENTARY Hx Dermatological Problems: No - MUSCULOSKELETAL/RHEUMATOLOGICAL Hx Musculoskeletal Disorders: Yes Hx Back Pain: Yes - GASTROINTESTINAL Hx Gastrointestinal Disorders: No - GENITOURINARY/GYNECOLOGICAL Hx Genitourinary Disorders: No - PSYCHIATRIC Hx Psychophysiologic Disorder: Yes Hx Anxiety: Yes Hx Bipolar Disorder: Yes Hx Depression: Yes Hx Substance Use: Yes - SURGICAL HISTORY Hx Cardiac Catheterization: Yes - ANESTHESIA Hx Anesthesia: No Meds Allergies/Adverse Reactions: Allergies Allergy/AdvReac Type Severity Reaction Status Date / Time Penicillins Allergy RASH Verified 11/25/17 20:18 Physical Exam - Constitutional Appears: Non-toxic, No Acute Distress, Unkempt - Head Exam Head Exam: ATRAUMATIC, NORMAL INSPECTION, NORMOCEPHALIC - Eye Exam Eye Exam: EOMI, Normal appearance, PERRL. absent: Conjunctival injection, Scleral icterus Pupil Exam: NORMAL ACCOMODATION - ENT Exam ENT Exam: Mucous Membranes Moist - Neck Exam Neck exam: Positive for: Full Rom. Negative for: Lymphadenopathy - Respiratory Exam Respiratory Exam: Clear to Auscultation Bilateral, NORMAL BREATHING PATTERN. absent: Accessory Muscle Use, Rales, Rhonchi, Wheezes, Respiratory Distress - Cardiovascular Exam Cardiovascular Exam: +S1, +S2. absent: Systolic Murmur - GI/Abdominal Exam GI & Abdominal Exam: Normal Bowel Sounds, Soft. absent: Firm, Guarding, Rigid, Tenderness - Rectal Exam Rectal Exam: Deferred - Extremities Exam Extremities exam: Positive for: normal capillary refill, normal inspection, pedal pulses present. Negative for: pedal edema - Neurological Exam Neurological exam: Alert, Oriented x3 - Psychiatric Exam Psychiatric exam: Anxious, Depressed - Skin Skin Exam: Dry, Intact Results - Vital Signs Recent Vital Signs: Last Vital Signs Temp 98.0 F 11/26/17 06:58 Pulse 62 11/26/17 06:58 Resp 17 11/26/17 06:58 BP 130/86 11/26/17 06:58 Pulse Ox 96 11/26/17 06:58 - Labs Result Diagrams: 11/25/17 21:49 11/25/17 21:49 Assessment & Plan - Assessment and Plan (Free Text) Assessment: 57 yo male PMHx HTN, COPD, CVA 2014, HCV, heroin and tobacco abuse presents with complaints of depression and anxiety worsening over the past 3 days. In the ER patient later complained of some chest pain. Patient to be admitted to [facility]-Obs Chest pain r/o ACS -EKG reviewed- sinus 57bpm and NSSTS changes -troponin neg x 1 f/u trop x 2 -patient had an Echo in August 2016 which was unremarkable- will defer to cardio regarding ordering repeat in light of new T wave inversions noted on EKG -ASA, statin, lisinopril, and norvasc -Cardio consult Anxiety/Depression -restart home meds Paxil and Seroquel -Psych consult COPD -Duoneb and Spiriva -CT chest w/o contrast - f/u official read B/l Leg swelling -f/u venous dopplers GI ppx: pepcid 20mg bid DVT ppx: Heparin 5000u q12 Diet: HHD Dispo: TELE-Obs Discussed with Dr. Joseph Li PGY2 <Naren Ruiz - Last Filed: 11/26/17 14:18> Results - Vital Signs Recent Vital Signs: Last Vital Signs Temp 97.0 F L 11/26/17 09:14 Pulse 63 11/26/17 09:14 Resp 17 11/26/17 09:14 BP 127/85 11/26/17 12:00 Pulse Ox 99 11/26/17 09:14 - Labs Result Diagrams: 11/26/17 10:00 11/26/17 10:00 Labs: Laboratory Results - last 24 hr 11/26/17 11/26/17 11/26/17 07:00 10:00 10:00 WBC 7.2 RBC 5.14 Hgb 14.9 Hct 43.3 MCV 84.2 MCH 29.0 MCHC 34.4 RDW 14.2 Plt Count 158 MPV 10.2 Gran % 46.7 L Lymph % (Auto) 34.7 Door % (Auto) 15.5 H Eos % (Auto) 2.8 Baso % (Auto) 0.3 Gran # 3.35 Lymph # (Auto) 2.5 Door # (Auto) 1.1 H Eos # (Auto) 0.2 Baso # (Auto) 0.02 Sodium 140 Potassium 4.0 Chloride 101 Carbon Dioxide 27 Anion Gap 16 BUN 15 Creatinine 1.1 Est GFR ( Amer) > 60 Est GFR (Non-Af Amer) > 60 Random Glucose 121 H Calcium 9.3 Total Bilirubin 0.7 AST 51 ALT 43 Alkaline Phosphatase 93 Troponin I < 0.01 < 0.01 NT-Pro-B Natriuret Pep 102 Total Protein 8.2 Albumin 4.2 Globulin 4.0 Albumin/Globulin Ratio 1.1 11/26/17 13:00 WBC RBC Hgb Hct MCV MCH MCHC RDW Plt Count MPV Gran % Lymph % (Auto) Door % (Auto) Eos % (Auto) Baso % (Auto) Gran # Lymph # (Auto) Door # (Auto) Eos # (Auto) Baso # (Auto) Sodium Potassium Chloride Carbon Dioxide Anion Gap BUN Creatinine Est GFR ( Amer) Est GFR (Non-Af Amer) Random Glucose Calcium Total Bilirubin AST ALT Alkaline Phosphatase Troponin I < 0.01 NT-Pro-B Natriuret Pep Total Protein Albumin Globulin Albumin/Globulin Ratio Attending/Attestation - Attestation I have personally seen and examined this patient.: Yes I have fully participated in the care of the patient.: Yes I have reviewed all pertinent clinical information: Yes Notes (Text): 11/26/17 14:14 57 year old male with past medical history of hypertension, CVA, substance abuse and depression who presented with complaint of intermittent chest pain and depression. EKG showed new TWI compared to prior EKG. He is on aspirin, statin, and lisinopril. Will obtain serial cardiac enzymes to rule out ACS. Cardiology evaluation is requested. Recent echocardiogram was reviewed. Will follow up on LE dopplers and CT chest done earlier today. Home medications for anxiety and depression are resumed and psychiatry evaluation is requested. Naren Ruiz MD Hospitalist.
[2017-11-26] MEDS ORDERED: Albuterol-Ipratrop 3 mg / 0.5 (3 ml) UD IH PRN (07:30)
[2017-11-26 10:15] LABS: ALB/GLOB RATIO 1.1 (1.1-1.8); ALBUMIN 4.2 g/dL (3.0-4.8); ALT/SGPT 43 U/L (7-56); AST/SGOT 51 U/L (17-59); BLOOD UREA NITROGEN 15 mg/dL (7-21); CALCIUM 9.3 mg/dL (8.4-10.5); GFR NON-AFRICAN AMERICAN > 60
[2017-11-26 10:27] LABS: B-TYPE NATRIURETIC PEPTIDE 102 pg/mL (0-450); TROPONIN I < 0.01 ng/mL
[2017-11-26 10:36] LABS: BASO # 0.02 K/mm3 (0.0-2.0); BASO % 0.3 % (0.0-3.0); EOS # 0.2 (0.0-0.7); EOS % 2.8 % (1.5-5.0); GRAN # 3.35 (1.4-6.5); GRAN % 46.7 % (50.0-68.0); HEMOGLOBIN 14.9 g/dL (14.0-18.0); LYMPH # 2.5 (1.2-3.4); LYMPH % 34.7 % (22.0-35.0); MEAN CELL VOLUME 84.2 fl (80.0-105.0); MEAN CORPUSCULAR HGB CONC 34.4 g/dl (31.0-37.0); MEAN PLATELET VOLUME 10.2 fl (7.0-11.0); MONO # 1.1 (0.1-0.6); MONO % 15.5 % (1.0-6.0); RBC 5.14 10^6/uL (3.5-6.1); RED CELL DISTRIBUTION WIDTH 14.2 % (11.5-14.5); WHITE BLOOD COUNT 7.2 10^3/ul (4.5-11.0)
[2017-11-26] MEDS: Tiotropium 18 mcg Cap For Inhalation IH SCH (11:58)
--- NOTE | 2017-11-26 13:44 | CARD ---
APPROVED REPORT EKG Measurement Heart [id number] <Conclusion> Sinus bradycardia Possible Left atrial enlargement Left axis deviation ST & T wave abnormality, consider anterior ischemia Prolonged QT Abnormal ECG
--- NOTE | 2017-11-26 14:24 | CT ---
PROCEDURE: CT Chest without contrast HISTORY: possible infiltrate COMPARISON: Comparison made with prior chest radiograph dated 11/25/2017 TECHNIQUE: Contiguous axial images were obtained through the chest without intravenous contrast enhancement. Sagittal and coronal reconstructions were performed. Radiation dose (DLP): 739.62 mGy-cm. This CT exam was performed using one or more of the following dose reduction techniques: Automated exposure control, adjustment of the mA and/or kV according to patient size, and/or use of iterative reconstruction technique. FINDINGS: LUNGS: Diffuse ground-glass/mosaic appearing opacities seen throughout the upper lobes and less of the lower lobes. . Questionable early developing upper lobe alveolar-type infiltrates. Rule out air trapping, diffuse pneumonitis, pulmonary arterial hypertension or possibly mild early pulmonary edema. Clinical correlation recommended. Few scattered nodular opacities are also seen in the left upper lobe. . Small nodular density also noted posterolateral aspect right upper lobe seen on axial image number [id number]. Follow-up CT scan in 6 months recommended to assess stability. MEDIASTINUM: Heart size is normal. There is a small pericardial effusion. Ascending thoracic aorta measures approximately 3.6 cm and descending thoracic aorta measures approximately 3.2 cm. Pulmonary trunk measures approximately 3.75 cm ; rule out underlying pulmonary arterial hypertension. . Few small nonspecific mediastinal lymph nodes. Evaluation for hilar adenopathy limited due to the lack of circulating intravenous contrast material. Central airways midline and patent. No large central endoluminal lesions. PLEURA: No pleural fluid. No pneumothorax. BONES: Mild multilevel degenerative spondylosis of the thoracic spine. No acute compression fractures no retropulsed fragments UPPER ABDOMEN: The liver is diminutive and exhibits nodular surface contour consistent with underlying cirrhosis. Clinical correlation recommended. Pancreas appears atrophic and fatty replaced. OTHER FINDINGS: None. IMPRESSION: Diffuse ground-glass/mosaic appearing opacities seen throughout the upper lobes and less of the lower lobes. . Questionable early developing upper lobe alveolar-type infiltrates. Rule out air trapping, diffuse pneumonitis, pulmonary arterial hypertension or possibly mild early pulmonary edema. Clinical correlation recommended. Few scattered nodular opacities are also seen in the left upper lobe. . Small nodular density also noted posterolateral aspect right upper lobe seen on axial image number [id number]. Follow-up CT scan in 6 months recommended to assess stability. Small pericardial effusion. Mild dilatation pulmonary trunk again ; rule out pulmonary arterial hypertension The liver is diminutive and exhibits nodular surface contour consistent with underlying cirrhosis. Clinical correlation recommended.
--- NOTE | 2017-11-26 15:56 | RAD ---
HISTORY: cp COMPARISON: Comparison made with chest radiographs 08/16/2017 FINDINGS: LUNGS: Diffuse bilateral alveolar-type appearing infiltrates. Rule out pulmonary edema/ CHF versus pneumonia. PLEURA: No significant pleural effusion identified, no pneumothorax apparent. CARDIOVASCULAR: Heart appears enlarged OSSEOUS STRUCTURES: No significant abnormalities. VISUALIZED UPPER ABDOMEN: Normal. OTHER FINDINGS: None. IMPRESSION: Diffuse bilateral alveolar-type appearing infiltrates. Rule out pulmonary edema/ CHF versus pneumonia. Cardiomegaly
--- NOTE | 2017-11-26 17:47 | US ---
HISTORY: Leg pain and swelling. Evaluate for DVT PHYSICIAN(S): Ayush Betancourt MD. TECHNIQUE: Duplex sonography and color-flow Doppler with graded compression were used to evaluate the deep venous systems of both lower extremities. FINDINGS: The visualized deep venous systems of both lower extremities are sonographically normal and compressible. Normal wave forms and augmentation are seen. There is no sonographic evidence for deep venous thrombosis in the visualized segments of both lower extremities. IMPRESSION: No sonographic evidence for deep venous thrombosis in the visualized segments of both lower extremities.
[2017-11-26] MEDS: Azithromycin 500MG/NS 250ml 500 MG/250 ML BAG IVPB SCH (18:14)
[2017-11-26] MEDS: cefTRIAXone 1 gm 1 GM/100 ML BAG IVPB SCH (18:15)
[2017-11-26] MEDS ORDERED: PAROXETINE HCL 10 MG PO SCH (22:00)
--- NOTE | 2017-11-27 03:56 | CON ---
DATE: 11/26/2017 REASON FOR DICTATION: Covering Dr. Kc. REASON FOR CONSULTATION: Chest pain. BRIEF CLINICAL HISTORY: This is a 57-year-old male with a past medical history of COPD, hypertension, CVA in 2014, hepatitis C, substance abuse, history of psychiatric disorder, came in with complaint of depression, anxiety and one episode of chest pain possibly, he thinks that he pulled the muscles. Denies any chest pain now. PAST HISTORY: Significant for hypertension, CVA, hepatitis C, and substance abuse. SOCIAL HISTORY: Tobacco half a pack a day. Alcohol abuse as well as heroin and substance abuse. Also history of IV drug abuse in the past. CURRENT MEDICATIONS: Patient is using furosemide, aspirin, lisinopril, amlodipine, Seroquel and Spiriva. ALLERGIES: ALLERGY TO PENICILLIN. REVIEW OF SYSTEMS: As per HPI. RECENT CARDIAC WORKUP: Patient is scheduled for a stress test and echo by Dr. Salmeron's office on 12/14/2017. PHYSICAL EXAMINATION: VITAL SIGNS: As follows: Height of the patient is 5 feet 9 inches, weight of the patient is 234, body mass index 34.6 kg/m2. Rest of the vitals, temperature afebrile, heart rate 63, blood pressure 127/85. HEENT: PERRLA. Extraocular muscles intact. NECK: Supple. No carotid bruit or thyromegaly. CHEST: Clear to auscultation. HEART: S1 and S2 regular. ABDOMEN: Soft. EXTREMITIES: Clubbing, cyanosis negative. LABORATORY DATA: Blood workup as follows: WBC 7.8, hemoglobin 14.2, hematocrit 43.3, platelet count 158. Chemistry showed sodium 140, potassium 4, chloride 101, carbon dioxide 27, anion gap of 16, BUN 15, creatinine 1.1. EKG shows normal sinus T inversion in anterior lead. So far, troponin remains . IMPRESSION: A 57-year-old male with past medical history significant for depression, psychiatric disorder, history of substance abuse, obesity, cerebrovascular accident, admitted with depression, abnormal EKG. Patient is scheduled for a stress test and echo as outpatient by PMD. So far, no evidence of acute myocardial infarction. RECOMMENDATION: Get lipid profile, TSH, hemoglobin A1c. Strongly suggest the patient to continue with the PMD and schedule for a stress test on 12/14/[address] Salmeron's office. We will transfer the care tomorrow to Dr. Kc. So far, no evidence of acute UT. We will get lipid profile, TSH, hemoglobin A1c. Thank you, Dr. Ruiz for providing us the opportunity in taking care of the patient, Christopher Lomeli. Suzanne Mcdonald MD
[2017-11-27 07:17] LABS: BASO # 0.02 K/mm3 (0.0-2.0); BASO % 0.3 % (0.0-3.0); EOS # 0.2 (0.0-0.7); EOS % 2.8 % (1.5-5.0); GRAN # 3.23 (1.4-6.5); GRAN % 49.6 % (50.0-68.0); HEMOGLOBIN 15.6 g/dL (14.0-18.0); LYMPH # 2.3 (1.2-3.4); LYMPH % 34.7 % (22.0-35.0); MEAN CELL VOLUME 83.1 fl (80.0-105.0); MEAN CORPUSCULAR HEMOGLOBIN 28.9 pg (25.0-35.0); MEAN CORPUSCULAR HGB CONC 34.8 g/dl (31.0-37.0); MEAN PLATELET VOLUME 10.9 fl (7.0-11.0); MONO # 0.8 (0.1-0.6); MONO % 12.6 % (1.0-6.0); RBC 5.39 10^6/uL (3.5-6.1); RED CELL DISTRIBUTION WIDTH 14.4 % (11.5-14.5); WHITE BLOOD COUNT 6.5 10^3/ul (4.5-11.0)
[2017-11-27 07:29] LABS: ALBUMIN 4.2 g/dL (3.0-4.8); ALT/SGPT 41 U/L (7-56); AST/SGOT 44 U/L (17-59); BLOOD UREA NITROGEN 17 mg/dL (7-21); CALCIUM 9.3 mg/dL (8.4-10.5); GFR NON-AFRICAN AMERICAN > 60; HDL CHOLESTEROL 44 mg/dL (29-60)
[2017-11-27 07:39] LABS: LDL CHOLESTEROL 75 mg/dL (0-129)
[2017-11-27] MEDS: cefTRIAXone 1 gm 1 GM/100 ML BAG IVPB SCH (09:19)
[2017-11-27] MEDS: Azithromycin 500MG/NS 250ml 500 MG/250 ML BAG IVPB SCH (09:20)
[2017-11-27] MEDS: Tiotropium 18 mcg Cap For Inhalation IH SCH (09:20)
[2017-11-27 10:09] LABS: T4 9.6 ug/dL (5.5-11.0)
[2017-11-27 10:22] LABS: T3 1.05 ng/mL (0.97-1.69)
--- NOTE | 2017-11-27 15:33 | PN ---
DATE: 11/27/2017 SUBJECTIVE: The patient denies chest pain. OBJECTIVE: VITAL SIGNS: Blood pressure 140/97, heart rate 71, temperature 96.3. HEENT: Normocephalic. CHEST: Clear. HEART: S1 and S2, regular. EXTREMITIES: No edema. LABORATORY DATA: Urine drug screen was positive for benzodiazepines. Today's SMA-7 is entirely within normal limits. Four sets of troponin's are negative. Today's hemoglobin and hematocrit, white count, and platelet count are within normal limits. Echocardiography study in 10/2015, revealed normal ejection fraction with diastolic dysfunction. ASSESSMENT: 1. Chest pain, myocardial infarction is ruled out. 2. History of depression. 3. Abnormal EKG with evidence of anterior ischemia. RECOMMENDATIONS: Continue current aspirin, subcutaneous heparin, Norvasc, Paxil, IV Rocephin, and oral Zithromax. Obtain stat . Johnny Kc MD
--- NOTE | 2017-11-27 16:22 | CP.PCM.PN ---
<GirishcamilleIhsan - Last Filed: 11/28/17 09:53> Subjective - Date & Time of Evaluation Date of Evaluation: 11/27/17 Time of Evaluation: 16:12 - Subjective Subjective: Patient seen and evaluated this AM. No acute events reported overnight. Patient indicates some difficulty with breathing. Patient denies fever, chills, chest pain, abdominal pain. Objective - Vital Signs/Intake and Output Vital Signs (last 24 hours): Temp Pulse Resp BP Pulse Ox 96.3 F L 72 20 140/97 H 97 11/27/17 08:02 11/27/17 14:00 11/27/17 08:02 11/27/17 09:20 11/27/17 08:02 Intake and Output: 11/27/17 11/27/17 06:59 18:59 Intake Total 900 Output Total 1800 Balance -900 - Medications Medications: Current Medications Amlodipine Besylate (Norvasc) 10 mg PO DAILY [facility] Last Admin: 11/27/17 09:18 Dose: 10 mg Aspirin (Ecotrin) 81 mg PO DAILY [facility] Last Admin: 11/27/17 09:16 Dose: 81 mg Azithromycin (Zithromax) 500 mg PO DAILY [facility] Famotidine (Pepcid) 20 mg PO 1000,2200 [facility] Last Admin: 11/27/17 09:19 Dose: 20 mg Furosemide (Lasix) 40 mg PO DAILY [facility] Heparin Sodium (Porcine) (Heparin) 5,000 units SC Q12 [facility] PRN Reason: Protocol Last Admin: 11/27/17 09:16 Dose: 5,000 units Ceftriaxone Sodium (Rocephin 1 Gram Ivpb) 1 gm in 100 mls @ 100 mls/hr IVPB DAILY [facility] PRN Reason: Protocol Last Admin: 11/27/17 09:19 Dose: 100 mls/hr Lisinopril (Zestril) 10 mg PO DAILY [facility] Last Admin: 11/27/17 09:20 Dose: 10 mg Paroxetine HCl (Paxil) 10 mg PO HS [facility] Last Admin: 11/26/17 22:55 Dose: 10 mg Quetiapine Fumarate (Seroquel) 100 mg PO HS [facility] PRN Reason: Protocol Last Admin: 11/26/17 22:55 Dose: 100 mg Tiotropium [place] (Spiriva) 18 mcg IH DAILY [facility] Last Admin: 11/27/17 09:20 Dose: 18 mcg - Labs Labs: 11/27/17 07:01 11/27/17 07:01 - Constitutional Appears: Non-toxic, No Acute Distress - Head Exam Head Exam: ATRAUMATIC, NORMAL INSPECTION, NORMOCEPHALIC - Eye Exam Eye Exam: EOMI, PERRL - Respiratory Exam Respiratory Exam: Rales (left>right base), Wheezes (right side ) - Cardiovascular Exam Cardiovascular Exam: REGULAR RHYTHM, +S1, +S2 - GI/Abdominal Exam GI & Abdominal Exam: Soft, Normal Bowel Sounds - Extremities Exam Extremities Exam: Full ROM. absent: Calf Tenderness, Tenderness - Neurological Exam Neurological Exam: Alert, Awake, Normal Gait, Oriented x3 Neuro motor strength exam: Left Upper Extremity: 5, Right Upper Extremity: 5, Left Lower Extremity: 5, Right Lower Extremity: 5 - Psychiatric Exam Psychiatric exam: Normal Mood - Skin Skin Exam: Dry, Warm Assessment and Plan - Assessment and Plan (Free Text) Assessment: 57 yo male PMHx HTN, COPD, CVA 2013, HCV, heroin and tobacco abuse presented with complaints of depression and anxiety worsening over the past 3 days. Patient admitted to [facility] for chest pain and shortness of breath Plan: Chest Pain r/o ACS - EKG: NSR 57 bpm, NSSTS chagnes - Troponin negative x 3 - Echo 08/2016 - ASA, statin, lisinopril, norvasc - Cardiology consulted, f/u recs - lipid profile, TSH low T4 normal, stress test scheduled 12/14/2017 CHF congestion - CXR CHF congestion, fluid on lung exam - Increase his lasix at this time COPD -Duoneb, Spiriva -CT chest w/o contrast showing ground-glass/mosaic opacities seen throughout the upper lobes and less of the lower lobes, few scattered nodular opacities are also seen in the left upper lobe, small nodular density noted posterolateral aspect RUL. Recommending Follow up CT scan in 6 months. Anxiety/Depression - Paxil and Seroquel - Psychiatry consulted, appreciate recs GI/DVT ppx - Pepcid 20mg BID - Heparin 5000 Q8H Dispo: Patient to follow up with PMD upon discharge Case and plan discussed with attending <Suzanne Moody - Last Filed: 11/28/17 16:55> Objective - Vital Signs/Intake and Output Vital Signs (last 24 hours): Temp Pulse Resp BP Pulse Ox 97.1 F L 90 20 148/90 92 L 11/28/17 07:38 11/28/17 14:00 11/28/17 07:38 11/28/17 09:15 11/28/17 07:38 - Medications Medications: Current Medications Amlodipine Besylate (Norvasc) 10 mg PO DAILY [facility] Last Admin: 11/28/17 09:14 Dose: 10 mg Aspirin (Ecotrin) 81 mg PO DAILY [facility] Last Admin: 11/28/17 09:12 Dose: 81 mg Clopidogrel Bisulfate (Plavix) 75 mg PO DAILY [facility] Last Admin: 11/28/17 13:15 Dose: 75 mg Famotidine (Pepcid) 20 mg PO 1000,2200 [facility] Last Admin: 11/28/17 09:14 Dose: 20 mg Furosemide (Lasix) 40 mg PO DAILY [facility] Last Admin: 11/28/17 09:13 Dose: 40 mg Heparin Sodium (Porcine) (Heparin) 5,000 units SC Q12 [facility] PRN Reason: Protocol Last Admin: 11/28/17 09:12 Dose: 5,000 units Ceftriaxone Sodium (Rocephin 1 Gram Ivpb) 1 gm in 100 mls @ 100 mls/hr IVPB DAILY [facility] PRN Reason: Protocol Last Admin: 11/28/17 09:14 Dose: 100 mls/hr Lisinopril (Zestril) 10 mg PO DAILY [facility] Last Admin: 11/28/17 09:15 Dose: 10 mg Paroxetine HCl (Paxil) 10 mg PO [facility] Last Admin: 11/27/17 21:58 Dose: 10 mg Quetiapine Fumarate (Seroquel) 100 mg PO [facility] PRN Reason: Protocol Last Admin: 11/27/17 21:58 Dose: 100 mg Tiotropium [place] (Spiriva) 18 mcg IH DAILY [facility] Last Admin: 11/28/17 09:15 Dose: 18 mcg Attending/Attestation - Attestation I have personally seen and examined this patient.: Yes I have fully participated in the care of the patient.: Yes I have reviewed all pertinent clinical information, including history, physical exam and plan: Yes Notes (Text): 11/28/17 16:46 Medical record note made by the resident after discussion with my direction and input after the patient was personally seen and examined by me. I have reviewed the chart and agree that the record accurately reflects by personal performance of the history, physical exam, data review, and medical decision-making, in the course for the patient. I have also personally directed the plan of care. 57 yo male PMHx HTN, COPD, CVA 2013, HCV, heroin and tobacco abuse t admitted to tele for chest pain and shortness of breath. Patietn with three negative troponin bu EKG with t wave inversions, Patient is pain free, case was discussed with Cardiology, we will get 2D Echo. Chest X rays showed Pulmonary congestion, we will start patient on IV lasix.We will follow up Echo. Ground glass opacities on CT chest, Possible Pneumonia could be congestion , on IV antibiotics, will follow cultures and Procalcitonin. Psychiatry evaluation is appreciated.Patient will be discharged to Psychiatry once the work up is complete. 11/28/17 16:49
--- NOTE | 2017-11-27 16:50 | RAD ---
HISTORY: COMPARISON: 11/25/2017 TECHNIQUE: Chest PA and lateral FINDINGS: LINES AND TUBES: None. LUNG AND PLEURA: There is interval improved aeration in both lungs with near complete resolution of pulmonary edema. There is moderate pulmonary venous congestion. HEART AND MEDIASTINUM: This persistent cardiomegaly and prominent central vasculature. The hilar and mediastinal contours are within normal limits. SKELETAL STRUCTURES: The bony structures are within normal limits for the patient's age. VISUALIZED UPPER ABDOMEN: Normal. OTHER FINDINGS: None. IMPRESSION: Interval significant improvement in congestive heart
--- NOTE | 2017-11-27 22:35 | CARD ---
APPROVED REPORT EKG Measurement Heart [id number] <Conclusion> Normal sinus rhythm Possible Left atrial enlargement Left axis deviation ST & T wave abnormality, consider anterior ischemia Prolonged QT Abnormal ECG
[2017-11-28 06:23] LABS: BASO # 0.01 K/mm3 (0.0-2.0); BASO % 0.1 % (0.0-3.0); EOS # 0.1 (0.0-0.7); EOS % 1.9 % (1.5-5.0); GRAN # 4.43 (1.4-6.5); GRAN % 58.9 % (50.0-68.0); HEMOGLOBIN 15.8 g/dL (14.0-18.0); LYMPH # 2.2 (1.2-3.4); LYMPH % 28.8 % (22.0-35.0); MEAN CELL VOLUME 82.5 fl (80.0-105.0); MEAN CORPUSCULAR HEMOGLOBIN 29.2 pg (25.0-35.0); MEAN CORPUSCULAR HGB CONC 35.3 g/dl (31.0-37.0); MEAN PLATELET VOLUME 10.6 fl (7.0-11.0); MONO # 0.8 (0.1-0.6); MONO % 10.3 % (1.0-6.0); RBC 5.42 10^6/uL (3.5-6.1); RED CELL DISTRIBUTION WIDTH 14.4 % (11.5-14.5); WHITE BLOOD COUNT 7.5 10^3/ul (4.5-11.0)
[2017-11-28 06:49] LABS: ALBUMIN 4.2 g/dL (3.0-4.8); ALT/SGPT 38 U/L (7-56); AST/SGOT 44 U/L (17-59); BLOOD UREA NITROGEN 16 mg/dL (7-21); CALCIUM 9.4 mg/dL (8.4-10.5); GFR NON-AFRICAN AMERICAN > 60
[2017-11-28] MEDS: cefTRIAXone 1 gm 1 GM/100 ML BAG IVPB SCH (09:14)
[2017-11-28] MEDS: Tiotropium 18 mcg Cap For Inhalation IH SCH (09:15)
--- NOTE | 2017-11-28 12:33 | CP.PCM.PN ---
<Ihsan Pires - Last Filed: 11/28/17 14:15> Subjective - Date & Time of Evaluation Date of Evaluation: 11/28/17 Time of Evaluation: 07:30 - Subjective Subjective: Patient seen and evaluated. No acute events reported overnight. Patient reports some issue with breathing. Denies chest pain, abdominal pain, nausea, vomiting, diarrhea, fever, weakness. Objective - Vital Signs/Intake and Output Vital Signs (last 24 hours): Temp Pulse Resp BP Pulse Ox 97.1 F L 79 20 148/90 92 L 11/28/17 07:38 11/28/17 10:00 11/28/17 07:38 11/28/17 09:15 11/28/17 07:38 Intake and Output: 11/28/17 11/28/17 06:59 18:59 Intake Total 780 Output Total 750 Balance 30 - Medications Medications: Current Medications Amlodipine Besylate (Norvasc) 10 mg PO DAILY [facility] Last Admin: 11/28/17 09:14 Dose: 10 mg Aspirin (Ecotrin) 81 mg PO DAILY [facility] Last Admin: 11/28/17 09:12 Dose: 81 mg Azithromycin (Zithromax) 500 mg PO DAILY [facility] Last Admin: 11/28/17 09:15 Dose: 500 mg Clopidogrel Bisulfate (Plavix) 75 mg PO DAILY [facility] Famotidine (Pepcid) 20 mg PO 1000,2200 [facility] Last Admin: 11/28/17 09:14 Dose: 20 mg Furosemide (Lasix) 40 mg PO DAILY [facility] Last Admin: 11/28/17 09:13 Dose: 40 mg Heparin Sodium (Porcine) (Heparin) 5,000 units SC Q12 [facility] PRN Reason: Protocol Last Admin: 11/28/17 09:12 Dose: 5,000 units Ceftriaxone Sodium (Rocephin 1 Gram Ivpb) 1 gm in 100 mls @ 100 mls/hr IVPB DAILY [facility] PRN Reason: Protocol Last Admin: 11/28/17 09:14 Dose: 100 mls/hr Lisinopril (Zestril) 10 mg PO DAILY [facility] Last Admin: 11/28/17 09:15 Dose: 10 mg Paroxetine HCl (Paxil) 10 mg PO HS [facility] Last Admin: 11/27/17 21:58 Dose: 10 mg Quetiapine Fumarate (Seroquel) 100 mg PO HS [facility] PRN Reason: Protocol Last Admin: 11/27/17 21:58 Dose: 100 mg Tiotropium God[place] (Spiriva) 18 mcg IH DAILY [facility] Last Admin: 11/28/17 09:15 Dose: 18 mcg - Labs Labs: 11/28/17 06:10 11/28/17 06:10 - Constitutional Appears: Non-toxic, No Acute Distress - Head Exam Head Exam: ATRAUMATIC, NORMAL INSPECTION, NORMOCEPHALIC - Eye Exam Eye Exam: EOMI, PERRL - Respiratory Exam Respiratory Exam: Wheezes (minimal, expiratory ), NORMAL BREATHING PATTERN. absent: Accessory Muscle Use, Chest Wall Tenderness - Cardiovascular Exam Cardiovascular Exam: REGULAR RHYTHM, +S1, +S2 - GI/Abdominal Exam GI & Abdominal Exam: Soft, Normal Bowel Sounds. absent: Tenderness - Extremities Exam Extremities Exam: Normal Capillary Refill. absent: Calf Tenderness, Tenderness - Neurological Exam Neurological Exam: Alert, Awake, Oriented x3 Neuro motor strength exam: Left Upper Extremity: 5, Right Upper Extremity: 5, Left Lower Extremity: 5, Right Lower Extremity: 5 - Psychiatric Exam Psychiatric exam: Normal Mood - Skin Skin Exam: Dry, Intact, Warm Assessment and Plan - Assessment and Plan (Free Text) Assessment: 57 yo male PMHx HTN, COPD, CVA 2013, HCV, heroin and tobacco abuse presented with complaints of depression and anxiety worsening over the past 3 days. Patient admitted to tele for chest pain and shortness of breath. Patietn with three negative troponin bu tEKG with t wave inversions, patient to go for [facility] with cardiology tomorrow Plan: Chest Pain r/o ACS - EKG: NSR 57 bpm, showing some t wave inversions - Troponin negative x 3 - Echo 08/2016 - ASA, statin, lisinopril, norvasc - Cardiology consulted, f/u recs - C tomorrow - stress test scheduled 12/14/2017 CHF congestion - CXR CHF congestion, fluid on lung exam - Continue lasix COPD -Duoneb, Spiriva -CT chest w/o contrast showing ground-glass/mosaic opacities seen throughout the upper lobes and less of the lower lobes, few scattered nodular opacities are also seen in the left upper lobe, small nodular density noted posterolateral aspect RUL. Recommending Follow up CT scan in 6 months. Anxiety/Depression - Paxil and Seroquel - Psychiatry consulted, appreciate recs Hx of HCV in setting of cirrhosis - Recommend follow up outpatient with [employer] Polysubstance abuse - Heroin and ETOH cessation counseling Hx of anxiety/depression - Psychiatry consulted - ONce patient cleared medically will go to inpatient psych unit for treatment GI/DVT ppx - Pepcid 20mg BID - Heparin 5000 Q8H Dispo: Patient to follow up with PMD upon discharge Case and plan discussed with attending <Suzanne Moody - Last Filed: 11/28/17 17:02> Objective - Vital Signs/Intake and Output Vital Signs (last 24 hours): Temp Pulse Resp BP Pulse Ox 97.1 F L 90 20 148/90 92 L 11/28/17 07:38 11/28/17 14:00 11/28/17 07:38 11/28/17 09:15 11/28/17 07:38 - Medications Medications: Current Medications Amlodipine Besylate (Norvasc) 10 mg PO DAILY [facility] Last Admin: 11/28/17 09:14 Dose: 10 mg Aspirin (Ecotrin) 81 mg PO DAILY [facility] Last Admin: 11/28/17 09:12 Dose: 81 mg Clopidogrel Bisulfate (Plavix) 75 mg PO DAILY [facility] Last Admin: 11/28/17 13:15 Dose: 75 mg Famotidine (Pepcid) 20 mg PO 1000,2200 [facility] Last Admin: 11/28/17 09:14 Dose: 20 mg Furosemide (Lasix) 40 mg PO DAILY [facility] Last Admin: 11/28/17 09:13 Dose: 40 mg Heparin Sodium (Porcine) (Heparin) 5,000 units SC Q12 [facility] PRN Reason: Protocol Last Admin: 11/28/17 09:12 Dose: 5,000 units Ceftriaxone Sodium (Rocephin 1 Gram Ivpb) 1 gm in 100 mls @ 100 mls/hr IVPB DAILY [facility] PRN Reason: Protocol Last Admin: 11/28/17 09:14 Dose: 100 mls/hr Lisinopril (Zestril) 10 mg PO DAILY [facility] Last Admin: 11/28/17 09:15 Dose: 10 mg Paroxetine HCl (Paxil) 10 mg PO HS [facility] Last Admin: 11/27/17 21:58 Dose: 10 mg Quetiapine Fumarate (Seroquel) 100 mg PO HS [facility] PRN Reason: Protocol Last Admin: 11/27/17 21:58 Dose: 100 mg Tiotropium Godd[place] (Spiriva) 18 mcg IH DAILY [facility] Last Admin: 11/28/17 09:15 Dose: 18 mcg Attending/Attestation - Attestation I have personally seen and examined this patient.: Yes I have fully participated in the care of the patient.: Yes I have reviewed all pertinent clinical information, including history, physical exam and plan: Yes Notes (Text): 11/28/17 16:55 Medical record note made by the resident after discussion with my direction and input after the patient was personally seen and examined by me. I have reviewed the chart and agree that the record accurately reflects by personal performance of the history, physical exam, data review, and medical decision-making, in the course for the patient. I have also personally directed the plan of care. 57 yo male PMHx HTN, COPD, CVA 2013, HCV, heroin and tobacco abuse t admitted to tele for chest pain and shortness of breath. Patietn with three negative troponin bu EKG with t wave inversions, Patient is pain free, case was discussed with Cardiology, Patient is for cardiac cauterization tomorrow. Chest X rays showed Pulmonary congestion, we will start patient on IV lasix.Echo showed diastolic CHF and severe Pulmonary HTN.. Ground glass opacities on CT chest, Possible Pneumonia , procalcitonin level is normal.Antibiotics can be changed to oral. Lung Nodule, will need out patient follow up in 6 month Psychiatry evaluation is appreciated.Patient will be discharged to Psychiatry once the work up is complete. 11/28/17 16:57
--- NOTE | 2017-11-28 14:00 | RAD ---
HISTORY: Follow-up COMPARISON: 11/27/2017. FINDINGS: LUNGS: The lungs are well inflated. There is severe pulmonary venous congestion. PLEURA: No significant pleural effusion identified, no pneumothorax apparent. CARDIOVASCULAR: There is mild cardiomegaly and prominent central vasculature. OSSEOUS STRUCTURES: No significant abnormalities. VISUALIZED UPPER ABDOMEN: Normal. OTHER FINDINGS: None. IMPRESSION: Mild cardiomegaly and moderate pulmonary venous congestion. No focal consolidation.
--- NOTE | 2017-11-28 16:11 | CARD ---
APPROVED REPORT EXAM: Two-dimensional and M-mode echocardiogram with Doppler and color Doppler. INDICATION Chest Pain 2D DIMENSIONS Left Atrium (2D)3.7 (1.6-4.0cm)IVSd1.1 (0.7-1.1cm) LVDd3.8 (3.9-5.9cm)PWd1.3 (0.7-1.1cm) LVDs2.1 (2.5-4.0cm)FS (%) 44.5 % LVEF (%)76.5 (>50%) M-Mode DIMENSIONS Aortic Root3.80 (2.2-3.7cm)Aortic Cusp Exc.1.90 (1.5-2.0cm) Aortic Valve AoV Peak Cvzpdrqj931.0cm/Emil Peak GR.6mmHg Mitral Valve MV E Withfxnz02.4cm/sMV A Vbtuzowf937.0cm/sE/A ratio0.5 TDI Lateral E' Peak V6.14cm/sE/Lateral E'8.0E/Medial E'0.0 Pulmonary Valve PV Peak Betugilh16.2cm/sPV Peak Grad.2mmHg Tricuspid Valve TR Peak Ddxgwtoy332kd/sRAP [id number] Peak Gr.100mmHg [id number] LEFT VENTRICLE The left ventricle is normal size. There is normal left ventricular wall thickness. The left ventricular function is normal. There is a flattened septum Transmitral Doppler flow pattern is Grade I-abnormal relaxation pattern. RIGHT VENTRICLE The right ventricle is moderately dilated., RV Systolic function is moderately reduced. There is normal right ventricular wall thickness. Systolic function is moderately reduced. ATRIA The left atrium size is normal. The right atrium is moderately dilated. AORTIC VALVE The aortic valve is not well visualized. No aortic regurgitation is present. There is no aortic valvular stenosis. MITRAL VALVE The mitral valve is normal in structure. There is no mitral valve regurgitation noted. TRICUSPID VALVE There is mild tricuspid regurgitation. There is severe pulmonary hypertension. GREAT VESSELS The aortic root is mildly enlarged. PERICARDIAL EFFUSION There is a trace circumferential pericardial effusion. <Conclusion> The left ventricle is normal size. There is normal left ventricular wall thickness. The left ventricular function is normal. There is a flattened septum Transmitral Doppler flow pattern is Grade I-abnormal relaxation pattern. The right ventricle is moderately dilated., RV Systolic function is moderately reduced. There is mild tricuspid regurgitation. There is severe pulmonary hypertension.
--- NOTE | 2017-11-28 17:04 | PN ---
DATE: 11/28/2017 SUBJECTIVE: The patient denies any chest pain. PHYSICAL EXAMINATION VITAL SIGNS: Blood pressure 148/90, heart rate 67, temperature , respiration 20. LABORATORY DATA: Today's hemoglobin, hematocrit, white count and platelet count are within normal limits. Today's SMA-7 is entirely within normal limits. Chest x-ray PA and lateral yesterday revealed interval significant improvement in the congestive heart failure. Repeat EKG yesterday revealed sinus rhythm anterior ischemic T-wave changes. Left axis deviation. ASSESSMENT: 1. Chest pain, myocardial infarction is ruled out. 2. Anterior ischemic EKG changes. 3. Depression. RECOMMENDATIONS: Case was discussed with the medical team and the patient was offered cardiac catheterization. Procedure and risks were explained. The patient agreed and is scheduled for tomorrow around 1:00 p.m. The patient will be kept n.p.o. after full breakfast. Johnny Kc MD
--- NOTE | 2017-11-29 04:13 | CON ---
DATE: 11/28/2017 HISTORY OF PRESENT ILLNESS: In short, the patient is a 57-year-old male with reported history of opioid use disorder, history of depression. The patient was admitted on the medical site for evaluation of feeling crappy. Psych consult was called for evaluation of depressive symptoms. 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 The patient reported after he was discharged from the psychiatric inpatient unit in 08/2017, the patient has continued taking medication for 2 weeks only, which found to be beneficial; after that, the patient relapsed on drugs and became more depressed, and the patient had passive suicidal thoughts. Patient reported that last week, he relapsed on heroin and he was going "downhill." As a result, patient has a lot of somatic complaints, physical complaints which brought the patient to the hospital. The patient reported that he wants to go back on the medication and wants to get better and possible inpatient rehab. VITAL SIGNS: Stable. MEDICATIONS: Reviewed. Paxil 10 mg at the nighttime, Seroquel 100 mg at the nighttime, was resumed by medical team. LABORATORY DATA: Labs reviewed. Coagulation reviewed. Chemistry reviewed. Urinalysis reviewed. Positive benzodiazepines at the time of admission, but no opioids. Case Is discussed with Dr. Moody. The patient was scheduled for cardiac lab tomorrow; after that, the patient will be cleared to go to the Psychiatry floor. MENTAL STATUS EXAM: The patient presented to be alert, oriented, somewhat depressed, tearful at times. The patient reported that he wants to get better, he wants to be productive. The patient's mood described to be as depressed and hopeless. Affect was constricted. Thought process coherent and goal directed. Thought content, the patient denied visual, auditory or tactile hallucinations. Denied paranoid ideation. The patient denied thoughts of harming himself, but wishing to be . Insight and judgment seems to be limited, but improving. Impulses are well controlled. IMPRESSION: Most likely patient has depressive episode, rule out substance-induced mood disorder, rule out adjustment disorder. PLAN: We will monitor the patient on the medical site; after clearance, most likely patient requires psych admission. The patient is willing to get better, willing to be on medications. Case was discussed with Dr. Moody. The patient requires further admission to the psych floor unless the patient will be improving on the medical site. Marielena Campos MD MTDShana
[2017-11-29 07:01] LABS: BASO # 0.03 K/mm3 (0.0-2.0); BASO % 0.4 % (0.0-3.0); EOS # 0.1 (0.0-0.7); EOS % 1.5 % (1.5-5.0); GRAN # 4.26 (1.4-6.5); GRAN % 53.1 % (50.0-68.0); HEMOGLOBIN 16.4 g/dL (14.0-18.0); LYMPH # 2.6 (1.2-3.4); LYMPH % 32.5 % (22.0-35.0); MEAN CORPUSCULAR HEMOGLOBIN 28.9 pg (25.0-35.0); MEAN CORPUSCULAR HGB CONC 35.2 g/dl (31.0-37.0); MONO % 12.5 % (1.0-6.0); RBC 5.68 10^6/uL (3.5-6.1); RED CELL DISTRIBUTION WIDTH 14.4 % (11.5-14.5)
[2017-11-29 07:16] LABS: ALBUMIN 4.3 g/dL (3.0-4.8); ALT/SGPT 38 U/L (7-56); AST/SGOT 40 U/L (17-59); BLOOD UREA NITROGEN 15 mg/dL (7-21); CALCIUM 9.6 mg/dL (8.4-10.5); GFR NON-AFRICAN AMERICAN > 60
[2017-11-29] MEDS ORDERED: Potassium Chloride 20 mEq ER Tab PO ONE (07:24)
--- NOTE | 2017-11-29 08:37 | CP.PCM.PN ---
Subjective - Date & Time of Evaluation Date of Evaluation: 11/29/17 Time of Evaluation: 08:35 - Subjective Subjective: Patient seen and evaluated this AM. No acute events reported overnight. Patient denies chest discomfort, shortness of breath, abdominal pain, nausea vomiting, fever, chills. Patient is scheduled to go for Left heart cath today. Objective - Vital Signs/Intake and Output Vital Signs (last 24 hours): Temp Pulse Resp BP Pulse Ox 97.4 F L 78 18 156/98 H 94 L 11/28/17 18:00 11/29/17 05:28 11/28/17 18:00 11/28/17 18:00 11/28/17 18:00 Intake and Output: 11/29/17 11/29/17 06:59 18:59 Intake Total 540 Balance 540 - Medications Medications: Current Medications Amlodipine Besylate (Norvasc) 10 mg PO DAILY [facility] Last Admin: 11/28/17 09:14 Dose: 10 mg Aspirin (Ecotrin) 81 mg PO DAILY [facility] Last Admin: 11/28/17 09:12 Dose: 81 mg Clopidogrel Bisulfate (Plavix) 75 mg PO DAILY [facility] Last Admin: 11/28/17 13:15 Dose: 75 mg Famotidine (Pepcid) 20 mg PO 1000,2200 [facility] Last Admin: 11/28/17 21:59 Dose: 20 mg Furosemide (Lasix) 40 mg PO DAILY [facility] Last Admin: 11/28/17 09:13 Dose: 40 mg Heparin Sodium (Porcine) (Heparin) 5,000 units SC Q12 [facility] PRN Reason: Protocol Last Admin: 11/28/17 21:58 Dose: 5,000 units Ceftriaxone Sodium (Rocephin 1 Gram Ivpb) 1 gm in 100 mls @ 100 mls/hr IVPB DAILY [facility] PRN Reason: Protocol Last Admin: 11/28/17 09:14 Dose: 100 mls/hr Lisinopril (Zestril) 10 mg PO DAILY [facility] Last Admin: 11/28/17 09:15 Dose: 10 mg Paroxetine HCl (Paxil) 10 mg PO HS [facility] Last Admin: 11/28/17 21:59 Dose: 10 mg Quetiapine Fumarate (Seroquel) 100 mg PO HS [facility] PRN Reason: Protocol Last Admin: 11/28/17 21:59 Dose: 100 mg Tiotropium [place] (Spiriva) 18 mcg IH DAILY [facility] Last Admin: 11/28/17 09:15 Dose: 18 mcg - Labs Labs: 11/29/17 06:20 11/29/17 06:20 - Constitutional Appears: No Acute Distress - Head Exam Head Exam: ATRAUMATIC, NORMAL INSPECTION, NORMOCEPHALIC - Eye Exam Eye Exam: EOMI, PERRL - Neck Exam Neck Exam: Full ROM - Respiratory Exam Respiratory Exam: NORMAL BREATHING PATTERN Additional comments: crackles bilateral base, improved during admission - Cardiovascular Exam Cardiovascular Exam: REGULAR RHYTHM, +S1, +S2 - GI/Abdominal Exam GI & Abdominal Exam: Soft, Normal Bowel Sounds. absent: Guarding, Rigid, Tenderness - Extremities Exam Extremities Exam: Normal Capillary Refill. absent: Calf Tenderness, Tenderness - Neurological Exam Neurological Exam: Alert, Awake, Normal Gait Neuro motor strength exam: Left Upper Extremity: 5, Right Upper Extremity: 5, Left Lower Extremity: 5, Right Lower Extremity: 5 - Psychiatric Exam Psychiatric exam: Normal Mood - Skin Skin Exam: Dry, Warm Assessment and Plan - Assessment and Plan (Free Text) Assessment: 57 yo male PMHx HTN, COPD, CVA 2013, HCV, heroin and tobacco abuse presented with complaints of depression and anxiety worsening over the past 3 days. Patient admitted to [facility] for chest pain and shortness of breath. Patietn with three negative troponin bu tEKG with t wave inversions Plan: Chest Pain r/o ACS - EKG: NSR 57 bpm, showing some t wave inversions - Troponin negative x 3 - Echo 08/2016 - ASA, statin, lisinopril, norvasc - Cardiology consulted, f/u recs - [facility] tomorrow with Dr. Kc - stress test scheduled 12/14/2017 CHF congestion - CXR CHF congestion, improved lung exam - Continue lasix COPD -Duoneb, Spiriva -CT chest w/o contrast showing ground-glass/mosaic opacities seen throughout the upper lobes and less of the lower lobes, few scattered nodular opacities are also seen in the left upper lobe, small nodular density noted posterolateral aspect RUL. Recommending Follow up CT scan in 6 months. Anxiety/Depression - Paxil and Seroquel - Psychiatry consulted, appreciate recs - Patient is accepted to Psychiatric floor pending medical clearance Hx of HCV in setting of cirrhosis - Recommend follow up outpatient with [employer] Polysubstance abuse - Heroin and ETOH cessation counseling GI/DVT ppx - Pepcid 20mg BID - Heparin 5000 Q8H Dispo: Patient to follow up with PMD Dr. Baxter upon discharge from planned psychiatry admission Case and plan discussed with attending
[2017-11-29] MEDS: cefTRIAXone 1 gm 1 GM/100 ML BAG IVPB SCH (09:36)
[2017-11-29] MEDS: Tiotropium 18 mcg Cap For Inhalation IH SCH (09:41)
[2017-11-29 12:30] LABS: INR 1.3 (0.93-1.08)
[2017-11-29] MEDS ORDERED: Iodixanol 320 MG/ML 200 ML BOTTLE IV ONE (12:39)
[2017-11-29] MEDS ORDERED: Lidocaine 2% Inj (20ml) ONE (12:39)
[2017-11-29] MEDS ORDERED: Midazolam 2 MG/2 ML VIAL ONE ×2 (13:24→13:41)
[2017-11-29] MEDS ORDERED: Bacitracin 500 Units/gm Oint Foilpak UD TOP ONE (13:54)
--- NOTE | 2017-11-29 14:51 | CP.PCM.DIS ---
<Ihsan Pires - Last Filed: 11/30/17 07:37> Provider - Provider Date of Admission: 11/28/17 14:20 Attending physician: Suzanne Moody MD Consults: Psychiatry: Dr. Campos Cardiology: Dr. Mcdonald Time Spent in preparation of Discharge (in minutes): 45 Diagnosis - Discharge Diagnosis (1) Anxiety Status: Chronic (2) Chest pain Status: Resolved (3) Headache Status: Resolved (4) Tobacco abuse Status: Chronic Hospital Course - Lab Results Lab Results: Most Recent Lab Values WBC 8.0 10^3/ul (4.5-11.0) 11/29/17 06:20 RBC 5.68 10^6/uL (3.5-6.1) 11/29/17 06:20 Hgb 16.4 g/dL (14.0-18.0) 11/29/17 06:20 Hct 46.6 % (42.0-52.0) 11/29/17 06:20 MCV 82.0 fl (80.0-105.0) 11/29/17 06:20 MCH 28.9 pg (25.0-35.0) 11/29/17 06:20 MCHC 35.2 g/dl (31.0-37.0) 11/29/17 06:20 RDW 14.4 % (11.5-14.5) 11/29/17 06:20 Plt Count 144 10^3/uL (120.0-450.0) 11/29/17 06:20 MPV 10.0 fl (7.0-11.0) 11/29/17 06:20 Gran % 53.1 % (50.0-68.0) 11/29/17 06:20 Lymph % (Auto) 32.5 % (22.0-35.0) 11/29/17 06:20 Churchill % (Auto) 12.5 % (1.0-6.0) H 11/29/17 06:20 Eos % (Auto) 1.5 % (1.5-5.0) 11/29/17 06:20 Baso % (Auto) 0.4 % (0.0-3.0) 11/29/17 06:20 Gran # 4.26 (1.4-6.5) 11/29/17 06:20 Lymph # (Auto) 2.6 (1.2-3.4) 11/29/17 06:20 [place] # (Auto) 1.0 (0.1-0.6) H 11/29/17 06:20 Eos # (Auto) 0.1 (0.0-0.7) 11/29/17 06:20 Baso # (Auto) 0.03 K/mm3 (0.0-2.0) 11/29/17 06:20 PT 15.0 SECONDS (9.4-12.5) H 11/29/17 12:10 INR 1.30 (0.93-1.08) H 11/29/17 12:10 D-Dimer, Quantitative 677 ng/mL (0-243) H 11/27/17 12:00 Sodium 142 mmol/L (132-148) 11/29/17 06:20 Potassium 3.5 mmol/L (3.6-5.0) L 11/29/17 06:20 Chloride 104 mmol/L (98-107) 11/29/17 06:20 Carbon Dioxide 25 mmol/L (21-33) 11/29/17 06:20 Anion Gap 17 (10-20) 11/29/17 06:20 BUN 15 mg/dL (7-21) 11/29/17 06:20 Creatinine 1.0 mg/dl (0.8-1.5) 11/29/17 06:20 Est GFR ( Amer) > 60 11/29/17 06:20 Est GFR (Non-Af Amer) > 60 11/29/17 06:20 Random Glucose 92 mg/dL (70-110) 11/29/17 06:20 Hemoglobin A1c 5.9 % (4.2-6.5) 11/27/17 07:01 Calcium 9.6 mg/dL (8.4-10.5) 11/29/17 06:20 Phosphorus 3.3 mg/dL (2.5-4.5) 11/27/17 07:01 Magnesium 1.8 mg/dL (1.7-2.2) 11/27/17 07:01 Total Bilirubin 0.9 mg/dL (0.2-1.3) 11/29/17 06:20 AST 40 U/L (17-59) 11/29/17 06:20 ALT 38 U/L (7-56) 11/29/17 06:20 Alkaline Phosphatase 88 U/L (38-126) 11/29/17 06:20 Lactate Dehydrogenase 598 U/L (333-699) 11/25/17 21:49 Total Creatine Kinase 62 U/L (35-230) 11/25/17 21:49 Troponin I < 0.01 ng/mL 11/26/17 13:00 NT-Pro-B Natriuret Pep 102 pg/mL (0-450) 11/26/17 10:00 Total Protein 8.7 g/dL (5.8-8.3) H 11/29/17 06:20 Albumin 4.3 g/dL (3.0-4.8) 11/29/17 06:20 Globulin 4.4 gm/dL 11/29/17 06:20 Albumin/Globulin Ratio 1.0 (1.1-1.8) L 11/29/17 06:20 Triglycerides 67 mg/dL (35-160) 11/27/17 07:01 Cholesterol 139 mg/dL (130-200) 11/27/17 07:01 LDL Cholesterol Direct 75 mg/dL (0-129) 11/27/17 07:01 HDL Cholesterol 44 mg/dL (29-60) 11/27/17 07:01 Procalcitonin < 0.05 NG/ML (0.19-0.49) L 11/28/17 08:01 Thyroxine (T4) 9.6 ug/dL (5.5-11.0) 11/27/17 09:24 Total T3 1.05 ng/mL (0.97-1.69) 11/27/17 09:24 TSH 3rd Generation 0.34 mIU/mL (0.46-4.68) L 11/27/17 07:01 Urine Color Yellow (YELLOW) 11/26/17 03:10 Urine Appearance Clear (CLEAR) 11/26/17 03:10 Urine pH 5.5 (4.7-8.0) 11/26/17 03:10 Ur Specific [place] >= 1.030 (1.005-1.035) 11/26/17 03:10 Urine Protein Negative mg/dL (<30 mg/dL) 11/26/17 03:10 Urine Glucose (UA) Negative mg/dL (NEGATIVE) 11/26/17 03:10 Urine Ketones Negative mg/dL (NEGATIVE) 11/26/17 03:10 Urine Blood Negative (NEGATIVE) 11/26/17 03:10 Urine Nitrate Negative (NEGATIVE) 11/26/17 03:10 Urine Bilirubin Negative (NEGATIVE) 11/26/17 03:10 Urine Urobilinogen 0.2 E.U./dL (<1 E.U./dL) 11/26/17 03:10 Ur Leukocyte Esterase Negative Liz/uL (NEGATIVE) 11/26/17 03:10 Salicylates < 1 mg/dL (2.0-20.0) L 11/25/17 21:49 Urine Opiates Screen Negative (NEGATIVE) 11/26/17 03:10 Urine Methadone Screen Negative (NEGATIVE) 11/26/17 03:10 Acetaminophen < 10.0 ug/ml (10.0-20.0) L 11/25/17 21:49 Ur Barbiturates Screen Negative (NEGATIVE) 11/26/17 03:10 Ur Phencyclidine Scrn Negative (NEGATIVE) 11/26/17 03:10 Ur Amphetamines Screen Negative (NEGATIVE) 11/26/17 03:10 U Benzodiazepines Scrn Positive (NEGATIVE) H 11/26/17 03:10 U Oth Cocaine Metabols Negative (NEGATIVE) 11/26/17 03:10 U Cannabinoids Screen Negative (NEGATIVE) 11/26/17 03:10 Alcohol, Quantitative < 10 mg/dL (0-10) 11/25/17 21:49 - Hospital Course Hospital Course: 57 yo male past medical history with HTN, COPD, CVA 2014, HCV, heroin and tobacco abuse presented to [facility] ED with complaints of depression and anxiety worsening over the past 3 days. Patient denied suicidal ideation, homicidal ideation and hallucinations. Patient also reported chest pain and was evaluated in the ED and found to have EKG showing T wave inversions in anterior lead not previously seen on EKG. Patient troponin were trended and found to be negative x 3. Chest CT was preformed and shown to have diffuse ground glass/mosaic appearing opacities seen throughout the upper lobes and less of the lower lobes. Questionable early developing upper lobe alveolar-type infiltrates. Rule out air trapping, diffuse pneumonitis, pulmonary arterial HTN, or possible mild early pulmonary edema. Clinical correlation recommended. Few scattered nodular opacities are also seen in the left upper lobe. Small nodular density also noted posterolateral aspect R upper lobe.Small pericardial effusion. Mild dilatation pulmonary trunk again; r/o PAH. The liver is diminutive and exhibits nodular surface contour consistent with underlying cirrhosis. Patient was instructed to follow up with GI for cirrhosis observation and maintenance. Patient was instructed to follow up with biannual CT scans for lung nodule found on chest CT. Patient had lower extremity ultrasound preformed and showed to have no evidence bilaterally DVT of lower extremities. Echocardiogram was preformed and showed EF of 76%, severe pulm HT, mild TR, RV moderate dilation and flattened septum. Patient was taken by cardiology for Left Heart cath with Dr. De Dios. During stay patient was evaluated by psychiatry and was accepted to inpatient psychiatric treatment for anxiety and depression. Upon stabilization of patient after left heart cath patient was transferred to psychiatric unit for further management and treatment. Discharge plannining including outpatient follow up, medication reconciliation were discussed with patient for after discharge from psychiatric unit. Patient was in understanding and agreeable. Patient was hemodynamically stable and discharged to psychiatric unit. For full details see chart. - Date & Time of H&P Date of H&P: 11/26/17 Time of H&P: 07:03 Discharge Exam - Head Exam Head Exam: ATRAUMATIC, NORMAL INSPECTION, NORMOCEPHALIC - Eye Exam Eye Exam: EOMI, PERRL - Neck Exam Neck exam: Full Rom - Respiratory Exam Respiratory Exam: Wheezes (minimal bilateral base), NORMAL BREATHING PATTERN - Cardiovascular Exam Cardiovascular Exam: REGULAR RHYTHM, +S1, +S2 - GI/Abdominal Exam GI & Abdominal Exam: Normal Bowel Sounds, Soft. absent: Tenderness - Extremities Exam Extremities exam: normal capillary refill, pedal pulses present - Neurological Exam Neurological exam: Alert, CN II-XII Intact, Normal Gait, Oriented x3 - Psychiatric Exam Psychiatric exam: Depressed - Skin Skin Exam: Dry, Intact Discharge Plan - Follow Up Plan Condition: GOOD Disposition: DISCHARGE TO PSYCH HOSPITAL Instructions: Coronary Heart Disease, Heart Healthy Diet, Anxiety, Adult (DC), Coronary Angioplasty (DC), Chest Pain (DC), Drug Abuse and Drug Addiction (DC) Additional Instructions: Follow up with primary care physician within 1-2 weeks upon discharge Follow up with Form Worker for maintenance and screening for cirrhosis and HCV Follow up with bi-annual screening for lung nodule with Chest CT Take medications as prescribed to you Referrals: Johnny Kc MD [Staff Provider] - <Naren Ruiz - Last Filed: 12/04/17 07:30> Provider - Provider Date of Admission: 11/28/17 14:20 Attending physician: Suzanne Moody MD Hospital Course - Lab Results Lab Results: Most Recent Lab Values WBC 7.4 10^3/ul (4.5-11.0) 11/29/17 19:25 RBC 5.85 10^6/uL (3.5-6.1) 11/29/17 19:25 Hgb 17.4 g/dL (14.0-18.0) 11/29/17 19:25 Hct 48.3 % (42.0-52.0) 11/29/17 19:25 MCV 82.6 fl (80.0-105.0) 11/29/17 19:25 MCH 29.7 pg (25.0-35.0) 11/29/17 19:25 MCHC 36.0 g/dl (31.0-37.0) 11/29/17 19:25 RDW 14.6 % (11.5-14.5) H 11/29/17 19:25 Plt Count 168 10^3/uL (120.0-450.0) 11/29/17 19:25 MPV 10.0 fl (7.0-11.0) 11/29/17 19:25 Gran % 88.5 % (50.0-68.0) H 11/29/17 19:25 Lymph % (Auto) 10.9 % (22.0-35.0) L 11/29/17 19:25 Churchill % (Auto) 0.5 % (1.0-6.0) L 11/29/17 19:25 Eos % (Auto) 0.0 % (1.5-5.0) L 11/29/17 19:25 Baso % (Auto) 0.1 % (0.0-3.0) 11/29/17 19:25 Gran # 6.50 (1.4-6.5) 11/29/17 19:25 Lymph # (Auto) 0.8 (1.2-3.4) L 11/29/17 19:25 Churchill # (Auto) 0.0 (0.1-0.6) L 11/29/17 19:25 Eos # (Auto) 0.0 (0.0-0.7) 11/29/17 19:25 Baso # (Auto) 0.01 K/mm3 (0.0-2.0) 11/29/17 19:25 PT 15.0 SECONDS (9.4-12.5) H 11/29/17 12:10 INR 1.30 (0.93-1.08) H 11/29/17 12:10 D-Dimer, Quantitative 677 ng/mL (0-243) H 11/27/17 12:00 Sodium 142 mmol/L (132-148) 11/29/17 06:20 Potassium 3.5 mmol/L (3.6-5.0) L 11/29/17 06:20 Chloride 104 mmol/L (98-107) 11/29/17 06:20 Carbon Dioxide 25 mmol/L (21-33) 11/29/17 06:20 Anion Gap 17 (10-20) 11/29/17 06:20 BUN 15 mg/dL (7-21) 11/29/17 06:20 Creatinine 1.0 mg/dl (0.8-1.5) 11/29/17 06:20 Est GFR ( Amer) > 60 11/29/17 06:20 Est GFR (Non-Af Amer) > 60 11/29/17 06:20 Random Glucose 92 mg/dL (70-110) 11/29/17 06:20 Hemoglobin A1c 5.9 % (4.2-6.5) 11/27/17 07:01 Calcium 9.6 mg/dL (8.4-10.5) 11/29/17 06:20 Phosphorus 3.3 mg/dL (2.5-4.5) 11/27/17 07:01 Magnesium 1.8 mg/dL (1.7-2.2) 11/27/17 07:01 Total Bilirubin 0.9 mg/dL (0.2-1.3) 11/29/17 06:20 AST 40 U/L (17-59) 11/29/17 06:20 ALT 38 U/L (7-56) 11/29/17 06:20 Alkaline Phosphatase 88 U/L (38-126) 11/29/17 06:20 Lactate Dehydrogenase 598 U/L (333-699) 11/25/17 21:49 Total Creatine Kinase 62 U/L (35-230) 11/25/17 21:49 Troponin I < 0.01 ng/mL 11/26/17 13:00 NT-Pro-B Natriuret Pep 102 pg/mL (0-450) 11/26/17 10:00 Total Protein 8.7 g/dL (5.8-8.3) H 11/29/17 06:20 Albumin 4.3 g/dL (3.0-4.8) 11/29/17 06:20 Globulin 4.4 gm/dL 11/29/17 06:20 Albumin/Globulin Ratio 1.0 (1.1-1.8) L 11/29/17 06:20 Triglycerides 67 mg/dL (35-160) 11/27/17 07:01 Cholesterol 139 mg/dL (130-200) 11/27/17 07:01 LDL Cholesterol Direct 75 mg/dL (0-129) 11/27/17 07:01 HDL Cholesterol 44 mg/dL (29-60) 11/27/17 07:01 Procalcitonin < 0.05 NG/ML (0.19-0.49) L 11/28/17 08:01 Thyroxine (T4) 9.6 ug/dL (5.5-11.0) 11/27/17 09:24 Total T3 1.05 ng/mL (0.97-1.69) 11/27/17 09:24 TSH 3rd Generation 0.34 mIU/mL (0.46-4.68) L 11/27/17 07:01 Urine Color Yellow (YELLOW) 11/26/17 03:10 Urine Appearance Clear (CLEAR) 11/26/17 03:10 Urine pH 5.5 (4.7-8.0) 11/26/17 03:10 Ur Specific [place] >= 1.030 (1.005-1.035) 11/26/17 03:10 Urine Protein Negative mg/dL (<30 mg/dL) 11/26/17 03:10 Urine Glucose (UA) Negative mg/dL (NEGATIVE) 11/26/17 03:10 Urine Ketones Negative mg/dL (NEGATIVE) 11/26/17 03:10 Urine Blood Negative (NEGATIVE) 11/26/17 03:10 Urine Nitrate Negative (NEGATIVE) 11/26/17 03:10 Urine Bilirubin Negative (NEGATIVE) 11/26/17 03:10 Urine Urobilinogen 0.2 E.U./dL (<1 E.U./dL) 11/26/17 03:10 Ur Leukocyte Esterase Negative Liz/uL (NEGATIVE) 11/26/17 03:10 Salicylates < 1 mg/dL (2.0-20.0) L 11/25/17 21:49 Urine Opiates Screen Negative (NEGATIVE) 11/26/17 03:10 Urine Methadone Screen Negative (NEGATIVE) 11/26/17 03:10 Acetaminophen < 10.0 ug/ml (10.0-20.0) L 11/25/17 21:49 Ur Barbiturates Screen Negative (NEGATIVE) 11/26/17 03:10 Ur Phencyclidine Scrn Negative (NEGATIVE) 11/26/17 03:10 Ur Amphetamines Screen Negative (NEGATIVE) 11/26/17 03:10 U Benzodiazepines Scrn Positive (NEGATIVE) H 11/26/17 03:10 U Oth Cocaine Metabols Negative (NEGATIVE) 11/26/17 03:10 U Cannabinoids Screen Negative (NEGATIVE) 11/26/17 03:10 Alcohol, Quantitative < 10 mg/dL (0-10) 11/25/17 21:49 Attending/Attestation - Attestation I have personally seen and examined this patient.: Yes I have fully participated in the care of the patient.: Yes I have reviewed all pertinent clinical information, including history, physical exam and plan: Yes Notes (Text): 57 year old male with past medical history of hypertension, COPD, CVA, hepatitis C and depression who presented with worsening depression. He was found to have EKG changes with TWI in anterior leads. Serial cardiac enzymes were negative and ACS was ruled out. He was seen by cardiology and underwent cardiac cath today which showed normal coronaries. CT chest and echocardiogram were reviewed as above. He was also seen by psychiatrist who recommended inpatient admission for depression which patient was agreeable to. Patient is transferred to inpatient psychiatry unit. Recommended to follow up with pmd. Follow up with GI/hepatitis clinic. Follow up with pulmonary to repeat CT chest. Naren Ruiz MD Hospitalist.
--- NOTE | 2017-11-29 16:13 | CARDCATH ---
PROCEDURE DATE: 11/29/2017 LEFT HEART CATHETERIZATION HISTORY: The patient is a 57-year-old male who has a history of CVA in the past, presents because of chest pain. EKG was consistent with anterior deep T-wave inversion. A cardiac catheterization was recommended. The procedure and it's risks were fully explained to the patient, understood and agreed for the procedure. PROCEDURE: After local infiltration with 1% lidocaine, a 6-Emirati sheath was placed in the right femoral artery. Left and right coronary angiography were performed with 6-Emirati JL-4 and JR-4 diagnostic catheters. The patient tolerated the procedure well without any complications. ANGIOGRAPHIC FINDINGS: Selective injection of left coronary artery revealed left main to be a short normal vessel that bifurcated into a medium-sized LAD and medium-sized circumflex artery. The circumflex artery had a total of 3 major marginal branches. Entire left coronary artery circulation was angiographically unremarkable. Selective injection of the right coronary artery revealed a medium-sized dominant vessel that was angiographically unremarkable. CONCLUSION: Unremarkable coronary circulation. The patient has normal left ventricular systolic function as per recent echocardiography study performed yesterday. RECOMMENDATIONS: No further coronary workup is indicated. 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 Johnny Kc MD
[2017-11-29 19:33] LABS: BASO # 0.01 K/mm3 (0.0-2.0); BASO % 0.1 % (0.0-3.0); GRAN # 6.5 (1.4-6.5); GRAN % 88.5 % (50.0-68.0); HEMOGLOBIN 17.4 g/dL (14.0-18.0); LYMPH # 0.8 (1.2-3.4); LYMPH % 10.9 % (22.0-35.0); MEAN CELL VOLUME 82.6 fl (80.0-105.0); MEAN CORPUSCULAR HEMOGLOBIN 29.7 pg (25.0-35.0); MONO % 0.5 % (1.0-6.0); RBC 5.85 10^6/uL (3.5-6.1); RED CELL DISTRIBUTION WIDTH 14.6 % (11.5-14.5); WHITE BLOOD COUNT 7.4 10^3/ul (4.5-11.0)
[2017-11-29 20:58] VITALS: BP 128/83; PULSE 90; RESP 19; TEMP 98.6; O2SAT 96
--- NOTE | 2017-11-29 21:46 | PN ---
DATE: 11/29/2017 SUBJECTIVE: The patient was followed up. The patient presented to be anxious before procedure. The patient is scheduled for cardiac cath today. The patient reported that he felt depressed, looking for a psych admission for continued care as well as medication management. The patient has transient thoughts of being and hopelessness. The patient wants to be resumed on the medications. Vital signs are stable. Pulse is 94, blood pressure 171/70, respirations 18. MEDICATIONS: Reviewed. The patient is on Norvasc, aspirin, Rocephin, Plavix, Pepcid, Lasix, heparin, Zestril, Paxil 10 mg at the nighttime, Seroquel 100 mg at the nighttime, and Spiriva. LABORATORY DATA: Reviewed. Toxicology reviewed, was positive for benzodiazepines. MENTAL STATUS EXAMINATION: The patient presented to be alert, oriented, anxious. Intermittent eye contact. Speech was underproductive, low volume. Mood described as hopeless. Thought process coherent, goal directed. Thought content, the patient denied visual, auditory, or tactile hallucinations. Denied paranoid ideations. The patient denied thoughts of harming himself or others, but passive wish to be . Insight and judgment seem to be limited. Impulses are well controlled. IMPRESSION: Most likely, the patient has major depressive disorder or depression due to general medical condition, opioid use disorder, cannabis abuse. Rule out substance-induced mood disorder. PLAN: The patient is willing to sign into the Psychiatric Inpatient Unit. Medications were readjusted. The patient signed himself into the psych jorge and will be transferred after observation on the medical site. Thank you very much for letting me to participate in the care of your patient. Marielena Campos MD
== END 2017-11-29 21:21 | DRG 543 ==
LOC: ED 20:15 → ERH 11-26 06:16 → 3RNO 11-26 08:50 → OBSVTOIN 11-28 14:20 → 2RSO 11-29 14:54
PROVIDERS: ADMIT Internal Medicine; ATTEND Internal Medicine
PROC: 4A023N7 Measurement of Cardiac Sampling and Pressure, Left Heart, Percutaneous Approach (ICD-10-PCS; principal; 2017-11-29)
PROC: B211YZZ Fluoroscopy of Multiple Coronary Arteries using Other Contrast (ICD-10-PCS; 2017-11-29)
DX: R07.9 Chest pain, unspecified (principal); I50.30 Unspecified diastolic (congestive) heart failure; F11.10 Opioid abuse, uncomplicated; B19.20 Unspecified viral hepatitis C without hepatic coma; K74.60 Unspecified cirrhosis of liver; J44.9 Chronic obstructive pulmonary disease, unspecified; I11.0 Hypertensive heart disease with heart failure; F32.9 Major depressive disorder, single episode, unspecified; R51 Headache; E66.9 Obesity, unspecified; I27.20 Pulmonary hypertension, unspecified; R94.31 Abnormal electrocardiogram [ECG] [EKG]; F10.10 Alcohol abuse, uncomplicated; F12.10 Cannabis abuse, uncomplicated; F41.9 Anxiety disorder, unspecified; Z86.73 Personal history of transient ischemic attack (TIA), and cerebral infarction without residual deficits; Z88.0 Allergy status to penicillin

== ENCOUNTER 2017-11-29 21:27 | Inpatient (IN) | payer MEDICAID ==
[2017-11-29 22:32] VITALS: BMI 33.7
[2017-11-29] MEDS ORDERED: Alum-Mag Hydrox-Simethicone Susp (30 mL) PO PRN (22:47)
[2017-11-29] MEDS ORDERED: Magnesium Hydroxide Susp 30 ml UD PO PRN (22:47)
--- NOTE | 2017-11-30 01:20 | PCM.BM ---
<Royal Martinez - Last Filed: 11/30/17 01:17> Treatment Plan Problems - Problems identified on initial assessmt Helplessness/Hopelesness Date Initiated: 11/29/17 Time Initiated: 22:00 Assessment reference: NA Status: Active Priority: 1 Ineffective coping Date Initiated: 11/29/17 Time Initiated: 22:00 Assessment reference: NA Status: Active Priority: 2 Medication nonadherence Date Initiated: 11/29/17 Time Initiated: 22:00 Assessment reference: NA Status: Active Priority: 3 Treatment assets and liabiliti Patient Assests: cooperative, ADL independent, good support system, negotiates basic needs, cognitively intact, good interpersonal skills Patient Liabilities: physical pain, financial problems, substance abuse - Milieu Protocol Maintain good personal hygiene: daily Encourage regular showers, daily Remind patient to perform daily oral care, daily Assist patient to perform ADL's Conduct patient checks and document Observation sheet: Q15 minutes Maintain personal safety: every shift Educate patient to report safety concerns to staff, every shift Monitor environment for contraband/sharps Medication safety: Monitor for expected outcome, potential side effects: every shift, Assess barriers to learning: every shift, Assess readiness for medication education: every shift Discharge/Continuing Care - Education Needs Education Needs: Patient Medication, Patient Diagnosis/Disease Process, Patient Coping Skills, Patient Placement options, Patient Community resources, Patient Health Practices/Safety - Discharge Discharge Criteria: Tolerates medication w/o severe side effects, Ability to care for self <Marielena Campos - Last Filed: 11/30/17 16:23> - Diagnosis (1) MDD (major depressive disorder) Status: Acute Interventions: 11/30/17 16:23 Psychoeducation Psychopharmacology/adjustment of medications as needed/ monitoring possible side effects Evaluate pt on daily basis Compliance with medications and follow up appointments Suicide and homicide risk assessment and prevention Relapse prevention Reduction of symptoms Improve functional status Family involvement As outpatient: cognitive behavioral therapy (2) Opiate dependence Status: Chronic Interventions: 11/30/17 16:23 Monitoring withdrawal symptoms Medical detoxification Pharmacotherapy for alcohol/benzos/opioid dependence Maintaining sobriety Relapse prevention Possible rehabilitation Motivational interviewing 12-step programs: AA meetings <Keshia Ramirez - Last Filed: 12/01/17 11:25>
[2017-11-30 07:31] LABS: GLUCOSE,FASTING 127 mg/dL (65-110); HDL CHOLESTEROL 53 mg/dL (29-60)
[2017-11-30 07:43] LABS: LDL CHOLESTEROL 89 mg/dL (0-129)
--- NOTE | 2017-11-30 07:51 | CP.PCM.CON ---
<Ihsan Pires - Last Filed: 11/30/17 14:45> History of Present Illness - History of Present Illness History of Present Illness: Consult Note for Hospitalist Service HPI: 57 yo male PMHx HTN, COPD, CVA 2014, HCV, heroin abuse, tobacco abuse, and cirrhosis who originally presented to [facility] [place] ED complaining of anxiety, depression and chest pain who was admitted for chest pain rule out. Patient chest pain was worked up with negative troponin x3, echocardiogram that showed normal ejection fraction, severe pulmonary hypertension. Patient was noted to have EKG with irregular T waves and was taken for left heart catherization with Dr. De Dios. Patient was found to have clean coronaries and medically cleared for discharge to psychiatry unit. Patient reports some respiratory difficulties with exertion but is able to carry a conversation while ambulating. 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 Patient denies chest pain, abdominal pain, nausea, vomiting, fever, chills, weakness, focal deficits, urinary symptoms. PMHx: Hypertension, CVA, HCV, heroin abuse SurgHx: [facility] All: Penicillin FamHx: Non-contributory Meds: MAR reviewed SocHx: Admits to tobacco use, alcohol use, and heroin use - snorts, did use IV in the past Review of Systems - Review of Systems All systems: reviewed and no additional remarkable complaints except (as mentioned in HPI) Past Patient History - Infectious Disease Hx of Infectious Diseases: None - Past Medical History & Family History Past Medical History?: Yes - Past Social History Smoking Status: Current Some Days Smoker - CARDIAC Hx Cardiac Disorders: Yes Hx Hypertension: Yes - PULMONARY Hx Respiratory Disorders: Yes Hx Chronic Obstructive Pulmonary Disease (COPD): Yes Hx Emphysema: Yes - NEUROLOGICAL Hx Neurological Disorder: Yes HX Cerebrovascular Accident: Yes - HEENT Hx HEENT Problems: No - RENAL Hx Chronic Kidney Disease: No - ENDOCRINE/METABOLIC Hx Endocrine Disorders: No - HEMATOLOGICAL/ONCOLOGICAL Hx Blood Disorders: No - INTEGUMENTARY Hx Dermatological Problems: No - MUSCULOSKELETAL/RHEUMATOLOGICAL Hx Falls: Yes - GASTROINTESTINAL Hx Gastrointestinal Disorders: No - GENITOURINARY/GYNECOLOGICAL Hx Genitourinary Disorders: No - PSYCHIATRIC Hx Substance Use: Yes - SURGICAL HISTORY Hx Surgeries: Yes Hx Cardiac Catheterization: Yes - ANESTHESIA Hx Anesthesia: No Meds Allergies/Adverse Reactions: Allergies Allergy/AdvReac Type Severity Reaction Status Date / Time Penicillins Allergy RASH Verified 11/29/17 22:31 - Medications Medications: Current Medications Acetaminophen (Tylenol 325mg Tab) 650 mg PO Q4 PRN PRN Reason: Pain, moderate (4-7) Al Hydrox/Mg Hydrox/Simethicone (Maalox Plus 30 Ml) 30 ml PO DAILY PRN PRN Reason: Upset Stomach Amlodipine Besylate (Norvasc) 10 mg PO DAILY MARLYN Aspirin (Ecotrin) 81 mg PO DAILY MARLYN Clopidogrel Bisulfate (Plavix) 75 mg PO DAILY MARLYN Famotidine (Pepcid) 20 mg PO 1000,2200 MARLYN Furosemide (Lasix) 40 mg PO DAILY MARLYN Lisinopril (Zestril) 10 mg PO DAILY [facility]N Magnesium Hydroxide (Milk Of Magnesia) 30 ml PO DAILY PRN PRN Reason: Constipation Quetiapine Fumarate (Seroquel) 100 mg PO HS MARLYN PRN Reason: Protocol Tiotropium [place] (Spiriva) 18 mcg IH DAILY MARLYN Physical Exam - Constitutional Appears: Non-toxic, No Acute Distress - Head Exam Head Exam: ATRAUMATIC, NORMAL INSPECTION, NORMOCEPHALIC - Eye Exam Eye Exam: EOMI, PERRL - ENT Exam ENT Exam: Mucous Membranes Moist - Respiratory Exam Respiratory Exam: Rhonchi (mild left side), NORMAL BREATHING PATTERN. absent: Accessory Muscle Use - Cardiovascular Exam Cardiovascular Exam: REGULAR RHYTHM, +S1, +S2 - GI/Abdominal Exam GI & Abdominal Exam: Normal Bowel Sounds, Soft. absent: Tenderness - Extremities Exam Extremities exam: Positive for: normal capillary refill, pedal edema (mild bilateral non pitting ) - Neurological Exam Neurological exam: Alert, CN II-XII Intact, Normal Gait, Oriented x3 - Psychiatric Exam Psychiatric exam: Depressed - Skin Skin Exam: Dry, Intact Results - Vital Signs Recent Vital Signs: Last Vital Signs Temp 98.5 F 11/30/17 06:50 Pulse 75 11/30/17 06:50 Resp 20 11/30/17 06:50 BP 142/96 H 11/30/17 06:50 Pulse Ox 98 11/29/17 21:30 - Labs Labs: Laboratory Results - last 24 hr 11/30/17 07:00 Fasting Glucose 127 H Triglycerides 51 Cholesterol 164 HDL Cholesterol 53 Assessment & Plan - Assessment and Plan (Free Text) Assessment: 57 yo male PMHx HTN, COPD, CVA 2014, HCV, heroin and tobacco abuse t admitted to tele for chest pain and shortness of breath. Patient with three negative troponin bu EKG with t wave inversions. Patient went for LHC with Dr. De Dios showing clean coronaries. Patient found to have elevated RSVP on Echocardiogram , pulmonary to be consulted for severe pulmonary HTN. Patient admitted to psychiatric unit for anxiety and depression. Plan: Severe Pulmonary HTN - Etiology: Interstitial lung disease vs. COPD - Echo showing RVSP 110mmHg - Chest CT showing ground glass opacities, mosaic appearing opacities seen throughout the upper lobes and less of the lower lobes. Questionable early developing upper lobe alveolar-type infiltrates. Few scattered nodular opacities are also seen in the left upper lobe, small nodular density also noted posterolateral aspect right upper lobe. mild dilatation pulmonary trunk - Pulmonary consult, f/u recs - Six minute walk test, f/u results ETOH abuse - Cessation counseling offered Tobacco abuse - Cessation counseling offered Hx of HTN - Continue home medications Case and plan discussed with attending - Date & Time Date: 11/30/17 Time: 11:48 <Suzanne Moody - Last Filed: 12/01/17 08:04> Meds - Medications Medications: Current Medications Acetaminophen (Tylenol 325mg Tab) 650 mg PO Q4 PRN PRN Reason: Pain, moderate (4-7) Al Hydrox/Mg Hydrox/Simethicone (Maalox Plus 30 Ml) 30 ml PO DAILY PRN PRN Reason: Upset Stomach Amlodipine Besylate (Norvasc) 10 mg PO DAILY [facility] Last Admin: 11/30/17 08:16 Dose: 10 mg Aspirin (Ecotrin) 81 mg PO DAILY [facility] Last Admin: 11/30/17 08:15 Dose: 81 mg Clopidogrel Bisulfate (Plavix) 75 mg PO DAILY [facility] Last Admin: 11/30/17 08:17 Dose: 75 mg Famotidine (Pepcid) 20 mg PO 1000,2200 [facility] Last Admin: 11/30/17 21:40 Dose: 20 mg Furosemide (Lasix) 40 mg PO DAILY [facility] Last Admin: 11/30/17 08:16 Dose: 40 mg Lisinopril (Zestril) 10 mg PO DAILY [facility] Last Admin: 11/30/17 08:15 Dose: 10 mg Magnesium Hydroxide (Milk Of Magnesia) 30 ml PO DAILY PRN PRN Reason: Constipation Paroxetine HCl (Paxil) 10 mg PO HS MARLYN Last Admin: 11/30/17 21:40 Dose: 10 mg Quetiapine Fumarate (Seroquel) 100 mg PO HS MARLYN PRN Reason: Protocol Last Admin: 11/30/17 21:40 Dose: 100 mg Tiotropium [place]ym[place] (Spiriva) 18 mcg IH DAILY [facility] Last Admin: 11/30/17 08:18 Dose: 18 mcg Zaleplon (Sonata) 5 mg PO HS PRN PRN Reason: Insomnia Last Admin: 11/30/17 22:51 Dose: 5 mg Results - Vital Signs Recent Vital Signs: Last Vital Signs Temp 97.5 F L 12/01/17 06:39 Pulse 67 12/01/17 06:39 Resp 19 12/01/17 06:39 BP 104/66 12/01/17 06:39 Pulse Ox 98 11/29/17 21:30 - Labs Labs: Laboratory Results - last 24 hr 11/30/17 11/30/17 07:00 07:00 TSH 3rd Generation 0.11 L RPR Nonreactive Attending/Attestation - Attestation I have personally seen and examined this patient.: Yes I have fully participated in the care of the patient.: Yes I have reviewed all pertinent clinical information: Yes Notes (Text): 12/01/17 07:54 Medical record note made by the resident after discussion with my direction and input after the patient was personally seen and examined by me. I have reviewed the chart and agree that the record accurately reflects by personal performance of the history, physical exam, data review, and medical decision-making, in the course for the patient. I have also personally directed the plan of care. 57 yo male PMHx HTN, COPD, CVA 2013, HCV, heroin and tobacco abuse was initially admitted to [facility] [place] hospitalist service with complaints for chest pain and shortness of breath. Patient was monitored in telemetry, serial troponin were normal bu EKG with t wave inversions, patient was evaluated by cardiology and underwent cardiac catherization, that reveals non obstructive CAD.CT chest showed ground glass opacities suggestive of interstitial lung disease.Echo showed severe Pulmonary HTN.Patient is ambulatory and is not dyspnic.He is on room air.We will get Pulmonary consult. COPD is stable, patient is not wheezing. Right sided Heart faailure due to Pulmonary HTN, stable on oral lasix. Issue of chronic smoking was discussed in detail with him There is no active medical issue at this time.Please follow Pulmonary recommendation.We will sign off. Please call us back if any question.
[2017-11-30] MEDS: Tiotropium 18 mcg Cap For Inhalation IH SCH (08:18)
--- NOTE | 2017-11-30 15:44 | PCM.PSYCH ---
Initial Psychiatric Evaluation - Initial Psychiatric Evaluation Type of Admission: Voluntary Legal Status: Capacity (patient has capacity to sign consent for treatment) Chief Complaint (in patient's own words): "I was thinking if truck will kill me it would be okay, now medical doctor said that I have small lump in my lung and I feel I do care..." Patient's Reaction to Hospitalization: pt was transferred from the medical floor for evaluation of depressive symptoms , hopelessness and passive wish to be . History of Present Illness and Precipitating Events: Shortly patient is 57 year old male, self reported history of IV heroin abuse, now snorting, patient has multiple medical issues including CVA with residual of right sided weakness, chronic back pain, pt was admitted to the medical floor initially for chest pain, pt was stabilized, was transferred to the psych unit 11/29/17 uneventfully to address depression/hopelessness, helplessness, passive wish to be . 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 pt said after he was discharged from the hospital, he was doing "well for two weeks, then I stopped taking medications because I didn't know that I have refills", pt said he staid with his brother, pt reported he relapsed on heroin, was "using heavy since last ". pt said now he feels depressed, hopeless, helpless, pt was blaming himself for all the mistake he made in his life. Patient presented to have acceptable personal hygiene but seems to be careless about his appearance, patient also had acceptable ADLs. Patient reported that that she was feeling depressed because he has no job, he has a lot of free time, patient reported that he was using heroin in snorting, patient has history or being on heroine IV drug use for more than 25 years, patient reported that his veins are collapsed and now he can only snort heroine. Patient has multiple rehabs, detoxes in the past, the longest period of sobriety is 8 years while he was incarcerated. Patient reported that he had difficulties to fall and stay asleep. Treatment goals: "I want to feel better" pt reported to smoke about 3cigarettes a day, refused nicotine patch, counseling provided. pt denied hearing voices, denied seeing things, denied paranoid ideation. History of multiple arrests, incarcerations, history of being witness of violence in the community. denied PTSD. past psychiatric history: patient had one admission, denied history of suicidal attempts. Family history: Patient denied family history of mental illness, but history or substance abuse as well as incarcerations. Medical issues: CVA with residual weakness on the right side, chronic back pain, obesity, hypertension, discussed case with 11/30/17, pt has pulmonary hypertension, prognosis poor, pt needs to be f/u with [facility], [facility]. pt s/p cardiac cath 11/29/17, stable condition. Lab Results 11/30/17 07:00: TSH 3rd Generation 0.11 L 11/30/17 07:00: Fasting Glucose 127 H, Triglycerides 51, Cholesterol 164, LDL Cholesterol Direct 89, HDL Cholesterol 53 Vital Signs Temp Pulse Resp BP Pulse Ox 11/30/17 08:16 142/96 H 11/30/17 06:50 98.5 F 75 20 142/96 H 11/29/17 21:30 97.8 F 101 H 22 146/98 H 98 medical consult appreciated: Severe Pulmonary HTN - Etiology: Interstitial lung disease vs. COPD - Echo showing RVSP 110mmHg - Chest CT showing ground glass opacities, mosaic appearing opacities seen throughout the upper lobes and less of the lower lobes. Questionable early developing upper lobe alveolar-type infiltrates. Few scattered nodular opacities are also seen in the left upper lobe, small nodular density also noted posterolateral aspect right upper lobe. mild dilatation pulmonary trunk - Pulmonary consult, f/u recs - Six minute walk test, f/u results ETOH abuse - Cessation counseling offered Tobacco abuse - Cessation counseling offered Hx of HTN - Continue home medications Current Medications: Active Medications Generic Name Dose Route Start Last Admin Trade Name Freq PRN Reason Stop Dose Admin Acetaminophen 650 mg 11/29/17 22:47 Tylenol 325mg Tab PO Q4 PRN Pain, moderate (4-7) Al Hydrox/Mg Hydrox/Simethicone 30 ml 11/29/17 22:47 Maalox Plus 30 Ml PO DAILY PRN Upset Stomach Amlodipine Besylate 10 mg 11/30/17 08:00 11/30/17 08:16 Norvasc PO 10 mg DAILY MARLYN Administration Aspirin 81 mg 11/30/17 08:00 11/30/17 08:15 Ecotrin PO 81 mg DAILY MARLYN Administration Clopidogrel Bisulfate 75 mg 11/30/17 08:00 11/30/17 08:17 Plavix PO 75 mg DAILY MARLYN Administration Famotidine 20 mg 11/30/17 10:00 11/30/17 09:14 Pepcid PO 20 mg 1000,2200 MARLYN Administration Furosemide 40 mg 11/30/17 08:00 11/30/17 08:16 Lasix PO 40 mg DAILY MARLYN Administration Lisinopril 10 mg 11/30/17 08:00 11/30/17 08:15 Zestril PO 10 mg DAILY MARLYN Administration Magnesium Hydroxide 30 ml 11/29/17 22:47 Milk Of Magnesia PO DAILY PRN Constipation Quetiapine Fumarate 100 mg 11/30/17 22:00 Seroquel PO HS [facility] Protocol Tiotropium [place] 18 mcg 11/30/17 08:00 11/30/17 08:18 Spiriva IH 18 mcg DAILY MARLYN Administration Past Psychiatric History - Past Psychiatric History Previous Treatment History: Inpatient Prior Professional Help: see HPI Prior Psychiatric Treatment: see HPI At what hospital: see HPI Duration: see HPI Nature of Treatment: see HPI Explanation of prior treatment: see HPI History of Abuse: see HPI History of ETOH/Drug Use: see HPI History of Family Illness: see HPI Pertinent Medical Hx (Current Medical&Sleep Prob, Allergies): Allergies Allergy/AdvReac Type Severity Reaction Status Date / Time Penicillins Allergy RASH Verified 11/29/17 22:31 Aspirin [Ecotrin] 81 mg PO DAILY #7 tabec 08/30/17 Lisinopril [Zestril] 10 mg PO DAILY #7 tab 08/30/17 Paroxetine HCl [Paxil] 40 mg PO HS #14 tablet 08/30/17 QUEtiapine [Seroquel] 100 mg PO HS #14 tab 08/30/17 Tiotropium [Spiriva] 18 mcg IH DAILY #1 cap 08/30/17 amLODIPine [Norvasc] 10 mg PO DAILY #7 tab 08/30/17 Clopidogrel [Plavix] 75 mg PO DAILY tab 11/29/17 Famotidine [Pepcid] 20 mg PO 1000,2200 tab 11/29/17 Furosemide [Lasix] 40 mg PO DAILY tab 11/29/17 Review of Systems - Review of Systems Systems not reviewed;Unavailable: Acuity of Condition - EENT Eyes: As Per HPI Ears: As Per HPI Nose/Mouth/Throat: As Per HPI - Cardiovascular Cardiovascular: As Per HPI - Respiratory Respiratory: As Per HPI - Gastrointestinal Gastrointestinal: As Per HPI - Genitourinary Genitourinary: As Per HPI - Reproductive: Male Reproductive:Male: As Per HPI - Musculoskeletal Musculoskeletal: As Par HPI - Integumentary Integumentary: As Per HPI - Neurological Neurological: As Per HPI - Psychiatric Psychiatric: As Per HPI - Endocrine Endocrine: As Per HPI - Hematologic/Lymphatic Hematologic: As Per HPI Mental Status Examination - Personal Presentation Personal Presentation: Looks older than stated age - Affect Affect: Flat - Motor Activity Motor Activity: Calm - Speech Speech: Organized - Mood Mood: Depressed, Anxious - Formal Thought Process Formal Thought Process: No Impairment - Obsessions/Compulsions Obsessions: None Compulsions: None - Cognitive Functions Orientation: Person, Place, Situation Sensorium: Alert Attention/Concentration: Easily distracted Estimate of Intelligence: Average Judgement: Intact, as evidence by: Insight regarding need for hospitalization - Risk Risk: Diminished functioning - Strength & Assets Inventory Strength & Assets Inventory: Intelligence, Skills, Cooperative - Limitations Limitations: Other (serious medical issues, substance use) DSM 5 DX - DSM 5 DSM 5 Diagnosis: r/o mdd r/o mood and anxiety due to a [facility] - Recommended/Plan of Treatment Treatment Recommendations and Plan of Treatment: milieu/structure/supportive therapy will continue all meds Aspirin [Ecotrin] 81 mg PO DAILY Lisinopril [Zestril] 10 mg PO DAILY Paroxetine HCl [Paxil] 40 mg PO HS QUEtiapine [Seroquel] 100 mg PO HS Tiotropium [Spiriva] 18 mcg IH DAILY amLODIPine [Norvasc] 10 mg PO DAILY Clopidogrel [Plavix] 75 mg PO DAILY Famotidine [Pepcid] 20 mg PO 1000,2200 Furosemide [Lasix] 40 mg PO DAILY paxil 10mg po hs for depression and anxiety sonata prn for insomnia Medical consult appreciated, see medical team note for more detailed info SW consultation for discharge plan and social issues Family involvement Follow up on labs Will monitor closely Pt was educated about risk/benefits and alternatives of medications, coping strategies (safety plan, suicide prevention), relapse prevention, importance of follow up with psychiatrist and therapist, stay away from drugs/alcohol/smoking Projected ELOS: 7days Prognosis: guarded Discharge Plan and Discharge Criteria: Pt will be not depressed or manic, will be more hopeful, will be not psychotic or anxious, will be not having thoughts of harming self or others, will be tolerating medications well, will not have major side effects, will be able to function, will not pose threat to self or others. - Smoking Cessation Smoking Cessation Initiated: No Reason for not providing: pt refused
--- NOTE | 2017-12-01 06:27 | CON ---
DATE: 11/30/2017 HISTORY OF PRESENT ILLNESS: Patient is 57-year-old gentleman with history of COPD, hypertension, depression, hepatitis C, who presented to [facility] with anxiety, depression, and chest pain and was admitted to rule out cardiac origin of the chest pain. That was ruled out with negative troponins x3 and echocardiogram that showed normal left ventricular systolic function, however, severe pulmonary hypertension and right ventricular dilatation was suggested based on Echo. Patient also had left heart catheterization which did not reveal any clinically significant coronary atherosclerotic disease. Patient was cleared for discharge to psychiatry unit. Pulm consult was requested for recommendation on COPD and cor pulmonale. No chest pain, abdominal pain, nausea, vomiting, fever, chills, weakness, focal deficit, urinary symptoms. PAST MEDICAL HISTORY: Hypertension, CVA, hepatitis C, heroin abuse. SURGICAL HISTORY: [facility] on 11/29/2017. ALLERGIES: PENICILLIN. SOCIAL HISTORY: Patient has active tobacco smoking, alcohol abuse, and patient is snoring heroin as well as did IV heroin in the past. REVIEW OF SYSTEMS: Review of 12-organ system other than mentioned in history of present illness is negative. FAMILY HISTORY: Noncontributory. MEDICATIONS: At home, Norvasc, Spiriva, Seroquel, Paxil, lisinopril, Lasix, Pepcid, aspirin, and Plavix. MEDICATIONS: In the hospital, Tylenol, amlodipine, aspirin, Plavix, Pepcid, Lasix, lisinopril, Paxil, quetiapine, tiotropium, Xyloflo. PHYSICAL EXAMINATION: VITAL SIGNS: Temperature 98.5, heart rate 75, blood pressure 142/96, respiratory rate 20, oxygen saturation 98% on room air. HEENT: Head and neck: Atraumatic. LUNGS: Clear to auscultation bilaterally. HEART: Regular rate and rhythm. S1, S2 normal. ABDOMEN: Soft, nontender, nondistended. MUSCULOSKELETAL: Trace bilateral pedal and ankle edema, which according to the patient substantially improved recently. SKIN: Moist. PSYCHIATRIC: Patient is alert, awake, and oriented x3. NEUROLOGIC: Patient moves all extremities spontaneously. LABORATORY DATA: WBC 7.4, hemoglobin 17.4, platelet count 168. Sodium 142, potassium 3.5, chloride 104, carbon dioxide 25, BUN 15, creatinine 1, glucose 127. INR 1.3. Echocardiogram performed 2 days ago revealed left ventricle is of normal size, there is a normal left ventricular wall thickness, the left ventricular function is normal, there is a flattened septum, the right ventricle is moderately dilated, right ventricular systolic function is moderately reduced. There is severe pulmonary hypertension with RVSP 110. The right atrium is moderately dilated, left atrium size is notable. CAT scan of the chest performed on 11/25/2017 showed diffuse ground-glass, mosaic-appearing opacities seen throughout the upper lobes and less in the lower lobes, questionable early developing upper lobe alveolar-type infiltrate. Differential diagnosis would include air trap and diffuse pneumonitis, pulmonary arterial hypertension, or possibly mild early pulmonary edema. Clinical co-relation is recommended. ASSESSMENT AND PLAN: This 57-year-old gentleman with severe pulmonary hypertension, which likely is responsible for diffuse ground-glass opacification; however air trapping cannot be ruled out as well, especially in a patient who has longstanding chronic obstructive pulmonary disease. At present time, I would proceed with treating his chronic obstructive pulmonary disease with triple-inhaler therapy. Patient denies any shortness of breath, cough. He is able to walk about 150 yards without substantial shortness of breath. He clearly does not have signs of COPD exacerbation/flare. Thus ICS/LAMA/LABA will be initiated. Upon discharge, patient would need PFTs with spirometry, lung volumes and DLC0, right heart catheterization with vasoreactive challenge test. At present time, his pulmonary hypertension may be attributed to his chronic obstructive pulmonary disease; however, combination of etiologies (type I, III) cannot be ruled out as well. I would continue with conservative fluid managment, and avoid hypoxemia, I will send rheumo screen. While portopulmonary hypertension can cause RV failure as well, patient doesnt have stigmata of portal hypertension, nor signs of heptaic synthetic dysfunction. Hepatopulmonary syndrome may occur in advanced liver disease as well, but usually manifest as more of a hypoxemic picture along with orthodeoxia and platypnea, which patient doesnt have. If RHC performed and confirmed presence of severe pulmonary hypertension (out of proportion to severity of COPD), more close attention should be paid to confirm diagnosis of chronic liver disease/liver cirrhosis . He needs to quit smoking. O/p pulmonary consult within 7-10 days of discharge. William Navarro MD [facility] # [id number] MANDEEP
[2017-12-01] MEDS: Tiotropium 18 mcg Cap For Inhalation IH SCH (08:08)
--- NOTE | 2017-12-01 14:27 | PCM.PYCHPN ---
Psychiatric Progress Note - Psychiatric Progress Note Patient seen today, length of contact: 30min Patient Chief Complaint: "I was thinking if truck will kill me it would be okay, now medical doctor said that I have small lump in my lung and I feel I do care..." Problems Identified/Issues Discussed: Suicide/ homicide prevention, past psychiatric h/o, current psychiatric symptoms , medical problems, risk/benefits and alternatives of medications, medications compliance, coping strategies, substance abuse h/o, relapse prevention, importance of follow up with psychiatrist and therapist, discharge plan. 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, [facility]. pt s/p cardiac cath 11/29/17, stable condition. 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 patient was seen at the treatment team meeting, patient presented with improved personal hygiene, affect was brighter. At the same time patient reported that he feels depressed and keep thinking about "had life events in my life". Patient reported that his sleep is improving. This rewriter discuss he is medical issues, patient was advised to follow up with pulmonary hypertension clinic, discussed with in details today, following up appointment will be discussed with the patient by medical team at the time of discharge. he shouldn't tolerates medications well, no side effects observed or reported, aims 0, no EPS. Impression: Rule out major depressive disorder Rule out substance-induced mood disorder Rule out mood disorder due to general medical condition Opioid use disorder Medication Change: Yes Medical Record Reviewed: Yes Consults ordered or reviewed: patient was seen by theoretical physics teacher and real estate photographer yesterday Patient was seen by medical team Mental Status Examination - Cognitive Function Orientation: Person, Place, Situation Memory: Intact Attention: Poor Concentration: Poor Association: WNL - Mood Mood: Depressed, Anxious - Affect Affect: Flat - Speech Speech: Appropriate - Formal Thought Process Formal Thought Process: No Impairment - Suicidal Ideation Suicidal Ideation: No - Homicidal Ideation Homicidal Ideation: No Goal/Treatment Plan - Goal/Treatment Plan Need for Continued Stay: Remain at risks for inpatient hospitalization, Severe depression anxiety, Discharge may exacerbated symptoms, Failed transitioning, Severe functional impairment Progress Toward Problem(s) and Goals/Treatment Plan: milieu/structure/supportive therapy will continue all meds Aspirin [Ecotrin] 81 mg PO DAILY Lisinopril [Zestril] 10 mg PO DAILY Paroxetine HCl [Paxil] 10 mg PO HS QUEtiapine [Seroquel] 100 mg PO HS Tiotropium [Spiriva] 18 mcg IH DAILY amLODIPine [Norvasc] 10 mg PO DAILY Clopidogrel [Plavix] 75 mg PO DAILY Famotidine [Pepcid] 20 mg PO 1000,2200 Furosemide [Lasix] 40 mg PO DAILY paxil 10mg po hs for depression and anxiety sonata prn for insomnia Medical consult appreciated, see medical team note for more detailed info SW consultation for discharge plan and social issues Family involvement Follow up on labs Will monitor closely Pt was educated about risk/benefits and alternatives of medications, coping strategies (safety plan, suicide prevention), relapse prevention, importance of follow up with psychiatrist and therapist, stay away from drugs/alcohol/smoking Estimated Date of D/C: 12/06/17
--- NOTE | 2017-12-01 21:02 | PN ---
DATE: 12/01/2017 PULMONARY PROGRESS NOTE REFERRING PHYSICIAN: SUBJECTIVE: The patient is seen and examined at bedside. He is comfortable. He talks in full sentences. He is not in respiratory or otherwise distress. PHYSICAL EXAMINATION: VITAL SIGNS: Temperature 97.5, blood pressure 140/97, respiratory rate 19, oxygen saturation 98% on room air. HEENT: Head and neck atraumatic. LUNGS: Clear to auscultation bilaterally. HEART: Regular rate and rhythm. S1 and S2 normal. ABDOMEN: Soft, nontender, nondistended. MUSCULOSKELETAL: Trace bilateral pedal and ankle edema. SKIN: Moist. PSYCHIATRIC: The patient is alert, awake, and oriented x3. NEUROLOGIC: The patient moves all extremities spontaneously. LABORATORY DATA: Reviewed. MEDICATIONS: Tylenol p.r.n., Norvasc, Brovana, aspirin, Pulmicort, Pepcid, Lasix 40 mg daily, lisinopril, Paxil, Seroquel, Spiriva, and Sonata p.r.n. ASSESSMENT AND PLAN: This is 57-year-old gentleman who has been consulted by Pulmonary Service for his pulmonary hypertension and chronic obstructive pulmonary disease. The patient needs a right heart catheterization with vasoreactive challenge test upon discharge. The patient is to be referred to Pulmonary Hypertension Clinic. We are waiting for results of rheumotologic screen test. The patient does not have stigmata of liver cirrhosis or portal hypertension; however, if present, it may contribute or cause portopulmonary hypertension or hepatopulmonary syndrome, which needs to be taken into consideration as well (If pulmonary hypertension is found to be out of proportion to severity of COPD, GI involvement to confirm or exclude liver cirrhosis, would be recommended). Upon discharge, besides right heart catheterization with vasoreactive challenge test, the patient would need pulmonary function test with spirometry, lung volumes and DLCO, sleep study to rule out obstructive sleep apnea as a contributing factor, infection prophylaxis with vaccination, pulmonary rehab, triple inhaler therapy including LABA/LAMA/ICS is also recommended. Definitely quit smoking is recommended and was encouraged. The patient verbalized understanding to all above. ccm time 40 min William Navarro MD [facility] # [id number] MTDD
[2017-12-01] MEDS: Arformoterol 15 mcg/2 ml Inh Sol IH SCH (21:41)
[2017-12-01] MEDS: Budesonide 0.25 mg/2 ml Inhal Susp UD IH SCH (21:45)
[2017-12-02] MEDS: Tiotropium 18 mcg Cap For Inhalation IH SCH (08:37)
[2017-12-02] MEDS: Budesonide 0.25 mg/2 ml Inhal Susp UD IH SCH ×2 (08:55→20:40)
[2017-12-02] MEDS: Arformoterol 15 mcg/2 ml Inh Sol IH SCH ×2 (08:55→20:40)
--- NOTE | 2017-12-02 12:36 | PCM.PYCHPN ---
Psychiatric Progress Note - Psychiatric Progress Note Patient seen today, length of contact: 30min Patient Chief Complaint: "I was feeling trapped in the unit yesterday" Problems Identified/Issues Discussed: Suicide/ homicide prevention, past psychiatric h/o, current psychiatric symptoms , medical problems, risk/benefits and alternatives of medications, medications compliance, coping strategies, substance abuse h/o, relapse prevention, importance of follow up with psychiatrist and therapist, discharge plan. 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 pt s/p cardiac cath 11/29/17, stable condition. 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 patient was seen at the dinning area, patient presented with improved personal hygiene, affect was brighter. At the same time patient reported that he feels depressed and anxious. as per RN report, over night pt was feeling very anxious , this publicity writer suggested medical consult, pt was seen by resident, no acute findings, pt was given 0.5mg po ativan with big relief. pt will be started on 0.5mg of ativan tid prn. Patient reported that his sleep is improving, but pt said his mood is "up and down", pt wants increase seroquel to the previous dose of 200mg po hs. 12/01/17 This publicity writer discuss he is medical issues, patient was advised to follow up with pulmonary hypertension clinic, discussed with in details today , following up appointment will be discussed with the patient by medical team at the time of discharge. he shouldn't tolerates medications well, no side effects observed or reported, aims 0, no EPS. Impression: Rule out major depressive disorder Rule out substance-induced mood disorder Rule out mood disorder due to general medical condition Opioid use disorder Medication Change: Yes (Seroquel increasedPaxil increased) Medical Record Reviewed: Yes Mental Status Examination - Cognitive Function Orientation: Person, Place, Situation Memory: Intact Attention: Poor Concentration: Poor Association: WNL - Mood Mood: Depressed, Anxious - Affect Affect: Flat - Speech Speech: Appropriate - Formal Thought Process Formal Thought Process: No Impairment - Suicidal Ideation Suicidal Ideation: No - Homicidal Ideation Homicidal Ideation: No Goal/Treatment Plan - Goal/Treatment Plan Need for Continued Stay: Remain at risks for inpatient hospitalization, Severe depression anxiety, Discharge may exacerbated symptoms, Failed transitioning, Severe functional impairment Progress Toward Problem(s) and Goals/Treatment Plan: milieu/structure/supportive therapy will continue all meds Aspirin [Ecotrin] 81 mg PO DAILY Lisinopril [Zestril] 10 mg PO DAILY Paroxetine HCl [Paxil] 20 mg PO HS QUEtiapine [Seroquel] 150 mg PO HS Tiotropium [Spiriva] 18 mcg IH DAILY amLODIPine [Norvasc] 10 mg PO DAILY Clopidogrel [Plavix] 75 mg PO DAILY Famotidine [Pepcid] 20 mg PO 1000,2200 Furosemide [Lasix] 40 mg PO DAILY ativan 0.5 mg 3 times a day as needed for anxiety sonata prn for insomnia Medical consult appreciated, see medical team note for more detailed info SW consultation for discharge plan and social issues Family involvement Follow up on labs Will monitor closely Pt was educated about risk/benefits and alternatives of medications, coping strategies (safety plan, suicide prevention), relapse prevention, importance of follow up with psychiatrist and therapist, stay away from drugs/alcohol/smoking Estimated Date of D/C: 12/06/17
[2017-12-03 06:40] VITALS: O2SAT 93
[2017-12-03] MEDS: Budesonide 0.25 mg/2 ml Inhal Susp UD IH SCH ×2 (08:04→19:55)
[2017-12-03] MEDS: Arformoterol 15 mcg/2 ml Inh Sol IH SCH ×2 (08:04→19:55)
[2017-12-03] MEDS: Tiotropium 18 mcg Cap For Inhalation IH SCH (08:50)
--- NOTE | 2017-12-03 10:33 | PCM.PYCHPN ---
Psychiatric Progress Note - Psychiatric Progress Note Patient seen today, length of contact: 30min Patient Chief Complaint: "I feel little better' Problems Identified/Issues Discussed: Suicide/ homicide prevention, past psychiatric h/o, current psychiatric symptoms , medical problems, risk/benefits and alternatives of medications, medications compliance, coping strategies, substance abuse h/o, relapse prevention, importance of follow up with psychiatrist and therapist, discharge plan. 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. pt s/p cardiac cath 11/29/17, stable condition. 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 patient was seen at the dinning area, patient presented with improved personal hygiene, affect was brighter. At the same time patient reported that he feels depressed and anxious. as per RN report, pt was less anxious, no behaviora issues. Patient reported that his sleep is improving, appetite "is not that great" 12/01/17 This health technical writer discuss he is medical issues, patient was advised to follow up with pulmonary hypertension clinic, discussed with in details, following up appointment will be discussed with the patient by medical team at the time of discharge. he shouldn't tolerates medications well, no side effects observed or reported, aims 0, no EPS. Impression: Rule out major depressive disorder Rule out substance-induced mood disorder Rule out mood disorder due to general medical condition Opioid use disorder Medication Change: No (Seroquel increasedPaxil increased yesterday) Medical Record Reviewed: Yes Mental Status Examination - Cognitive Function Orientation: Person, Place, Situation Memory: Intact Attention: Poor Concentration: Poor Association: WNL - Mood Mood: Depressed, Anxious - Affect Affect: Flat - Speech Speech: Appropriate - Formal Thought Process Formal Thought Process: No Impairment - Suicidal Ideation Suicidal Ideation: No - Homicidal Ideation Homicidal Ideation: No Goal/Treatment Plan - Goal/Treatment Plan Need for Continued Stay: Remain at risks for inpatient hospitalization, Severe depression anxiety, Discharge may exacerbated symptoms, Failed transitioning, Severe functional impairment Progress Toward Problem(s) and Goals/Treatment Plan: milieu/structure/supportive therapy will continue all meds Aspirin [Ecotrin] 81 mg PO DAILY Lisinopril [Zestril] 10 mg PO DAILY Paroxetine HCl [Paxil] 20 mg PO HS QUEtiapine [Seroquel] 150 mg PO HS Tiotropium [Spiriva] 18 mcg IH DAILY amLODIPine [Norvasc] 10 mg PO DAILY Clopidogrel [Plavix] 75 mg PO DAILY Famotidine [Pepcid] 20 mg PO 1000,2200 Furosemide [Lasix] 40 mg PO DAILY ativan 0.5 mg 3 times a day as needed for anxiety sonata prn for insomnia Medical consult appreciated, see medical team note for more detailed info SW consultation for discharge plan and social issues Family involvement Follow up on labs Will monitor closely Pt was educated about risk/benefits and alternatives of medications, coping strategies (safety plan, suicide prevention), relapse prevention, importance of follow up with psychiatrist and therapist, stay away from drugs/alcohol/smoking Estimated Date of D/C: 12/06/17
[2017-12-04 07:15] VITALS: RESP 20
[2017-12-04] MEDS: Budesonide 0.25 mg/2 ml Inhal Susp UD IH SCH ×2 (07:51→21:03)
[2017-12-04] MEDS: Arformoterol 15 mcg/2 ml Inh Sol IH SCH ×2 (07:51→21:03)
[2017-12-04] MEDS: Tiotropium 18 mcg Cap For Inhalation IH SCH (08:52)
--- NOTE | 2017-12-04 14:51 | CP.PCM.PCO ---
Physician Communication Note - Physician Communication Note Physician Communication Note: Rx's refilled; advised to follow up o/p with Pulmonary Hypertension Clinic
--- NOTE | 2017-12-04 16:13 | PCM.PYCHPN ---
Psychiatric Progress Note - Psychiatric Progress Note Patient seen today, length of contact: 30min Patient Chief Complaint: "I feel better, I want to go home" Problems Identified/Issues Discussed: Suicide/ homicide prevention, past psychiatric h/o, current psychiatric symptoms , medical problems, risk/benefits and alternatives of medications, medications compliance, coping strategies, substance abuse h/o, relapse prevention, importance of follow up with psychiatrist and therapist, discharge plan. 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 pt s/p cardiac cath 11/29/17, stable condition. 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 patient was seen at the dinning area, patient presented with improved personal hygiene, affect was brighter. At the same time patient reported that he feels better, sleep improved, mood is more optimistic, as per RN report, pt was less anxious, no behaviora issues. pt will be d/c tomorrow, d/w medical team, pt needs to be f/u with specialists pulmonologists, pulmonary hypertension specialists. Medical f/u appreciated, pt was educated about his aftercare plan, pt was appreciative and verbalized understanding. pt tolerates medications well, no side effects observed or reported, aims 0, no EPS. Impression: Rule out major depressive disorder Rule out substance-induced mood disorder Rule out mood disorder due to general medical condition Opioid use disorder Medication Change: Yes (Seroquel increased) Medical Record Reviewed: Yes Mental Status Examination - Cognitive Function Orientation: Person, Place, Situation Memory: Intact Attention: Poor (improved) Concentration: Poor (improved) Association: WNL - Mood Mood: Depressed ("I feel better") - Affect Affect: Flat - Speech Speech: Appropriate - Formal Thought Process Formal Thought Process: No Impairment - Suicidal Ideation Suicidal Ideation: No - Homicidal Ideation Homicidal Ideation: No Goal/Treatment Plan - Goal/Treatment Plan Need for Continued Stay: Remain at risks for inpatient hospitalization, Severe depression anxiety, Discharge may exacerbated symptoms, Failed transitioning, Severe functional impairment Progress Toward Problem(s) and Goals/Treatment Plan: milieu/structure/supportive therapy will continue all meds Aspirin [Ecotrin] 81 mg PO DAILY Lisinopril [Zestril] 10 mg PO DAILY Paroxetine HCl [Paxil] 20 mg PO HS QUEtiapine [Seroquel] 200 mg PO HS Tiotropium [Spiriva] 18 mcg IH DAILY amLODIPine [Norvasc] 10 mg PO DAILY Clopidogrel [Plavix] 75 mg PO DAILY Famotidine [Pepcid] 20 mg PO 1000,2200 Furosemide [Lasix] 40 mg PO DAILY ativan 0.5 mg 3 times a day as needed for anxiety sonata prn for insomnia Medical consult appreciated, see medical team note for more detailed info SW consultation for discharge plan and social issues Family involvement Follow up on labs Will monitor closely Pt was educated about risk/benefits and alternatives of medications, coping strategies (safety plan, suicide prevention), relapse prevention, importance of follow up with psychiatrist and therapist, stay away from drugs/alcohol/smoking Estimated Date of D/C: 12/05/17 (pt wants to be d/c tomorrow)
[2017-12-05 06:57] VITALS: BP 118/85; PULSE 75; TEMP 97.8
[2017-12-05] MEDS: Budesonide 0.25 mg/2 ml Inhal Susp UD IH SCH (08:06)
[2017-12-05] MEDS: Arformoterol 15 mcg/2 ml Inh Sol IH SCH (08:06)
[2017-12-05] MEDS: Tiotropium 18 mcg Cap For Inhalation IH SCH (09:01)
--- NOTE | 2017-12-05 17:48 | PCM.PYCHDC ---
Mental Status Examination - Mental Status Examination Orientation: Person, Place, Situation, Time Memory: Intact Mood: Neutral Affect: Broad (and mood congruent) Speech: Appropriate Attention: WNL Concentration: WNL Association: WNL Fund of Knowledge: WNL Formal Thought Process: No Impairment Description of patient's judgement and insight: Pt has improved insight into mental and medical illness, pt was compliant with medications and unit rules and regulations, pt was going to groups, was calm, cooperative, socially appropriate, no behavioral incidents, no agitation, no aggression. Psychotic Thoughts and Behaviors: Pt denied v/a/t hallucinations, denied paranoid ideations, pt does not appear to be psychotic, and thought process is goal directed. Suicidal Ideation: No Current Homicidal Ideation?: No Plan: pt adamantly denied thoughts of harming self or others denied intent or plan. Discharge Summary - Discharge Note Reason for Hospitalization: pt was transferred from the medical floor for evaluation of depressive symptoms , hopelessness and passive wish to be . Psychiatric History (includes Medical, Family, Personal Hx): see HPI Laboratory Data: Abnormal Lab Results 12/01/17 06:00 GUI Screen Negative Vital Signs Temp Pulse Resp BP Pulse Ox 12/05/17 09:00 75 118/85 12/05/17 08:59 118/85 12/05/17 08:58 118/85 12/05/17 06:56 97.8 F 75 20 118/85 12/04/17 16:00 87 143/92 H 12/04/17 08:52 141/85 12/04/17 07:13 98.1 F 76 20 141/85 12/03/17 15:00 98 H 130/86 12/03/17 08:51 123/83 12/03/17 08:50 123/83 12/03/17 07:00 98.0 F 75 18 123/83 12/03/17 06:36 98 F 75 20 123/83 93 L 12/02/17 15:57 88 138/93 H 12/02/17 08:37 111/74 12/02/17 08:36 69 111/74 12/02/17 06:26 98.2 F 69 16 111/74 12/01/17 16:00 82 140/97 H 12/01/17 15:41 140/97 H 12/01/17 15:40 140/97 H 12/01/17 06:39 97.5 F L 67 19 104/66 11/30/17 16:17 87 146/103 H 11/30/17 08:16 142/96 H 11/30/17 06:50 98.5 F 75 20 142/96 H 11/29/17 21:30 97.8 F 101 H 22 146/98 H 98 Consultations:: List each consultation separately and include: 1. Reason for request. 2. Findings. 3. Follow-up Consultations: patient was seen by chute puller and environmental health officer Patient was seen by medical team all appropriate referrals were given to the pt. Summary of Hospital Course include:: 1. Description of specific treatment plan utilized for patients during their course of treatmen. 2. Summarize the time- course for resolution of acute symptoms and/or regressed behaviors. 3. Describe issues identified and worked on during hospitalization. 4. Describe medication utilized. 5. Describe medical problems identified and treated. 6. 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 pt is familiar to this fiction writer from the previous hospitalization which took place this hospital less than a year ago. pt said after he was discharged from the hospital, he was doing "well for two weeks, then I stopped taking medications because I didn't know that I have refills", pt said he staid with his brother, pt reported he relapsed on heroin, was "using heavy since last ". vision presented to be depressed, hopeless, helpless, pt was blaming himself for all the mistake he made in his life. Patient reported that that she was feeling depressed because he has no job, he has a lot of free time, patient reported that he was using heroin in snorting, patient has history or being on heroine IV drug use for more than 25 years, patient reported that his veins are collapsed and now he can only snort heroine. Patient has multiple rehabs, detoxes in the past, the longest period of sobriety is 8 years while he was incarcerated. Patient reported that he had difficulties to fall and stay asleep. Treatment goals: "I want to feel better" pt reported to smoke about 3cigarettes a day, refused nicotine patch, counseling provided. pt denied hearing voices, denied seeing things, denied paranoid ideation. History of multiple arrests, incarcerations, history of being witness of violence in the community. denied PTSD. past psychiatric history: patient had one admission, denied history of suicidal attempts. Family history: Patient denied family history of mental illness, but history or substance abuse as well as incarcerations. Medical issues: CVA with residual weakness on the right side, chronic back pain, obesity, hypertension, discussed case with 11/30/17, pt has pulmonary hypertension, prognosis poor, pt needs to be f/u with [facility], [facility]. pt s/p cardiac cath 11/29/17, stable condition. Lab Results 11/30/17 07:00: TSH 3rd Generation 0.11 L 11/30/17 07:00: Fasting Glucose 127 H, Triglycerides 51, Cholesterol 164, LDL Cholesterol Direct 89, HDL Cholesterol 53 Vital Signs Temp Pulse Resp BP Pulse Ox 11/30/17 08:16 142/96 H 11/30/17 06:50 98.5 F 75 20 142/96 H 11/29/17 21:30 97.8 F 101 H 22 146/98 H 98 medical consult appreciated: Severe Pulmonary HTN - Etiology: Interstitial lung disease vs. COPD - Echo showing RVSP 110mmHg - Chest CT showing ground glass opacities, mosaic appearing opacities seen throughout the upper lobes and less of the lower lobes. Questionable early developing upper lobe alveolar-type infiltrates. Few scattered nodular opacities are also seen in the left upper lobe, small nodular density also noted posterolateral aspect right upper lobe. mild dilatation pulmonary trunk - Pulmonary consult, f/u recs - Six minute walk test, f/u results ETOH abuse - Cessation counseling offered Tobacco abuse - Cessation counseling offered Hx of HTN - Continue home medications patient was stabilized on the following medications: Paroxetine HCl [Paxil] 20 mg PO HS or depression and anxiety QUEtiapine [Seroquel] 200 mg PO HS for mood stabilization ativan 0.5 mg 3 times a day as needed for anxiety patient tolerated medications well, no side effects observed or reported, aims 0 , no EPS. Over the course of this hospitalization pt was attending groups, pt also had medication management, had therapeutic milieu. Overall pt improved significantly, pt's affect became brighter, pt was less depressed, has realistic future oriented plans pt wants to take care of his physical health, pt also does not appear to be psychotic, or anxious, pt was socially appropriate, no behavioral issues, pts insight improved as well and soon pt deemed to be ready for discharge. At the time of the discharge pt denied been depressed, denied thoughts of harming self or others, denied psychotic symptoms, and pt does not appeared to be psychotic, denied been anxious, pt is not in imminent danger to self or others, will be following up at [facility], information about follow up appointment, time and address provided to the pt, it is patient responsibility to follow up with outpatient clinic, PMD as well as specialists (see SW note for more detailed information). In case pt will need to obtain results of studies pending at discharge pt was provided with contact information of Psychiatric Inpatient unit [phone] as well as Medical Record Department [phone]. Nicotine patch was offered, pt refused Naltrexone treatment is not indicated at this time, pt recently used opioids Counseling about smoking and alcohol drug cessation provided AA meetings as well as smoking cessation treatment program information was provided by the pt was provided with prescriptions for all of medications (please see medication reconciliation form) Pt was educated about safety plan in case of worsening of symptoms or in case of suicidal or homicidal ideation call 911 or go to the nearest ER, also was educated to take meds as prescribed and stay away from drugs, pt verbalized understanding. - Diagnosis (1) MDD (major depressive disorder) Status: Acute Priority: Medium (2) Opiate dependence Status: Chronic Priority: High - Final Diagnosis (DSM 5) Condition upon Discharge: GOOD Disposition: HOME/ ROUTINE Follow-up Treatment Plan: At the time of the discharge pt denied been depressed, denied thoughts of harming self or others, denied psychotic symptoms, and pt does not appeared to be psychotic, denied been anxious, pt is not in imminent danger to self or others, will be following up at [facility], information about follow up appointment, time and address provided to the pt, it is patient responsibility to follow up with outpatient clinic, PMD as well as specialists (see SW note for more detailed information). In case pt will need to obtain results of studies pending at discharge pt was provided with contact information of Psychiatric Inpatient unit [phone] as well as Medical Record Department [phone]. Nicotine patch was offered, pt refused Naltrexone treatment is not indicated at this time, pt recently used opioids Counseling about smoking and alcohol drug cessation provided AA meetings as well as smoking cessation treatment program information was provided by the pt was provided with prescriptions for all of medications (please see medication reconciliation form) Pt was educated about safety plan in case of worsening of symptoms or in case of suicidal or homicidal ideation call 911 or go to the nearest ER, also was educated to take meds as prescribed and stay away from drugs, pt verbalized understanding. this fiction writer emphasized the fact to the pt that he needs to be f/u with PMD, pulmonary hypertension clinic, pt was offered to have a family meeting, pt refused, pt said he wants to "speak to my sons myself" Prescriptions/Medication Reconciliation: amLODIPine [Norvasc] 10 mg PO DAILY #7 tab Aspirin [Ecotrin] 81 mg PO DAILY #7 tabec Clopidogrel [Plavix] 75 mg PO DAILY #30 tab Famotidine [Pepcid] 20 mg PO 1000,2200 #30 tab Furosemide [Lasix] 40 mg PO DAILY #30 tab Lisinopril [Zestril] 10 mg PO DAILY #7 tab LORazepam [Ativan] 0.5 mg PO BID PRN #30 tab PRN Reason: Anxiety PARoxetine [Paxil] 20 mg PO HS #14 tab QUEtiapine [SEROquel] 200 mg PO HS #14 tab Tiotropium [Spiriva] 18 mcg IH DAILY #1 cap - Smoking Cessation Smoking Cessation Medication prescribed: No Reason for not providing: pt refused - Antipsychotic Medications Pt discharged on 2 or more routine antipsychotic medications: No
== END 2017-12-05 12:02 | disposition home or self-care (01) | DRG 426 ==
LOC: PSYC 21:27
PROVIDERS: ADMIT Psychiatry & Neurology Psychiatry; ATTEND Psychiatry & Neurology Psychiatry
PROC: GZ3ZZZZ Medication Management (ICD-10-PCS; principal; 2017-11-30)
DX: F32.9 Major depressive disorder, single episode, unspecified (principal); F11.20 Opioid dependence, uncomplicated; B19.20 Unspecified viral hepatitis C without hepatic coma; F11.10 Opioid abuse, uncomplicated; J44.9 Chronic obstructive pulmonary disease, unspecified; I69.351 Hemiplegia and hemiparesis following cerebral infarction affecting right dominant side; I10 Essential (primary) hypertension; I27.29 Other secondary pulmonary hypertension; I25.10 Atherosclerotic heart disease of native coronary artery without angina pectoris; G89.29 Other chronic pain; M54.9 Dorsalgia, unspecified; F41.9 Anxiety disorder, unspecified; E66.9 Obesity, unspecified; Z68.33 Body mass index [BMI] 33.0-33.9, adult; Z79.02 Long term (current) use of antithrombotics/antiplatelets; Z79.82 Long term (current) use of aspirin

== ENCOUNTER 2018-08-25 13:16 | Emergency (ER) | payer MEDICAID ==
[2018-08-25 13:25] VITALS: BMI 34.0
[2018-08-25 13:30] VITALS: RESP 18; TEMP 97.3
[2018-08-25] MEDS ORDERED: Silver Sulfadiazine 1% Cream (25 gm) TP STA (14:08)
[2018-08-25] MEDS ORDERED: Oxycodone/Acetaminophen 5/325 mg Tab PO STA (14:08)
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
[2018-08-25 16:16] VITALS: BP 146/78; PULSE 76; O2SAT 97
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
== END 2018-08-25 16:16 | disposition home or self-care (01) ==
LOC: ED 13:16
DX: T24.011A Burn of unspecified degree of right thigh, initial encounter (principal); X10.0XXA Contact with hot drinks, initial encounter; Y92.009 Unspecified place in unspecified non-institutional (private) residence as the place of occurrence of the external cause; I69.351 Hemiplegia and hemiparesis following cerebral infarction affecting right dominant side; I10 Essential (primary) hypertension; J44.9 Chronic obstructive pulmonary disease, unspecified